=== PATIENT | female | born 1970 | race Caucasian/White ===

== ENCOUNTER → 2016-09-05 | Outpatient (CLI) | payer MEDICAID | LOC: OD 11:19 | PROVIDERS: ATTEND Physician Assistant Medical | DX: I39 Endocarditis and heart valve disorders in diseases classified elsewhere (principal) | CPT/HCPCS: 87040 ==

== ENCOUNTER → 2016-09-20 | Outpatient (CLI) | payer MEDICAID | LOC: RAD 13:03 | PROVIDERS: ATTEND Specialist | DX: R91.1 Solitary pulmonary nodule (principal); R22.0 Localized swelling, mass and lump, head | CPT/HCPCS: 70486; 71020 ==

== ENCOUNTER → 2016-10-19 | Outpatient (CLI) | payer MEDICAID ==
[2016-10-19 10:28] LABS: ALANINE AMINOTRANSFERASE 37 U/L (9-52); ALKALINE PHOSPHATASE 107 U/L (38-126); ANION GAP 15 (5-19); ASPARTATE AMINO TRANSFERASE 39 U/L (14-36); BILIRUBIN,DIRECT 0.3 mg/dL (0.0-0.4); BILIRUBIN,TOTAL 0.4 mg/dL (0.2-1.3); BLOOD UREA NITROGEN 9 mg/dL (7-20); C-REACTIVE PROTEIN 25.3 mg/L (<10.0); CALCIUM 9.2 mg/dL (8.4-10.2); CARBON DIOXIDE 30 mmol/L (22-30); CHLORIDE 101 mmol/L (98-107); CREATININE RESULT 0.79 mg/dL (0.52-1.25); GLUCOSE 101 mg/dL (75-110); POTASSIUM 4.4 mmol/L (3.6-5.0); SODIUM 145.7 mmol/L (137-145); TOTAL PROTEIN 7.6 g/dL (6.3-8.2); URIC ACID 4.7 mg/dL (2.5-7.5)
[2016-10-19 10:39] LABS: ALBUMIN 4.4 g/dL (3.5-5.0)
== END ==
LOC: OD 08:58
PROVIDERS: ATTEND Family Medicine
DX: M25.571 Pain in right ankle and joints of right foot (principal)
CPT/HCPCS: 36415; 80053; 84550; 85652; 86038; 86140; 86430

== ENCOUNTER 2016-11-16 08:23 | Outpatient (CLI) | payer MEDICAID ==
[~2016-11-16 08:23] MED LIST: FERRIC CARBOXYMALTOSE 750 MG in NORMAL SALINE 250 ML IV PRN; NORMAL SALINE 250 ML IV PRN
[2016-11-16 10:28] VITALS: BP 123/63
== END 2016-11-16 09:45 | disposition home or self-care (01) ==
LOC: II 08:23 → 5TH 08:26 → II 09:45
PROVIDERS: ATTEND Specialist
PROC: 3E033GC Introduction of Other Therapeutic Substance into Peripheral Vein, Percutaneous Approach (ICD-10-PCS; principal; 2016-11-16)
DX: D50.9 Iron deficiency anemia, unspecified (principal); K90.9 Intestinal malabsorption, unspecified
CPT/HCPCS: 96374; J7050; J1439; 96367

== ENCOUNTER 2016-11-23 08:32 | Outpatient (CLI) | payer MEDICAID ==
[2016-11-23 09:07] VITALS: BP 135/55
== END 2016-11-23 09:36 | disposition home or self-care (01) ==
LOC: II 08:32 → 5TH 08:33 → II 09:36
PROVIDERS: ATTEND Specialist
PROC: 3E033GC Introduction of Other Therapeutic Substance into Peripheral Vein, Percutaneous Approach (ICD-10-PCS; principal; 2016-11-23)
DX: D72.829 Elevated white blood cell count, unspecified (principal)
CPT/HCPCS: 96365; 96360; J7050; J1439

== ENCOUNTER 2016-12-24 09:20 | Day surgery (SDC) | payer MEDICAID ==
[~2016-12-24 09:20] MED LIST changes: -FERRIC CARBOXYMALTOSE 750 MG in NORMAL SALINE 250 ML IV PRN; -NORMAL SALINE 250 ML IV PRN; +PROPOFOL INJ 200 MG/20 ML VIAL IV ONE
[2016-12-24 11:03] VITALS: BP 100/55
--- NOTE | 2016-12-24 12:54 | Operative Report ---
Operative Report DATE OF SURGERY: 12/24/16 Operative Report: The risks, benefits and alternatives of the procedure including risks of bleeding, perforation requiring surgery are explained to the patient detail and informed consent was obtained. Patient was placed in the left, lateral decubital position. Timeout was called. Propofol medications administered. An Olympus endoscope was inserted into the patient's rectum. The scope was then carefully guided all the way to the cecum. The cecum was identified by the usual anatomical landmarks including the ileocecal valve as well as the appendiceal office. Photodocumentation is obtained. The scope was then sequentially pulled back. The rest segments of the colon including the ascending colon, hepatic flexure, transverse colon, splenic flexure, descending colon and finally to the rectosigmoid portions of the colon. Retroflexion maneuver was performed. Prep could have been better. There are several areas of solid residual material , this decreased visualization. PREOPERATIVE DIAGNOSIS: Personal history of polyps. Left lower quadrant abdominal pain. Family history of colorectal cancer POSTOPERATIVE DIAGNOSIS: Right side colon Inflammation status post biopsy. Internal hemorrhoids OPERATION: Colonoscopy with biopsy SURGEON: JOSE DAN ANESTHESIA: LMAC TISSUE REMOVED OR ALTERED: Right side colon Specimens obtained as noted COMPLICATIONS: None. ESTIMATED BLOOD LOSS: None. INTRAOPERATIVE FINDINGS: No AVMs, diverticulosis noted. PROCEDURE: Patient tolerated the procedure well. No immediate postprocedure complications are noted. Patient discharged in good condition. Discharge date 12/24/2016. Discharge diet: Regular. Discharge activity: Regular. 2-3 week follow-up to discuss findings. Patient is instructed to call the office or proceed to the emergency room should there be any further problems or questions. We will wait on pathology. 5 year surveillance colonoscopy is indicated.
== END 2016-12-24 10:55 | disposition home or self-care (01) ==
LOC: END 09:20
PROVIDERS: ATTEND Internal Medicine Gastroenterology
PROC: 0DBF8ZX Excision of Right Large Intestine, Via Natural or Artificial Opening Endoscopic, Diagnostic (ICD-10-PCS; principal; 2016-12-24 11:00)
DX: K52.9 Noninfective gastroenteritis and colitis, unspecified (principal); K64.8 Other hemorrhoids; Z86.010 Personal history of colon polyps; Z80.0 Family history of malignant neoplasm of digestive organs; E03.9 Hypothyroidism, unspecified; Z88.0 Allergy status to penicillin; Z88.2 Allergy status to sulfonamides; Z91.040 Latex allergy status
CPT/HCPCS: 45380; 88305 ×2; J2704; 810

== ENCOUNTER → 2017-01-09 | Outpatient (CLI) | payer MEDICAID ==
--- NOTE | 2017-01-09 15:07 | WOMENS IMAGING REPORT ---
EXAM DESCRIPTION: BILAT SCREENING MAMMO W/CAD COMPLETED DATE/TIME: 01/09/2017 10:52 am REASON FOR STUDY: Z12.31, ROUTINE SCREENING MAMMO Z12.31 ENCNTR SCREEN MAMMOGRAM FOR MALIGNANT NEOP LASM OF LOGAN COMPARISON: None. TECHNIQUE: Standard craniocaudal and mediolateral oblique views of each breast recorded using PROTEIN LOUNGEa l acquisition. LIMITATIONS: None. FINDINGS: No masses, calcifications or architectural distortion. No areas of suspicion. Read with the assistance of CAD. .[facility] - R2 Cenova Version 1.3 .[facility] - R2 Cenova Version 1.3 .[facility] - R2 Cenova Version 2.4 .[facility] - R2 Cenova Version 2.4 .[facility] - R2 Senior Quality Control Inspector Version 9.2 IMPRESSION: NORMAL MAMMOGRAM. BIRADS 1. BREAST DENSITY: a. The breasts are almost entirely fatty. BIRAD: 1 NEGATIVE RECOMMENDATION: ROUTINE SCREENING COMMENT: The patient has been notified of the results by letter per SA requirements. Additional no tification policies are in place for contacting patient with suspicious or incomplete findings. Quality ID #225: The [employer] recommends an annual screening mammogram for women aged 40 years or over. This facility utilizes a reminder system to ensure that all patients receive reminder letters, and/or direct phone calls for appointments. This includes reminders for routine scr eening mammograms, diagnostic mammograms, or other Breast Imaging Interventions when appropriate. Th is patient will be placed in the appropriate reminder system. The [employer] (ACR) has developed recommendations for screening MRI of the breast s in certain patient populations, to be used in conjunction with mammography. Breast MRI surveillanc e may be appropriate for women with more than 20% lifetime risk of developing breast cancer as deter mined by genetic testing, significant family history of the disease, or history of mantle radiation f or Hodgkins Disease. ACR Practice Guidelines 2008. TECHNICAL DOCUMENTATION: FINDING NUMBER: (1) ASSESSMENT: (1) JOB ID: [id number] [employer]- All Rights Reserved
== END ==
LOC: WI 10:21
PROVIDERS: ATTEND Obstetrics & Gynecology
DX: Z12.31 Encounter for screening mammogram for malignant neoplasm of breast (principal)
CPT/HCPCS: 77067; G0202

== ENCOUNTER → 2017-01-11 | Outpatient (CLI) | payer MEDICAID ==
[2017-01-11 10:40] LABS: ALANINE AMINOTRANSFERASE 63 U/L (9-52); ALBUMIN 4.4 g/dL (3.5-5.0); ALKALINE PHOSPHATASE 94 U/L (38-126); ASPARTATE AMINO TRANSFERASE 60 U/L (14-36); BILIRUBIN,DIRECT 0.4 mg/dL (0.0-0.4); BILIRUBIN,TOTAL 0.4 mg/dL (0.2-1.3); TOTAL PROTEIN 7.3 g/dL (6.3-8.2)
--- NOTE | 2017-01-11 10:57 | RADIOLOGY REPORT (SQ) ---
EXAM DESCRIPTION: HIPS BILATERAL COMPLETED DATE/TIME: 01/11/2017 9:50 am REASON FOR STUDY: PRIMARY OSTEOARTHRITIS, UNSPECIFIED SITE M50.30 OTHER CERVICAL DISC DEGENERATION, UNSP CERVICAL REGIO M51.36 OTHER INTERVERTEBRAL DISC DEGENERATION, LUMBAR REGION M19.91 PRIMARY OS TEOARTHRITIS, UNSPECIFIED SITE COMPARISON: None. NUMBER OF VIEWS: Two views TECHNIQUE: AP pelvis and additional frog-leg view of both hips. LIMITATIONS: None. FINDINGS: MINERALIZATION: Normal. HIPS: No acute fracture or dislocation. No worrisome bone lesions. PELVIS AND SACRUM: No acute fracture or dislocation. No worrisome bone lesions. PUBIS AND ISCHIUM: No acute fracture. LOWER LUMBAR SPINE: No significant findings as visualized. SOFT TISSUES: No findings. OTHER: No other significant finding. IMPRESSION: NEGATIVE STUDY OF THE PELVIS AND HIPS. TECHNICAL DOCUMENTATION: JOB ID: [id number] [email or web address]- All Rights Reserved
--- NOTE | 2017-01-11 11:01 | RADIOLOGY REPORT (SQ) ---
EXAM DESCRIPTION: C SP 4 OR 5 VIEWS COMPLETED DATE/TIME: 01/11/2017 9:50 am REASON FOR STUDY: OTHER CERVICAL DISC DEGENERATION, UNSP CERVICAL REGION,OTHER INTERVERTEBRAL M50.30 OTHER CERVICAL DISC DEGENERATION, UNSP CERVICAL REGIO M51.36 OTHER INTERVERTEBRAL DISC DEGENERATIO N, LUMBAR REGION M19.91 PRIMARY OSTEOARTHRITIS, UNSPECIFIED SITE COMPARISON: None. NUMBER OF VIEWS: Five views. TECHNIQUE: AP, lateral, obliques and odontoid radiographic images acquired of the cervical spine. LIMITATIONS: None. FINDINGS: MINERALIZATION: Normal. ALIGNMENT: Anatomic. VERTEBRAE: Vertebral bodies of normal height. DISCS: No significant osteophytes or sclerosis. Disc height maintained. FORAMINA: There is some degree of narrowing of the right neural foramen at C6-7 secondary to hypertro phic facet changes. LATERAL AND POSTERIOR ELEMENTS: Hypertrophic facet changes are present at several levels on the right side. HARDWARE: None in the spine. SOFT TISSUES: No masses or calcifications. Lung apices clear. OTHER: No other significant finding. IMPRESSION: Spondylosis and facet arthropathy as described. TECHNICAL DOCUMENTATION: JOB ID: [id number] [employer]- All Rights Reserved
--- NOTE | 2017-01-11 11:04 | RADIOLOGY REPORT (SQ) ---
EXAM DESCRIPTION: LUMBAR SPINE COMPLETE COMPLETED DATE/TIME: 01/11/2017 9:50 am REASON FOR STUDY: OTHER INTERVERTEBRAL DISC DEGENERATION, LUMBAR REGION M50.30 OTHER CERVICAL DISC DEGENERATION, UNSP CERVICAL REGIO M51.36 OTHER INTERVERTEBRAL DISC DEGENERATION, LUMBAR REGION M19.9 1 PRIMARY OSTEOARTHRITIS, UNSPECIFIED SITE COMPARISON: 09/09/2012 NUMBER OF VIEWS: Five views including obliques. TECHNIQUE: AP, lateral, oblique, and sacral radiographic images acquired of the lumbar spine. LIMITATIONS: None. FINDINGS: MINERALIZATION: Normal. SEGMENTATION: Normal. No transitional anatomy. ALIGNMENT: There is mild levoscoliosis at the thoracolumbar junction. VERTEBRAE: Maintained height. No fracture or worrisome bone lesion. DISCS: There is narrowing of the T12-L1 disc space. There is mild narrowing of the L2-3 and L3-4 dis c spaces. POSTERIOR ELEMENTS: Mild hypertrophic facet changes are present at L4-5 and L5-S1. HARDWARE: None in the spine. PARASPINAL SOFT TISSUES: Normal. PELVIS: Intact as visualized. No fractures or worrisome bone lesions. SI joints intact. OTHER: No other significant finding. IMPRESSION: There are mild degenerative disc changes and there is mild facet arthropathy. TECHNICAL DOCUMENTATION: JOB ID: [id number] [employer]- All Rights Reserved
[2017-01-12 03:37] LABS: HEPATITIS C VIRUS AB <0.1 s/co ratio (0.0-0.9)
== END ==
LOC: OD 08:59
PROVIDERS: ATTEND Obstetrics & Gynecology
DX: R94.5 Abnormal results of liver function studies (principal); M16.0 Bilateral primary osteoarthritis of hip; M50.30 Other cervical disc degeneration, unspecified cervical region; M51.36 Other intervertebral disc degeneration, lumbar region
CPT/HCPCS: 36415; 72050; 72110; 73522; 80076; 86803; 86804

== ENCOUNTER 2017-01-16 08:36 | Day surgery (SDC) | payer MEDICAID ==
[2017-01-08 11:24] LABS: HEMATOCRIT 45.6 % (36.0-47.0); HEMOGLOBIN 15.1 g/dL (12.0-15.5); HGB HCT DIFFERENCE -0.3; MEAN CORPUSCULAR HEMOGLOBIN 29.7 pg (27.0-33.4); MEAN CORPUSCULAR HGB CONC 33.2 g/dL (32.0-36.0); MEAN CORPUSCULAR VOLUME 90 fl (80-97); RED BLOOD COUNT 5.09 10^6/uL (3.72-5.28); RED CELL DISTRIBUTION WIDTH 17.4 % (11.5-14.0); WHITE BLOOD COUNT 13.4 10^3/uL (4.0-10.5)
[2017-01-08 11:46] LABS: ANION GAP 12 (5-19); BLOOD UREA NITROGEN 10 mg/dL (7-20); CALCIUM 9.1 mg/dL (8.4-10.2); CARBON DIOXIDE 30 mmol/L (22-30); CHLORIDE 100 mmol/L (98-107); CREATININE RESULT 0.73 mg/dL (0.52-1.25); GLUCOSE 77 mg/dL (75-110); POTASSIUM 4.1 mmol/L (3.6-5.0); SODIUM 141.6 mmol/L (137-145)
--- NOTE | 2017-01-08 23:38 | EKG REPORT ---
SEVERITY:- NORMAL ECG - SINUS RHYTHM : Confirmed by: Radha Vidal 08-Jan-2017 23:37:42
[~2017-01-16 08:36] MED LIST changes: +CIPROFLOXACIN 400 MG/D5W RTU 400 MG/200 ML RTUPB IV PRN; +LACTATED RINGERS 1000 ML IV PRN; +LIDOCAINE 0.5% INJ-PF (5 MG/ML) 50 ML SDV SUBCUT PRN; -PROPOFOL INJ 200 MG/20 ML VIAL IV ONE
[2017-01-16] MEDS ORDERED: MIDAZOLAM 2 MG/2 ML INJ ONE (09:54)
[2017-01-16] MEDS ORDERED: FENTANYL CITRATE INJ/PF 250 MCG/5 ML AMPULE ONE (09:54)
[2017-01-16] MEDS ORDERED: ACETAMINOPHEN 100 ML IV ONE (09:55)
[2017-01-16] MEDS ORDERED: PROPOFOL INJ 200 MG/20 ML VIAL IV ONE (09:55)
[2017-01-16] MEDS ORDERED: BUPIVACAINE HCL 0.25 % INJ/PF (2.5 MG/1 ML) 30 ML VIAL ONE (10:03)
[2017-01-16] MEDS ORDERED: PROMETHAZINE HCL INJ 25 MG/1 ML VIAL IV PRN ×2 (10:37)
[2017-01-16] MEDS ORDERED: FENTANYL CITRATE INJ/PF 100 MCG/2 ML AMPUL IV PRN ×3 (10:37)
[2017-01-16] MEDS ORDERED: OXYCODONE-ACETAMINOPHEN 5-325 MG TABLET PO PRN ×3 (10:37→11:08)
[2017-01-16] MEDS ORDERED: MORPHINE SULFATE 10 MG/ML INJ IV PRN ×2 (10:37→11:08)
[2017-01-16] MEDS ORDERED: MEPERIDINE HCL/PF INJ 25 MG/1 ML DISP.SYRIN IV PRN (10:37)
[2017-01-16] MEDS ORDERED: DIPHENHYDRAMINE HCL 50 MG/ML VIAL IV PRN (10:37)
--- NOTE | 2017-01-16 11:07 | Operative Report ---
Operative Report DATE OF SURGERY: 01/16/17 PREOPERATIVE DIAGNOSIS: Symptomatic umbilical hernia POSTOPERATIVE DIAGNOSIS: Same OPERATION: Umbilical herniorrhaphy with primary closure and Covidien mesh reinforcement 9 cm diameter SURGEON: RUTH KENNEY METAL HARDENER: RICHY HUERTAS ANESTHESIA: GA TISSUE REMOVED OR ALTERED: None COMPLICATIONS: None ESTIMATED BLOOD LOSS: Scant INTRAOPERATIVE FINDINGS: See below PROCEDURE: Patient was taken to the preop holding area the main operating room and general anesthesia was induced. Arms abducted, abdomen exposed, prepped and draped sterile fashion. Surgical plan and surgical timeout was conducted Skin was any size 1% lidocaine plain. A left upper quadrant stab was made with a knife and Veress needle inserted the peritoneal cavity pneumoperitoneum established. Veress needle was removed, 5 mm ports inserted a 5 mm flexible scope was inserted. There was minimal bleeding from the omentum which abated. Under direct visualization 2 additional ports were placed one in the left lower quadrant port in the right mid field. Findings are significant for small umbilical hernia. Using graspers electrocautery. The incarcerated retroperitoneal fat was removed from the umbilical hernia and left in situ in the peritoneal cavity. The fascial defect was approximately 3 cm in diameter. It was closed with 2 fyolev-[id number] #1 PDS sutures using the disposable suture passer which was passed through the abdominal wall after making a small rocco in the umbilical skin with 11 blade. The tissue approximated nicely. We then brought onto the field a 9 cm Covidien parietx mesh. This was oriented, labeled, and sutures placed at the 12, 3, 6, 9 :00 positions with 0 PDS suture. The mesh was rolled moistened and brought to the intra-abdominal wall to the right port site incision. The mesh was then on rolled, brought to the anterior abdominal wall and secured with the existing sutures using the suture passer. We then used the secure tack isra in place approximately 10 isra in a circumferential fashion securing the rest of the mesh to the anterior abdominal wall. All incisions were pre-anesthetized with lidocaine and wounds closed with 3-0 Vicryl benzoin Steri-Strips and a sterile bulky dressing placed in the umbilicus. Abdominal binder obtained and placed in position. The patient tolerated the procedure well, extubated, taken recovery in stable condition. The physician medical record assistant, Ms. Huertas, provided assistance during this case by: Assisting and port insertion, retracting tissue, instillation of local anesthesia and closure of skin incisions.
[2017-01-16] MEDS ORDERED: KETOROLAC TROMETHAMINE 60 MG/2 ML SDV IM PRN (11:08)
[2017-01-16] MEDS ORDERED: RINGERS SOLUTION,LACTATED 1,000 ML IV PRN (11:08)
[2017-01-16] MEDS ORDERED: ONDANSETRON HCL INJ/PF 4 MG/2 ML SDV IV PRN (11:08)
--- NOTE | 2017-01-16 11:15 | PDOC DISCHARGE SUMMARY ---
Discharge Summary (SDC) - Discharge Final Diagnosis: umbilical hernia Date of Surgery: 01/16/17 Discharge Date: 01/16/17 Condition: Stable Treatment or Instructions: [facility] [address], [place] [address] Discharge Instructions: Laparoscopic Surgery 1. General Information: a. DO NOT DRIVE a car or operate dangerous machinery for 3-4 days or while taking narcotic pain pills. b. DO NOT consume alcohol, tranquilizers, sleeping medications or any non- prescribed medications for 24 hours unless approved by your doctor or as long as taking narcotic prescription medications. c. DO NOT make important decisions or sign any important papers for the first 24 hours after surgery. d. When discharged home the same day of surgery have a responsible person with you for the first night. 2. Activity Restrictions: 4 weeks. a. NO heavy lifting, straining abdominal muscles, bending over a lot, yard work, house work, or sports for [address] for 3-4 days or while taking __pain medication___ . c. It is fine to go for walks, up and down steps, ride in a car. d. Elevate your head when sleeping/resting. 3. Treatment: a. You may shower 24 hours after surgery, no baths or swimming for 2 weeks. Leave umbilical dressing intact for five days (even when showering) then cover with bandaid. All other dressings or band-aids before shower but leave paper strips (steri-strips) on the skin to fall off on their own. If still on at postoperative visit they will be removed then. b. Drainage of fluid or blood is not unusual from an incision. If occurs, you can clean with peroxide and cotton ball daily and cover with dry gauze until the wound seals. c. If a lot of bleeding occurs, you can hold pressure with a gauze or cloth over the site for 10 minutes and it will usually stop. If bleeding continues you will need to call for possible evaluation in office or emergency room. 4. Medications: a. __Toradol_ may be taken for pain as needed, one or two tablets every 4-6 hours. Stop the narcotic when able since you cannot take it and drive, and they cause constipation. You may switch to plain Tylenol. b. You should resume all normal medications unless a change is specified by your doctors. c. 5. Diet: Begin with clear liquids and may progress to your normal diet if not nauseated. No high fat, high protein foods the day of surgery. 6. The following may occur after laparoscopic surgery: a. Shoulder or upper back ache from retained gas that should resolve in 1-2 days b. Soreness and bruising at incision sites will resolve with time. c. Scrotal swelling (labia in women) and bruising is often seen after hernia surgery. d. Sore throat e. Fatigue may last days to weeks. f. Difficulty urinating may occur and may need to come into emergency room for urinary catheter placement. 7. Notify Physician If: a. Worsening or pain not improved with pain medication b. Persistent nausea and vomiting c. Fever above 101 d. Persistent bleeding or swelling at operative site e. Unable to urinate and uncomfortable bladder 6-8 hours after surgery 8..Follow Up Care: a. Schedule a follow up appointment with your doctor for 2 weeks. In the event of any postoperative problems or questions or you may call the office during business hours or the On-Call physician evenings and weekends at [facility]. [facility] I understand the instructions for my postoperative care as described above and a copy has been given to me. Patient/Significant Other Witness Date Prescriptions: Ketorolac Tromethamine [Toradol 10 mg Tablet] 10 mg PO Q6HP PRN #20 tablet PRN Reason: Discharge Diet: As Tolerated Discharge Activity: No Lifting Over 10 Pounds Report the Following to Your Physician Immediately: Fever over 101 Degrees, Unusual Bleeding, Redness, Swelling, Drainage-Foul Smelling
[2017-01-16] MEDS ORDERED: DEXAMETHASONE SOD PHOSPHATE INJ 4 MG/1 ML VIAL ONE (11:58)
[2017-01-16] MEDS ORDERED: SUCCINYLCHOLINE CHLORIDE INJ 200 MG/10 ML VIAL ONE (11:58)
[2017-01-16] MEDS ORDERED: KETOROLAC TROMETHAMINE 60 MG/2 ML SDV ONE (11:58)
[2017-01-16] MEDS ORDERED: ONDANSETRON HCL INJ/PF 4 MG/2 ML SDV ONE (11:58)
[2017-01-16] MEDS ORDERED: LIDOCAINE 2% INJ-PF (20 MG/ML) 10 ML AMPUL ONE (11:58)
[2017-01-16 14:06] VITALS: BP 115/66
== END 2017-01-16 14:00 | disposition home or self-care (01) ==
LOC: OROUT 08:36
PROVIDERS: ATTEND Surgery
PROC: 0WUF0JZ Supplement Abdominal Wall with Synthetic Substitute, Open Approach (ICD-10-PCS; principal; 2017-01-16 10:30)
DX: K42.9 Umbilical hernia without obstruction or gangrene (principal); R73.03 Prediabetes; R01.1 Cardiac murmur, unspecified; E03.9 Hypothyroidism, unspecified; M19.90 Unspecified osteoarthritis, unspecified site; F32.9 Major depressive disorder, single episode, unspecified; F41.9 Anxiety disorder, unspecified; F17.210 Nicotine dependence, cigarettes, uncomplicated; D64.9 Anemia, unspecified; E66.9 Obesity, unspecified; I10 Essential (primary) hypertension; Z86.72 Personal history of thrombophlebitis; Z88.2 Allergy status to sulfonamides; Z86.79 Personal history of other diseases of the circulatory system; Z88.0 Allergy status to penicillin; Z80.0 Family history of malignant neoplasm of digestive organs; Z86.010 Personal history of colon polyps; Z79.899 Other long term (current) drug therapy; Z68.41 Body mass index [BMI] 40.0-44.9, adult
CPT/HCPCS: 93005; 36415 ×2; 84132; 84703; 85027; 80048; 93010; 49585; C1781; J2250; J1100; J1885; J3010; J0330; J2405; S0020; J2704; J0744; J3490; J0131; 750

== ENCOUNTER → 2017-04-03 | Outpatient (CLI) | payer MEDICAID ==
[2017-04-03 09:58] LABS: ALANINE AMINOTRANSFERASE 48 U/L (9-52); ALBUMIN 4.5 g/dL (3.5-5.0); ALKALINE PHOSPHATASE 95 U/L (38-126); ASPARTATE AMINO TRANSFERASE 43 U/L (14-36); BILIRUBIN,DIRECT 0.4 mg/dL (0.0-0.4); BILIRUBIN,TOTAL 0.4 mg/dL (0.2-1.3); TOTAL PROTEIN 7.3 g/dL (6.3-8.2)
== END ==
LOC: OD 08:37
PROVIDERS: ATTEND Physician Assistant
DX: B35.1 Tinea unguium (principal); L60.8 Other nail disorders
CPT/HCPCS: 36415; 80076

== ENCOUNTER → 2017-07-03 | Outpatient (CLI) | payer MEDICAID ==
[2017-07-03 12:10] LABS: ALANINE AMINOTRANSFERASE 48 U/L (9-52); ALBUMIN 4.4 g/dL (3.5-5.0); ALKALINE PHOSPHATASE 110 U/L (38-126); ASPARTATE AMINO TRANSFERASE 43 U/L (14-36); BILIRUBIN,DIRECT 0.2 mg/dL (0.0-0.4); BILIRUBIN,TOTAL 0.4 mg/dL (0.2-1.3); TOTAL PROTEIN 7.2 g/dL (6.3-8.2)
== END ==
LOC: DACC 10:56
PROVIDERS: ATTEND Physician Assistant
DX: B35.1 Tinea unguium (principal); L60.8 Other nail disorders
CPT/HCPCS: 36415; 80076

== ENCOUNTER → 2017-12-19 | Outpatient (CLI) | payer MEDICAID ==
[2017-12-19 12:55] LABS: ABSOLUTE BASOPHILS # (AUTO) 0.1 10^3/uL (0.0-0.2); ABSOLUTE EOSINOPHILS # (AUTO) 0.2 10^3/uL (0.0-0.6); ABSOLUTE LYMPHOCYTES (AUTO) 2.8 10^3/uL (0.5-4.7); ABSOLUTE MONOCYTES (AUTO) 0.7 10^3/uL (0.1-1.4); ABSOLUTE NEUT (AUTO) 11.6 10^3/uL (1.7-8.2); BASOPHILS % (AUTO) 0.6 % (0-2); EOSINOPHILS % (AUTO) 1.2 % (0-6); HEMATOCRIT 47.6 % (36.0-47.0); MEAN CORPUSCULAR HEMOGLOBIN 29.1 pg (27.0-33.4); MEAN CORPUSCULAR HGB CONC 33.6 g/dL (32.0-36.0); MEAN CORPUSCULAR VOLUME 87 fl (80-97); MONOCYTES % (AUTO) 4.8 % (3-13); PLATELET COUNT 287 10^3/uL (150-450); RED BLOOD COUNT 5.51 10^6/uL (3.72-5.28); RED CELL DISTRIBUTION WIDTH 14.6 % (11.5-14.0); SEGMENTED NEUTROPHILS % (AUTO) 75.4 % (42-78); TOTAL CELLS COUNTED % (AUTO) 100 %; WHITE BLOOD COUNT 15.4 10^3/uL (4.0-10.5)
--- NOTE | 2017-12-19 13:12 | RADIOLOGY REPORT (SQ) ---
EXAM DESCRIPTION: PARANASAL SINUSES COMPLETED DATE/TIME: 12/19/2017 1:01 pm REASON FOR STUDY: ACUTE AND SUBACUTE INFECTIVE ENDOCARDITIS,ACUTE CHRONIC SINUSITIS J01.90 ACUTE SI NUSITIS, UNSPECIFIED J32.9 CHRONIC SINUSITIS, UNSPECIFIED I33.0 ACUTE AND SUBACUTE INFECTIVE ENDOCA RDITIS COMPARISON: None. NUMBER OF VIEWS: Three views. TECHNIQUE: Images of the paranasal sinuses acquired. LIMITATIONS: None. FINDINGS: ORBITS: No fracture. No foreign body. SINUSES: No mucosal thickening. No air fluid levels. FACIAL BONES: No fracture. OTHER: No other significant finding. IMPRESSION: NO FOREIGN BODY OR FRACTURE. NO PLAIN RADIOGRAPHIC EVIDENCE FOR SINUS DISEASE. TECHNICAL DOCUMENTATION: JOB ID: [id number] [employer]- All Rights Reserved Reading location - IP/workstation name: [email or web address]
[2017-12-19 13:20] LABS: ALANINE AMINOTRANSFERASE 20 U/L (9-52); ALBUMIN 4.3 g/dL (3.5-5.0); ALKALINE PHOSPHATASE 132 U/L (38-126); ANION GAP 9 (5-19); ASPARTATE AMINO TRANSFERASE 23 U/L (14-36); BILIRUBIN,DIRECT 0.4 mg/dL (0.0-0.4); BILIRUBIN,TOTAL 0.4 mg/dL (0.2-1.3); BLOOD UREA NITROGEN 8 mg/dL (7-20); CALCIUM 9.4 mg/dL (8.4-10.2); CARBON DIOXIDE 30 mmol/L (22-30); CHLORIDE 104 mmol/L (98-107); GLUCOSE 88 mg/dL (75-110); POTASSIUM 4.6 mmol/L (3.6-5.0); SODIUM 143.2 mmol/L (137-145); TOTAL PROTEIN 7.8 g/dL (6.3-8.2)
--- NOTE | 2017-12-19 13:59 | RADIOLOGY REPORT (SQ) ---
EXAM DESCRIPTION: CHEST PA/LATERAL COMPLETED DATE/TIME: 12/19/2017 12:57 pm REASON FOR STUDY: ACUTE AND SUBACUTE INFECTIVE ENDOCARDITIS COMPARISON: 09/20/2016 EXAM PARAMETERS: NUMBER OF VIEWS: two views TECHNIQUE: Digital Frontal and Lateral radiographic views of the chest acquired. RADIATION DOSE: NA LIMITATIONS: none FINDINGS: LUNGS AND PLEURA: Decreased volume the left lung with retrocardiac opacity. Shift of medi astinal structures to the left. Chronic interstitial changes. MEDIASTINUM AND HILAR STRUCTURES: Mediastinal structures shifted to the left. HEART AND VASCULAR STRUCTURES: Heart normal size. No evidence for failure. BONES: No acute findings. HARDWARE: None in the chest. OTHER: No other significant finding. IMPRESSION: Likely left lower lobe atelectasis. Chronic lung changes. TECHNICAL DOCUMENTATION: JOB ID: [id number] [employer]- All Rights Reserved Reading location - IP/workstation name: [email or web address]
== END ==
LOC: OD 11:52
PROVIDERS: ATTEND Obstetrics & Gynecology
DX: J32.9 Chronic sinusitis, unspecified (principal); J42 Unspecified chronic bronchitis; I33.0 Acute and subacute infective endocarditis; E03.9 Hypothyroidism, unspecified; E11.9 Type 2 diabetes mellitus without complications; E78.5 Hyperlipidemia, unspecified
CPT/HCPCS: 36415; 70220; 71046; 80053; 84443; 85025; 87040

== ENCOUNTER 2018-01-13 16:00 | Emergency (ER) | payer MEDICAID ==
--- NOTE | 2018-01-13 17:31 | ER Document Report ---
ED Medical Screen (RME) - General Chief Complaint: Breathing Difficulty Stated Complaint: BREATHING PROBLEMS Time Seen by Provider: 01/13/18 17:30 Mode of Arrival: Ambulatory Information source: Patient Notes: 47-year-old smoker presents with complaints of shortness of breath difficulty breathing nonproductive cough of one-month duration. Patient has been on 2 rounds of antibiotics seen by her PCP today noted chest x-ray was worsening and sent patient in for evaluation Patient noted to be hypoxic 92% on arrival I have greeted and performed a rapid initial assessment of this patient. A comprehensive ED assessment and evaluation of the patient, analysis of test results and completion of the medical decision making process will be conducted by additional ED providers. PHYSICAL EXAMINATION: GENERAL: Well-appearing, well-nourished and in no acute distress. HEAD: Atraumatic, normocephalic. EYES: Pupils equal round extraocular movements intact, conjunctiva are normal. ENT: Nares patent NECK: Normal range of motion LUNGS: rhonchi on the right upper lobe Musculoskeletal: Normal range of motion NEUROLOGICAL: Normal speech, normal gait. PSYCH: Normal mood, normal affect. SKIN: Warm, Dry, normal turgor, no rashes or lesions noted. TRAVEL OUTSIDE OF THE [place] IN LAST 30 DAYS: No - Related Data Allergies/Adverse Reactions: latex [Latex] Allergy (Severe, Verified 01/16/17 08:55) Generalized Itching progesterone [Progesterone] Allergy (Severe, Verified 01/16/17 08:55) Chest pain Sulfa (Sulfonamide Antibiotics) Allergy (Severe, Verified 01/16/17 08:55) Hives Penicillins Allergy (Intermediate, Verified 01/16/17 08:55) Hives Past Medical History - Past Medical History Cardiac Medical History: Denies: Hx Coronary Artery Disease, Hx Heart Attack, Hx Hypertension Pulmonary Medical History: Reports: Hx Pneumonia Denies: Hx Asthma, Hx Bronchitis, Hx COPD Neurological Medical History: Denies: Hx Cerebrovascular Accident, Hx Seizures Musculoskeltal Medical History: Denies Hx Arthritis Past Surgical History: Reports: Hx Section, Hx Cholecystectomy, Hx Tonsillectomy, Hx Tubal Ligation - Immunizations Hx Diphtheria, Pertussis, Tetanus Vaccination: No - unsure Physical Exam - Vital signs Vitals: Temp Pulse Resp BP Pulse Ox 99.0 F 103 H 17 124/71 92 01/13/18 16:04 01/13/18 16:04 01/13/18 16:04 01/13/18 16:04 01/13/18 16:04 Course - Vital Signs Vital signs: Temp Pulse Resp BP Pulse Ox 99.0 F 103 H 17 124/71 92 01/13/18 16:04 01/13/18 16:04 01/13/18 16:04 01/13/18 16:04 01/13/18 16:04 Doctor's Discharge - Discharge Referrals: IRON LEON MD [Primary Care Provider] - Follow up as needed
[2018-01-13] MEDS ORDERED: IPRATROPIUM/ALBUTEROL 0.5-2.5 MG/3 ML AMPUL NEB ONE (17:35)
[2018-01-13 18:48] LABS: ABSOLUTE BASOPHILS # (AUTO) 0.1 10^3/uL (0.0-0.2); ABSOLUTE EOSINOPHILS # (AUTO) 0.1 10^3/uL (0.0-0.6); ABSOLUTE LYMPHOCYTES (AUTO) 2.3 10^3/uL (0.5-4.7); ABSOLUTE MONOCYTES (AUTO) 0.5 10^3/uL (0.1-1.4); ABSOLUTE NEUT (AUTO) 10.3 10^3/uL (1.7-8.2); BASOPHILS % (AUTO) 0.7 % (0-2); HEMATOCRIT 44.9 % (36.0-47.0); HEMOGLOBIN 15.1 g/dL (12.0-15.5); LYMPHOCYTES % (AUTO) 17.3 % (13-45); MEAN CORPUSCULAR HEMOGLOBIN 29.1 pg (27.0-33.4); MEAN CORPUSCULAR HGB CONC 33.7 g/dL (32.0-36.0); MEAN CORPUSCULAR VOLUME 86 fl (80-97); MONOCYTES % (AUTO) 4.1 % (3-13); PLATELET COUNT 279 10^3/uL (150-450); RED BLOOD COUNT 5.21 10^6/uL (3.72-5.28); RED CELL DISTRIBUTION WIDTH 14.6 % (11.5-14.0); SEGMENTED NEUTROPHILS % (AUTO) 76.9 % (42-78); TOTAL CELLS COUNTED % (AUTO) 100 %; WHITE BLOOD COUNT 13.4 10^3/uL (4.0-10.5)
[2018-01-13 19:08] LABS: ALANINE AMINOTRANSFERASE 20 U/L (9-52); ALKALINE PHOSPHATASE 131 U/L (38-126); ANION GAP 7 (5-19); ASPARTATE AMINO TRANSFERASE 25 U/L (14-36); BILIRUBIN,DIRECT 0.5 mg/dL (0.0-0.4); BILIRUBIN,TOTAL 0.5 mg/dL (0.2-1.3); BLOOD UREA NITROGEN 9 mg/dL (7-20); CALCIUM 9.3 mg/dL (8.4-10.2); CARBON DIOXIDE 27 mmol/L (22-30); CHLORIDE 106 mmol/L (98-107); CREATINE KINASE 67 U/L (30-135); GLUCOSE 115 mg/dL (75-110); POTASSIUM 3.6 mmol/L (3.6-5.0); SODIUM 139.9 mmol/L (137-145); TOTAL PROTEIN 7.3 g/dL (6.3-8.2)
[2018-01-13 19:20] LABS: CREATINE KINASE MB 0.78 ng/mL (<4.55); NT PRO BNP 157 pg/mL (<125)
--- NOTE | 2018-01-13 19:20 | ER Document Report ---
ED Respiratory Problem - General Chief Complaint: Breathing Difficulty Stated Complaint: BREATHING PROBLEMS Time Seen by Provider: 01/13/18 17:30 Mode of Arrival: Ambulatory Notes: Patient is a 47 year old female that comes emergency department for chief complaint of cough and difficulty breathing with intermittent wheezing episodes for the past 2 months. Worse over the past 1 month. Denies nausea vomiting, specific chest pain, lower extremity swelling. Seen by Dr. Pfeiffer, placed on 2 separate rounds of Levaquin without improvement. She denies fevers. She denies history of COPD or asthma although she does smoke regularly. She does not wear oxygen, does not have sleep apnea. She takes Synthroid, gabapentin, Suboxone (chronic back pain). Patient states that she had an x-ray, was told it was worse, was told to come here to get a CAT scan. TRAVEL OUTSIDE OF THE [place] IN LAST 30 DAYS: No - Related Data Allergies/Adverse Reactions: latex [Latex] Allergy (Severe, Verified 01/13/18 18:33) Generalized Itching progesterone [Progesterone] Allergy (Severe, Verified 01/13/18 18:33) Chest pain Sulfa (Sulfonamide Antibiotics) Allergy (Severe, Verified 01/13/18 18:33) Hives Penicillins Allergy (Intermediate, Verified 01/13/18 18:33) Hives Past Medical History - General Information source: Patient - Social History Smoking Status: Current Every Day Smoker Chew tobacco use (# tins/day): No Frequency of alcohol use: None Drug Abuse: None Lives with: Family Family History: Reviewed & Not Pertinent Patient has suicidal ideation: No Patient has homicidal ideation: No - Past Medical History Cardiac Medical History: Denies: Hx Coronary Artery Disease, Hx Heart Attack, Hx Hypertension Pulmonary Medical History: Reports: Hx Pneumonia Denies: Hx Asthma, Hx Bronchitis, Hx COPD Neurological Medical History: Denies: Hx Cerebrovascular Accident, Hx Seizures Renal/ Medical History: Denies: Hx Peritoneal Dialysis Musculoskeltal Medical History: Denies Hx Arthritis Past Surgical History: Reports: Hx Section, Hx Cholecystectomy, Hx Tonsillectomy, Hx Tubal Ligation - Immunizations Hx Diphtheria, Pertussis, Tetanus Vaccination: No - unsure Hx Pneumococcal Vaccination: 05/15/11 Review of Systems - Review of Systems Constitutional: No symptoms reported EENT: No symptoms reported Cardiovascular: No symptoms reported Respiratory: See HPI Gastrointestinal: No symptoms reported Genitourinary: No symptoms reported Female Genitourinary: No symptoms reported Musculoskeletal: No symptoms reported Skin: No symptoms reported Hematologic/Lymphatic: No symptoms reported Neurological/Psychological: No symptoms reported Physical Exam - Vital signs Vitals: Temp Pulse Resp BP Pulse Ox 99.0 F 103 H 17 124/71 92 01/13/18 16:04 01/13/18 16:04 01/13/18 16:04 01/13/18 16:04 01/13/18 16:04 - Notes Notes: GENERAL: Sleeping but easily aroused. No signs of distress. HEAD: Normocephalic, atraumatic. EYES: Pupils equal, round, and reactive to light. Extraocular movements intact. ENT: Oral mucosa moist, tongue midline. [Nares patent, no nasal septal hematoma , TM's intact.] NECK: Full range of motion. Supple. Trachea midline. LUNGS: Scattered coarse breath sounds and some decreased breath sounds but no wheezing, rales, rhonchi. No tachypnea or labored breathing. HEART: Regular rate and rhythm. No murmur ABDOMEN: Soft, non-tender. Non-distended. Bowel sounds present in all 4 quadrants. EXTREMITIES: Moves all 4 extremities spontaneously. No edema, normal radial and dorsalis pedis pulses bilaterally. No cyanosis. BACK: no cervical, thoracic, lumbar midline tenderness. No saddle anesthesia, normal distal neurovascular exam. NEUROLOGICAL: Alert and oriented x3. Normal speech. [cranial nerves II through XII grossly intact]. PSYCH: Normal affect, normal mood. SKIN: Warm, dry, normal turgor. No rashes or lesions noted. Course - Re-evaluation Re-evalutation: CBC shows mild leukocytosis at 13 with elevated neutrophils but no bandemia. No fever. On my evaluation I turned to the oxygen off and patient had no hypoxia, oxygen ranging from 95-97% on room air. Patient had already been treated with duo nebs. Some coarse and decreased breath sounds but no rales or overt rhonchi. Patient has been coughing for 2 months and had 2 rounds of Levaquin with no change. Chemistry generally unremarkable. CT reviewed, shows large left mediastinal mass with possible metastasis to liver. Report by radiologist: 1. There is no evidence of pulmonary emboli. 2. There is significantly reduced volume on the left secondary to considerable atelectasis that is secondary to a large mediastinal and left hilar mass. This results in narrowing of the left mainstem bronchus and and the left pulmonary arteries. Neoplasm likely. 3. There is an ill-defined 18 mm low-density lesion in the right lobe of the liver that could represent a metastatic lesion. Discussed with patient in detail. Patient's twin sister from cancer, patient was tearful but states acknowledgment and understanding that this will require immediate follow-up. I called and spoke with Dr. Haynes, oncology on- call, she took down patient's name and date of , asks that patient call tomorrow morning first thing for immediate follow-up. I discussed this with patient, she states that she will call in the morning, she is requesting to go home, patient is not hypoxic, vital signs stable, workup with no acute findings. Patient denies SI or HI, she states that she will be seen tomorrow to begin evaluation and treatment plan. Discussed return precautions, patient states understanding and agreement. - Vital Signs Vital signs: Temp Pulse Resp BP Pulse Ox 99.0 F 103 H 20 110/60 99 01/13/18 16:04 01/13/18 16:04 01/13/18 20:03 01/13/18 20:03 01/13/18 20:03 - Laboratory Result Diagrams: 01/13/18 18:07 01/13/18 18:07 Laboratory results interpreted by me: 01/13/18 01/13/18 01/13/18 18:07 18:07 18:07 WBC 13.4 H RDW 14.6 H Absolute Neutrophils 10.3 H Glucose 115 H Direct Bilirubin 0.5 H Alkaline Phosphatase 131 H NT-Pro-B Natriuret Pep 157 H Discharge - Discharge Clinical Impression: Cough, Mediastinal mass Condition: Stable Disposition: HOME, SELF-CARE Additional Instructions: Your cat scan is consistent with a cancer mass and one possible area where it has spread. I spoke with Dr. Haynes, Oncology [facility]. They are expecting for you to call the office in the morning to be seen in very close followup. Call the number listed. Return here for any concerning symptoms including difficulty breathing, spiking fever, passing out, or any other concerning symptoms. Referrals: DENILSON HAYNES MD [ACTIVE STAFF] - Follow up tomorrow
[2018-01-13 19:22] LABS: TROPONIN I < 0.012 ng/mL
--- NOTE | 2018-01-13 19:39 | RADIOLOGY REPORT (SQ) ---
EXAM DESCRIPTION: CTA CHEST COMPLETED DATE/TIME: 01/13/2018 6:50 pm REASON FOR STUDY: hypoxemia COMPARISON: Chest x-ray 01/13/2018 chest x-ray 12/19/2017 TECHNIQUE: CT scan of the chest performed using helical scanning technique with dynamic intravenous contrast injection. Images reviewed with lung, soft tissue and bone windows. Reconstructed coronal and sagittal MPR images reviewed. Additional 3 dimensional post-processing performed to develop Maximal Intensity Projection images (IL P). All images stored on PACS. All CT scanners at this facility use dose modulation, iterative reconstruction, and/or weight based d osing when appropriate to reduce radiation dose to as low as reasonably achievable (ALARA). [facility]: Dose Right [facility]: CareDose [facility]: Dose Right [facility]: Teradose 4D [facility]: [employer] CONTRAST TYPE AND DOSE: contrast/concentration: Isovue 370.00 mg/ml; Total Contrast Delivered: 153.0 ml; Total Saline Delivered: 140.0 ml Contrast bolus optimized for the pulmonary arteries. Not diagnostic for the aorta. RENAL FUNCTION: BUN 8 creatinine 0.8 RADIATION DOSE: CT Rad equipment meets quality standard of care and radiation dose reduction techniq ues were employed. CTDIvol: 5.0 - 29.8 mGy. DLP: 1938 mGy-cm. . LIMITATIONS: None. FINDINGS: LUNGS AND PLEURA: Significantly reduced volume in the left hemithorax. Considerable left lower lobe and upper lobe atelectasis. AORTA AND GREAT VESSELS: No aneurysm. No dissection. HEART: No pericardial effusion. No significant coronary artery calcifications. PULMONARY ARTERIES: No emboli visualized in the main pulmonary arteries or the segmental branches. L eft pulmonary arteries are narrowed. HILAR AND MEDIASTINAL STRUCTURES: There is a large mass in the mediastinum and left hilum. There is marked narrowing of the left mainstem bronchus. HARDWARE: None in the chest. UPPER ABDOMEN: Ill-defined low-density lesion in the right lobe of the liver on image 98 series 6. THYROID AND OTHER SOFT TISSUES: No masses. No adenopathy. BONES: No acute or significant finding. 3D MIPS: Confirm above findings. OTHER: No other significant finding. IMPRESSION: 1. There is no evidence of pulmonary emboli. 2. There is significantly reduced volume on the left secondary to considerable atelectasis that is s econdary to a large mediastinal and left hilar mass. This results in narrowing of the left mainstem bronchus and and the left pulmonary arteries. Neoplasm likely. 3. There is an ill-defined 18 mm low-density lesion in the right lobe of the liver that could repres ent a metastatic lesion. COMMENT: Quality ID # 436: Final reports with documentation of one or more dose reduction techniques (e.g., Automated exposure control, adjustment of the mA and/or kV according to patient size, use of iterative reconstruction technique) TECHNICAL DOCUMENTATION: JOB ID: [id number] [employer]- All Rights Reserved Reading location - IP/workstation name: [email or web address]
[2018-01-13 20:19] VITALS: BP 110/60
--- NOTE | 2018-01-14 06:08 | EKG REPORT ---
SEVERITY:- BORDERLINE ECG - SINUS RHYTHM BORDERLINE T ABNORMALITIES, DIFFUSE LEADS : Confirmed by: Alvarado Ontiveros MD 14-Jan-2018 06:07:41
== END 2018-01-13 20:19 | disposition home or self-care (01) ==
LOC: ER 16:00
DX: R05 Cough (principal); R22.2 Localized swelling, mass and lump, trunk; J98.11 Atelectasis; K76.9 Liver disease, unspecified; R09.89 Other specified symptoms and signs involving the circulatory and respiratory systems; D72.828 Other elevated white blood cell count; F17.200 Nicotine dependence, unspecified, uncomplicated; M54.9 Dorsalgia, unspecified; G89.29 Other chronic pain; Z79.891 Long term (current) use of opiate analgesic; Z79.899 Other long term (current) drug therapy; Z87.01 Personal history of pneumonia (recurrent); Z80.9 Family history of malignant neoplasm, unspecified; Z91.040 Latex allergy status; Z88.8 Allergy status to other drugs, medicaments and biological substances; Z88.2 Allergy status to sulfonamides; Z88.0 Allergy status to penicillin
CPT/HCPCS: 93005; 94640; 99285; 36415; 82553; 82550; 85025; 80053; 84484; 83880; 71275; 93010; J7620

== ENCOUNTER → 2018-01-13 | Outpatient (CLI) | payer MEDICAID ==
--- NOTE | 2018-01-13 14:04 | RADIOLOGY REPORT (SQ) ---
EXAM DESCRIPTION: CHEST PA/LATERAL COMPLETED DATE/TIME: 01/13/2018 1:50 pm REASON FOR STUDY: COUGH;LBP COMPARISON: 12/19/2017 EXAM PARAMETERS: NUMBER OF VIEWS: two views TECHNIQUE: Digital Frontal and Lateral radiographic views of the chest acquired. RADIATION DOSE: NA LIMITATIONS: none FINDINGS: LUNGS AND PLEURA: Since the prior examination, increased opacity in the left hemithorax w ith some sparing of the left apex- upper lobe. Shift of the cardiomediastinal structures to the left of the midline. Blunting of the left costophrenic angle suggest small to mild left pleural effusion . There appears to be some occlusion of the left mainstem bronchus. The right lung remains clear. No pneumothorax. MEDIASTINUM AND HILAR STRUCTURES: No masses or contour abnormalities. HEART AND VASCULAR STRUCTURES: Heart normal size. No evidence for failure. BONES: No acute findings. HARDWARE: None in the chest. OTHER: No other significant finding. IMPRESSION: 1. Interval worsening in the appearance of the left hemithorax with opacification prese nt(some sparing of the left apex-left upper lobe), small to mild left pleural effusion and shift of t he cardiomediastinal structures to the left of the midline. There appears be some occlusion of the l eft mainstem bronchus. Further evaluation with CT chest with IV contrast suggested. COMMENT: 1 The results of this examination were discussed with the patient's provider on 01/13/2018 at 13:57 hours. TECHNICAL DOCUMENTATION: JOB ID: [id number] [employer]- All Rights Reserved Reading location - IP/workstation name: [email or web address]
[2018-01-13 14:12] LABS: ABSOLUTE BASOPHILS # (AUTO) 0.2 10^3/uL (0.0-0.2); ABSOLUTE EOSINOPHILS # (AUTO) 0.1 10^3/uL (0.0-0.6); ABSOLUTE LYMPHOCYTES (AUTO) 2.9 10^3/uL (0.5-4.7); ABSOLUTE MONOCYTES (AUTO) 0.7 10^3/uL (0.1-1.4); ABSOLUTE NEUT (AUTO) 11.7 10^3/uL (1.7-8.2); BASOPHILS % (AUTO) 1.1 % (0-2); EOSINOPHILS % (AUTO) 0.6 % (0-6); HEMATOCRIT 41.7 % (36.0-47.0); HEMOGLOBIN 14.3 g/dL (12.0-15.5); LYMPHOCYTES % (AUTO) 18.5 % (13-45); MEAN CORPUSCULAR HEMOGLOBIN 29.4 pg (27.0-33.4); MEAN CORPUSCULAR HGB CONC 34.3 g/dL (32.0-36.0); MEAN CORPUSCULAR VOLUME 86 fl (80-97); MONOCYTES % (AUTO) 4.5 % (3-13); PLATELET COUNT 292 10^3/uL (150-450); RED BLOOD COUNT 4.87 10^6/uL (3.72-5.28); RED CELL DISTRIBUTION WIDTH 14.4 % (11.5-14.0); SEGMENTED NEUTROPHILS % (AUTO) 75.3 % (42-78); TOTAL CELLS COUNTED % (AUTO) 100 %; WHITE BLOOD COUNT 15.6 10^3/uL (4.0-10.5)
--- NOTE | 2018-01-13 14:37 | RADIOLOGY REPORT (SQ) ---
EXAM DESCRIPTION: LUMBAR SPINE COMPLETE COMPLETED DATE/TIME: 01/13/2018 1:50 pm REASON FOR STUDY: COUGH;LBP R05 COUGH M54.5 LOW BACK PAIN COMPARISON: 01/11/2017 NUMBER OF VIEWS: Five views including obliques. TECHNIQUE: AP, lateral, oblique, and sacral radiographic images acquired of the lumbar spine. LIMITATIONS: None. FINDINGS: MINERALIZATION: Normal. SEGMENTATION: Normal. No transitional anatomy. ALIGNMENT: Mild levoconvex scoliosis of the lumbar spine, stable finding. VERTEBRAE: Maintained height. No fracture or worrisome bone lesion. DISCS: Mild to moderate disc space narrowing at L2-L3, L3-L4 and at T12-L1. Slight interval progres jeanette of disc space narrowing at L2-L3. Small osteophytes project off of the lumbar vertebrae. POSTERIOR ELEMENTS: Mild facet arthrosis lower lumbar spine. Pedicles are intact. No pars defect o r posterior arch defects. HARDWARE: None in the spine. PARASPINAL SOFT TISSUES: Normal. PELVIS: Intact as visualized. No fractures or worrisome bone lesions. SI joints intact. OTHER: No other significant finding. IMPRESSION: 1 Mild to moderate degenerative changes and disc disease at L2-3, L3-4 and T12-L1. Slig ht interval progression of disc disease at L2-3 since the prior study dated 01/11/2017. TECHNICAL DOCUMENTATION: JOB ID: [id number] [employer]- All Rights Reserved Reading location - IP/workstation name: [email or web address]
== END ==
LOC: OD 13:14
PROVIDERS: ATTEND Obstetrics & Gynecology
DX: M54.5 Low back pain (principal); M51.35 Other intervertebral disc degeneration, thoracolumbar region; J40 Bronchitis, not specified as acute or chronic
CPT/HCPCS: 36415; 71046; 72110; 85025

== ENCOUNTER → 2018-02-12 | Outpatient (CLI) | payer MEDICAID ==
--- NOTE | 2018-02-12 09:35 | RADIOLOGY REPORT (SQ) ---
EXAM DESCRIPTION: CT CHEST WITH COMPLETED DATE/TIME: 02/12/2018 8:40 am REASON FOR STUDY: LUNG CA (C34.2) C34.2 MALIGNANT NEOPLASM OF MIDDLE LOBE, BRONCHUS OR LUNG COMPARISON: 01/13/2018. TECHNIQUE: CT scan of the chest performed using helical scanning technique with dynamic intravenous contrast injection. Images reviewed with lung, soft tissue and bone windows. Reconstructed coronal and sagittal MPR images reviewed. All images stored on PACS. All CT scanners at this facility use dose modulation, iterative reconstruction, and/or weight based d osing when appropriate to reduce radiation dose to as low as reasonably achievable (ALARA). [facility]: Dose Right [facility]: CareDose [facility]: Dose Right [facility]: Teradose 4D [facility]: [employer] CONTRAST TYPE AND DOSE: Not provided. RENAL FUNCTION: Not provided. RADIATION DOSE: . LIMITATIONS: None. FINDINGS: LUNGS AND PLEURA: Progressive left lung opacification. Consolidation in the upper lobe wi th complete consolidation and collapse now noted in the left lower lobe. Associated left pleural eff usion now also noted. Minimal left apical aeration on today's study. Shift of mediastinal structure s to the left. HILAR AND MEDIASTINAL STRUCTURES: Extensive abnormal confluent subcarinal tissue extends along the le ft mainstem bronchus, now obstructed. Enlarged nodes pretracheal as well. HEART AND VASCULAR STRUCTURES: Mild pericardial fluid/ thickening, as before. No aortic aneurysm or dissection. Narrowed but patent left main pulmonary artery. HARDWARE: None in the chest. UPPER ABDOMEN: See separate dictation today. THYROID AND OTHER SOFT TISSUES: No masses. No adenopathy. BONES: Incompletely assessed L1 vertebral sclerosis. See abdominopelvic study separately dictated. OTHER: No other significant finding. IMPRESSION: 1. Progressive consolidation and collapse in the left lung, now essentially completely n on aerated. Associated pleural fluid. Mediastinal shift with confluent mass in the left hilum and s ubcarinal. TECHNICAL DOCUMENTATION: JOB ID: [id number] Quality ID # 436: Final reports with documentation of one or more dose reduction techniques (e.g., Au tomated exposure control, adjustment of the mA and/or kV according to patient size, use of iterative reconstruction technique) 2010 [employer]- All Rights Reserved Reading location - IP/workstation name: [email or web address]
--- NOTE | 2018-02-12 09:55 | RADIOLOGY REPORT (SQ) ---
EXAM DESCRIPTION: CT ABD/PELVIS WITH IV ONLY COMPLETED DATE/TIME: 02/12/2018 8:40 am REASON FOR STUDY: LUNG CA (C34.2) C34.2 MALIGNANT NEOPLASM OF MIDDLE LOBE, BRONCHUS OR LUNG COMPARISON: None. Please see separately dictated CT chest same date. TECHNIQUE: CT scan of the abdomen and pelvis performed with intravenous and oral contrast using vashti jazmine scanning technique with dynamic intravenous contrast injection. Images reviewed with lung, soft t issue, and bone windows. Reconstructed coronal and sagittal MPR images reviewed. Delayed images for e valuation of the urinary system also acquired. All images stored on PACS. All CT scanners at this facility use dose modulation, iterative reconstruction, and/or weight based d osing when appropriate to reduce radiation dose to as low as reasonably achievable (ALARA). [facility]: Dose Right [facility]: CareDose [facility]: Dose Right [facility]: Teradose 4D [facility]: [employer] CONTRAST TYPE AND DOSE: contrast/concentration: Isovue 370.00 mg/ml; Total Contrast Delivered: 99.0 ml; Total Saline Delivered: 69.0 ml RENAL FUNCTION: GFR > 60. RADIATION DOSE: CT Rad equipment meets quality standard of care and radiation dose reduction techniq ues were employed. CTDIvol: 11.0 - 16.1 mGy. DLP: 2085 mGy-cm.. LIMITATIONS: None. FINDINGS: LOWER CHEST: Please see separately dictated CT chest same date. LIVER: Innumerable diffuse low density round lesions throughout the liver consistent with metastatic disease. SPLEEN: Normal size. No focal lesions. PANCREAS: No masses. No significant calcifications. No adjacent inflammation or peripancreatic fluid collections. Pancreatic duct not dilated. GALLBLADDER: Surgically absent. ADRENAL GLANDS: Small nodes next to the left adrenal. Otherwise unremarkable. RIGHT KIDNEY AND URETER: No solid masses. No significant calcification. No hydronephrosis or hydroure ter. LEFT KIDNEY AND URETER: No solid masses. No significant calcification. No hydronephrosis or hydrouret er. AORTA AND VESSELS: Normal caliber aorta with generally patent major arterial branches. No venous leandra t detected. Prominent portal lymph nodes are present, confluent. Likely measuring up to almost 3 cm in short axis. Subcentimeter gastrohepatic nodes also noted. RETROPERITONEUM: No retroperitoneal adenopathy, hemorrhage or masses. BOWEL AND PERITONEAL CAVITY: No obstruction. No visualized masses. No free fluid. No inflammatory ch anges or thickening of bowel wall. APPENDIX: Normal. PELVIS: Trace free fluid. ABDOMINAL WALL: No masses. No hernias. BONES: T12-L1 endplate sclerosis anteriorly. This appears to be related to disc disease. No suspici ous sclerotic or lytic bone lesions to suggest metastatic disease. OTHER: No other significant finding. IMPRESSION: 1. Diffuse liver metastases. Portal adenopathy. TECHNICAL DOCUMENTATION: JOB ID: [id number] Quality ID # 436: Final reports with documentation of one or more dose reduction techniques (e.g., Au tomated exposure control, adjustment of the mA and/or kV according to patient size, use of iterative reconstruction technique) 2010 [employer]- All Rights Reserved Reading location - IP/workstation name: [email or web address]
== END ==
LOC: RAD 07:56
PROVIDERS: ATTEND Internal Medicine
DX: C34.2 Malignant neoplasm of middle lobe, bronchus or lung (principal); C78.7 Secondary malignant neoplasm of liver and intrahepatic bile duct
CPT/HCPCS: 71260; 74177

== ENCOUNTER → 2018-02-13 | Outpatient (CLI) | payer MEDICAID ==
--- NOTE | 2018-02-13 22:28 | RADIOLOGY REPORT (SQ) ---
EXAM DESCRIPTION: MRI HEAD COMBO COMPLETED DATE/TIME: 02/13/2018 9:02 pm REASON FOR STUDY: C34.2 MALIGNANT NEOPLASM OF MIDDLE LOBE, BRONCHUS OR LUNG C34.2 MALIGNANT NEOPLAS M OF MIDDLE LOBE, BRONCHUS OR LUNG COMPARISON: None. TECHNIQUE: Multiplanar imaging includes noncontrasted T1, T2, FLAIR, diffusion with ADC map and post gadolinium contrast T1 sequences. Images stored on PACS. CONTRAST TYPE AND DOSE: 15 mL Prohance. RENAL FUNCTION: Creatinine 0.8 GFR greater than 60 LIMITATIONS: None. FINDINGS: ANATOMY: No anomalies. Normal vascular flow voids. Pituitary fossa normal. CSF SPACES: Normal in size and contour. No hemorrhage. CEREBRUM: Sulci and gyri normal in size and contour. Normal white matter signal on FLAIR imaging. No evidence of hemorrhage, mass, or extraaxial fluid collection. No abnormal enhancement post contrast. POSTERIOR FOSSA: No signal alteration. No hemorrhage. No edema, masses, or mass effect. Internal lew tory canals, cerebellopontine angles, mastoids normal. No enhancing lesions. No abnormal enhancement post contrast. DIFFUSION IMAGING: Negative for acute or subacute infarction. ORBITS: No masses. Globes normal. PARANASAL SINUSES: No fluid levels. Mucosa normal. OTHER: No other significant finding. IMPRESSION: NORMAL MRI OF THE BRAIN WITHOUT AND WITH INTRAVENOUS GADOLINIUM CONTRAST. EVIDENCE OF ACUTE STROKE: NO. TECHNICAL DOCUMENTATION: JOB ID: [id number] [employer]- All Rights Reserved Reading location - IP/workstation name: [email or web address]
== END ==
LOC: RAD 19:04
PROVIDERS: ATTEND Internal Medicine
DX: C34.2 Malignant neoplasm of middle lobe, bronchus or lung (principal)
CPT/HCPCS: 82565; 70553; A9576

== ENCOUNTER → 2018-02-17 | Outpatient (CLI) | payer MEDICAID ==
--- NOTE | 2018-02-17 13:22 | RADIOLOGY REPORT (SQ) ---
EXAM DESCRIPTION: NM WHOLE BODY BONE SCAN COMPLETED DATE/TIME: 02/17/2018 12:58 pm REASON FOR STUDY: MALIGNANT NEOPLASM OF MIDDLE LOBE, BRONCHUS OR LUNG C34.2 MALIGNANT NEOPLASM OF M IDDLE LOBE, BRONCHUS OR LUNG COMPARISON: CT Chest abdomen and pelvis 02/12/2018 CT chest 01/13/2018 RADIONUCLIDE AND DOSE: 21.8 millicuries Tc99m MDP. The route of agent administration: Intravenous. ADDITIONAL DRUGS AND DOSES: None. TECHNIQUE: Routine delayed images at 3 hours post radionuclide injection acquired of the bony skelet on including anterior and posterior whole-body projections and additional focused images as needed. LIMITATIONS: None. FINDINGS: BONES: Multiple bony metastatic lesions are present with increased uptake over the calvari um, right and left proximal humeri, ribs, thoracic and lumbar spine, bony pelvis, right proximal mid and distal femur, right proximal tibia. There is increased uptake at the right ankle, correlate clinically for trauma KIDNEYS: Symmetric excretion without obstruction. OTHER: No other significant finding. IMPRESSION: Widespread bony metastatic lesions COMMENT: Quality measure 147: Current bone scan is compared with any available plain radiographs, p rior bone scans, and CT/MRI. TECHNICAL DOCUMENTATION: JOB ID: [id number] [employer]- All Rights Reserved Reading location - IP/workstation name: [email or web address]
== END ==
LOC: RAD 08:36
PROVIDERS: ATTEND Internal Medicine
DX: C34.2 Malignant neoplasm of middle lobe, bronchus or lung (principal); C79.51 Secondary malignant neoplasm of bone
CPT/HCPCS: 78306; A9561; Q9969

== ENCOUNTER → 2018-02-28 | Outpatient (CLI) | payer MEDICAID ==
--- NOTE | 2018-02-28 17:46 | WOMENS IMAGING REPORT ---
EXAM DESCRIPTION: 3D SCREENING MAMMO BILAT COMPLETED DATE/TIME: 02/28/2018 2:28 pm REASON FOR STUDY: ROUTINE SCREENING MAMMOGRAM Z12.31 Z12.31 ENCNTR SCREEN MAMMOGRAM FOR MALIGNANT N EOPLASM OF LOGAN COMPARISON: 01/09/2017 TECHNIQUE: Standard craniocaudal and mediolateral oblique views of each breast recorded using digita l acquisition and breast tomosynthesis. LIMITATIONS: None. FINDINGS: No masses, calcifications or architectural distortion. No areas of suspicion. Read with the assistance of CAD. .[facility] - R2 Cenova Version 1.3 .[facility] Imaging - R2 Cenova Version 1.3 .[facility] Imaging - R2 Cenova Version 2.4 .[facility] [place] [place] - R2 Cenova Version 2.4 .[facility] - R2 Knife Edger Version 9.2 IMPRESSION: NORMAL MAMMOGRAM. BIRADS 1. BREAST DENSITY: a. The breasts are almost entirely fatty. BIRAD: 1 NEGATIVE RECOMMENDATION: ROUTINE SCREENING Please continue yearly bilateral screening tomosynthesis in February 2019 COMMENT: The patient has been notified of the results by letter per MQSA requirements. Additional no tification policies are in place for contacting patient with suspicious or incomplete findings. Quality ID #225: The [employer] College [employer] recommends an annual screening mammogram for women aged 40 years or over. This facility utilizes a reminder system to ensure that all patients receive reminder letters, and/or direct phone calls for appointments. This includes reminders for routine scr eening mammograms, diagnostic mammograms, or other Breast Imaging Interventions when appropriate. Th is patient will be placed in the appropriate reminder system. The [employer] College [employer] (ACR) has developed recommendations for screening MRI of the breast s in certain patient populations, to be used in conjunction with mammography. Breast MRI surveillanc e may be appropriate for women with more than 20% lifetime risk of developing breast cancer as deter mined by genetic testing, significant family history of the disease, or history of mantle radiation f or Hodgkins Disease. ACR Practice Guidelines 2008. DBT Technology DBT is a type of tomographic mammography. With conventional mammography, overlapping breast tissue ma y make lesions difficult to detect, even with good compression. DBT uses an x-ray tube that rotates a round the breast, taking images at different angles. These images are then combined to create thin sl ices of the breast that the radiologist can view as a 3D reconstruction. The MuseSt[employer] unit can perform full-field digital mammograms (2D imaging); or DBT (3D imaging); or both, in a combination mode that quickly performs both the mammogram and the tomosynthesis scan while the breast is still compressed. PQRS 6045F: Fluoroscopic imaging is not utilized for breast tomosynthesis. TECHNICAL DOCUMENTATION: FINDING NUMBER: (1) ASSESSMENT: (1) JOB ID: [id number] [employer]- All Rights Reserved Reading location - IP/workstation name: [email or web address]
== END ==
LOC: WI 15:05
PROVIDERS: ATTEND Obstetrics & Gynecology
DX: Z12.31 Encounter for screening mammogram for malignant neoplasm of breast (principal)
CPT/HCPCS: 77063; 77067

== ENCOUNTER → 2018-03-24 | Outpatient (CLI) | payer MEDICAID ==
--- NOTE | 2018-03-24 11:33 | RADIOLOGY REPORT (SQ) ---
EXAM DESCRIPTION: CT CHEST WITH; CT ABD/PELVIS WITH IV ONLY COMPLETED DATE/TIME: 03/24/2018 10:03 am REASON FOR STUDY: LUNG CA (C34.2) C34.2 MALIGNANT NEOPLASM OF MIDDLE LOBE, BRONCHUS OR LUNG COMPARISON: CT CHEST 01/13/2018 CT CHEST ABDOMEN PELVIS 02/12/2018 CONTRAST TYPE AND DOSE: contrast/concentration: Isovue 350.00 mg/ml; Total Contrast Delivered: 100.0 ml; Total Saline Delivered: 72.0 ml RENAL FUNCTION: Creatinine 0.8 TECHNIQUE: CT scan of the chest performed using helical scanning technique with dynamic intravenous contrast injection. Images reviewed with lung, soft tissue and bone windows. Reconstructed coronal a nd sagittal MPR images reviewed. All images stored on PACS. CT scan of the abdomen and pelvis performed with intravenous and without oral contrastusing helical s payton technique with dynamic intravenous contrast injection. Images reviewed with lung, soft tissu e and bone windows. Reconstructed coronal and sagittal MPR images reviewed. Delayed images for eval uation of the urinary system also acquired and evaluated. All images stored on PACS. All CT scanners at this facility use dose modulation, iterative reconstruction, and/or weight based d osing when appropriate to reduce radiation dose to as low as reasonably achievable (ALARA). [facility]: Dose Right [facility]: CareDose [facility]: Dose Right [facility]: Teradose 4D [facility]: Smart Technologies RADIATION DOSE: CT Rad equipment meets quality standard of care and radiation dose reduction techniq ues were employed. CTDIvol: 10.2 - 17.1 mGy. DLP: 2111 mGy-cm. . LIMITATIONS: None. FINDINGS: CHEST: LUNGS AND PLEURA: There is high-grade narrowing of the distal left mainstem bronchus, occlusion of th e left upper lobe bronchus and high-grade narrowing of the left lower lobe bronchi. This represents slight improvement, given that the left mainstem bronchus was occluded on 02/12/2018. There is good aeration of the left upper lobe. Complete collapse of the left lower lobe is present. No left pleural effusion. Right lung and pleural space are unremarkable. Right-sided airways are widely patent. HILAR AND MEDIASTINAL STRUCTURES: Decrease in size of adenopathy compared to 02/12/2018 as follows: 1.8 x 1.5 cm prevascular lymph node image 17 (was 2.5 x 1.6 cm 02/12/2018). 2 x 1.1 cm precarinal lymph node image 20 (was 4.1 x 2.8 cm 02/12/2018). 4.4 x 2.2 cm left hilar mass image 22 (significantly smaller than on 02/12/2018, difficult to measure a t that time because of adjacent lung collapse) HEART AND VASCULAR STRUCTURES: Stable moderate to large pericardial effusion. No cardiac valve or co ronary artery calcifications. HARDWARE: None. THYROID AND OTHER SOFT TISSUES: No masses. No adenopathy. BONES: Since the prior study, there are multiple new foci of bony sclerosis throughout the thoracic s pine likely treated metastatic disease. OTHER: No other significant finding. ABDOMEN AND PELVIS: LIVER: No masses. The multiple liver metastatic lesions seen on 02/12/2018 are no longer identified. SPLEEN: Normal size. No focal lesions. PANCREAS: No masses. No significant calcifications. No adjacent inflammation or peripancreatic fluid collections. Pancreatic duct not dilated. GALLBLADDER: No identified stones by CT criteria. No inflammatory changes to suggest cholecystitis. ADRENAL GLANDS: No significant masses or asymmetry. RIGHT KIDNEY AND URETER: No solid masses. No significant calcification. No hydronephrosis or hydroure ter. LEFT KIDNEY AND URETER: No solid masses. No significant calcification. No hydronephrosis or hydrouret er. AORTA AND VESSELS: No aneurysm. No dissection. Renal arteries, SMA, celiac without stenosis. RETROPERITONEUM: Portacaval space lymph node on today's study 2.6 x 1.1 cm image 25 (was 4.7 x 2.9 cm in size 02/12/2018). BOWEL AND PERITONEAL CAVITY: No oral contrast. No masses or inflammatory changes. No free fluid or p eritoneal masses. APPENDIX: Normal. ABDOMINAL WALL: No masses. No hernias. PELVIS: No mass or free fluid. Normal bladder. BONES: Multiple new sclerotic lesions throughout the sacrum pelvis and lumbar spine from treated meta static disease. OTHER: No other significant finding. IMPRESSION: Decrease in size of mediastinal and left hilar masses/adenopathy. Persistent postobstru ctive consolidation and collapse left lower lobe. Stable moderate pericardial effusion Decrease in size of portacaval space lymph node. Liver metastatic lesions no longer identified New no multiple foci of sclerosis throughout the thoracic and lumbar spine, sacrum and bony pelvis aidan medina treatment effect for metastatic bony lesions. TECHNICAL DOCUMENTATION: JOB ID: [id number] Quality ID # [id number]: Final reports with documentation of one or more dose reduction techniques (e.g., Au tomated exposure control, adjustment of the mA and/or kV according to patient size, use of iterative reconstruction technique) 2010 [employer]- All Rights Reserved Reading location - IP/workstation name: [facility]
== END ==
LOC: RAD 09:09
PROVIDERS: ATTEND Internal Medicine
DX: C34.2 Malignant neoplasm of middle lobe, bronchus or lung (principal); I31.3 Pericardial effusion (noninflammatory)
CPT/HCPCS: 71260; 74177

== ENCOUNTER → 2018-04-15 | Outpatient (CLI) | payer MEDICAID ==
--- NOTE | 2018-04-16 09:49 | RADIOLOGY REPORT (SQ) ---
EXAM DESCRIPTION: MRI LUMBAR SPINE COMBO COMPLETED DATE/TIME: 04/15/2018 5:14 pm REASON FOR STUDY: MALIGNANT NEOPLASM OF MIDDLE LOBE, BRONCHUS OR LUNG C34.2 MALIGNANT NEOPLASM OF M IDDLE LOBE, BRONCHUS OR LUNG COMPARISON: CT chest abdomen pelvis 03/24/2018, 02/12/2018 Bone scan 02/17/2018 TECHNIQUE: Sagittal and Axial imaging includes T1, T1 post gadolinium, T2, STIR and gradient echo se quences. Coronal T2/HASTE imaging. CONTRAST TYPE AND DOSE: 20 mL Dotarem. RENAL FUNCTION: GFR > 60. LIMITATIONS: None. FINDINGS: VISUALIZED UPPER ABDOMEN: Limited evaluation. No acute or suspicious findings suggested. SEGMENTATION: No transitional anatomy. The lowest well-developed disc space is labeled L5-S1. ALIGNMENT: Anatomic. VERTEBRAE: Central upper endplate depression at L3 with adjacent contrast enhancement from Schmorl's node. No wedge compression deformities BONE MARROW: Diffusely heterogeneous bone marrow an enhancing metastatic lesions throughout the visua lized lumbar spine and bony pelvis. No bulky epidural tumor DISC SIGNAL: Diffuse decreased T2 weighted intervertebral discs POSTERIOR ELEMENTS: Generally intact. No pars defect evident. HARDWARE: None in the spine. CORD AND CONUS: Normal in size and signal intensity. Conus at the L1-2 level. SOFT TISSUES: No aortic aneurysm seen. No bulky retroperitoneal adenopathy or mass. No paraspinal mas s or fluid. T11-12: At the upper edge of the field of view. Mild diffuse posterior disc bulging and bony set hy pertrophy cause borderline central canal narrowing and mild bilateral foraminal narrowing. T12-L1: Unremarkable L1-L2: Unremarkable L2-L3: Unremarkable L3-L4: No central or foraminal encroachment. No significant posterior disc bulging. Mild bilateral facet arthropathy L4-L5: No significant central or foraminal encroachment. Mild diffuse posterior disc bulging is pres ent without central stenosis. No right foraminal narrowing. Very mild left foraminal narrowing. L5-S1: Asymmetric facet hypertrophy and rightward disc bulge causes moderate right L5-S1 foraminal na rrowing. No central canal narrowing or left foraminal stenosis. SACRUM: Multiple bony metastatic lesions ENHANCEMENT: No abnormal conus or nerve root enhancement. OTHER: No other significant findings. IMPRESSION: Diffuse bony metastatic disease without wedge compression deformity or bulky epidural tu mor. Asymmetric moderate right foraminal narrowing at L5-S1 from facet hypertrophy and asymmetric rightwar d disc bulge TECHNICAL DOCUMENTATION: JOB ID: [id number] [employer]- All Rights Reserved Reading location - IP/workstation name: [email or web address]
== END ==
LOC: RAD 15:05
PROVIDERS: ATTEND Physician Assistant Medical
DX: C34.2 Malignant neoplasm of middle lobe, bronchus or lung (principal); C79.51 Secondary malignant neoplasm of bone; M48.07 Spinal stenosis, lumbosacral region
CPT/HCPCS: 72158

== ENCOUNTER → 2018-04-23 | Outpatient (CLI) | payer MEDICAID ==
--- NOTE | 2018-04-23 16:52 | RADIOLOGY REPORT (SQ) ---
EXAM DESCRIPTION: HIP RIGHT AP/LATERAL COMPLETED DATE/TIME: 04/23/2018 4:41 pm REASON FOR STUDY: PAIN ; C34.2 C34.2 MALIGNANT NEOPLASM OF MIDDLE LOBE, BRONCHUS OR LUNG COMPARISON: None. NUMBER OF VIEWS: Two views. TECHNIQUE: AP pelvis and additional frog-leg view of the right hip. LIMITATIONS: None. FINDINGS: MINERALIZATION: Normal. RIGHT HIP: No fracture or dislocation. No worrisome bone lesions. LEFT HIP: No fracture or dislocation. No worrisome bone lesions. PUBIS AND ISCHIUM: No fracture. PELVIS: No fracture. SACRUM: No fracture or dislocation. No worrisome bone lesions. LOWER LUMBAR SPINE: No fracture or dislocation. No worrisome bone lesions. No significant disc disea se. SOFT TISSUES: No findings. OTHER: No other significant finding. IMPRESSION: NEGATIVE STUDY OF THE RIGHT HIP. NO RADIOGRAPHIC EVIDENCE OF ACUTE INJURY. TECHNICAL DOCUMENTATION: JOB ID: [id number] [employer]- All Rights Reserved Reading location - IP/workstation name: [email or web address]
== END ==
LOC: RAD 16:24
PROVIDERS: ATTEND Internal Medicine
DX: C34.2 Malignant neoplasm of middle lobe, bronchus or lung (principal)

== ENCOUNTER 2018-05-12 06:20 | Day surgery (SDC) | payer MEDICAID ==
[~2018-05-12 06:20] MED LIST changes: +CEFAZOLIN 1 GM/D5W RTU 1 GM/50 ML RTUPB IV PRN; -CIPROFLOXACIN 400 MG/D5W RTU 400 MG/200 ML RTUPB IV PRN; +DEXTROSE 5%-1/2 NORMAL SALINE 1,000 ML IV PRN; +DIAZEPAM 5 MG TABLET PO PRN; -LACTATED RINGERS 1000 ML IV PRN; -LIDOCAINE 0.5% INJ-PF (5 MG/ML) 50 ML SDV SUBCUT PRN; +OXYCODONE-ACETAMINOPHEN 5-325 MG TABLET PO PRN
[2018-05-12] MEDS ORDERED: DIAZEPAM 5 MG TABLET ONE (07:07)
[2018-05-12] MEDS ORDERED: OXYCODONE-ACETAMINOPHEN 5-325 MG TABLET ONE (07:07)
[2018-05-12] MEDS ORDERED: CEFAZOLIN 1 GM/D5W RTU 0 GM/0 ML RTUPB IV ONE (07:08)
--- NOTE | 2018-05-12 07:08 | RADIOLOGY REPORT (SQ) ---
EXAM DESCRIPTION: XR CHEST 1 VIEW COMPLETED DATE/TME: 05/12/2018 00:00 CLINICAL HISTORY: 47 years, Female, surgery COMPARISON: None. NUMBER OF VIEWS: One TECHNIQUE: AP view of the chest LIMITATIONS: None. FINDINGS: There is left lung volume loss with leftward mediastinal shift. There is a left basilar airspace opacity. A left pleural effusion may be present. The heart is enlarged. There is no pneumothorax. IMPRESSION: Left lung volume loss with leftward mediastinal shift. Left basilar airspace opacity with possible left pleural effusion 2010 [facility] [employer]- All Rights Reserved
[2018-05-12] MEDS ORDERED: LIDOCAINE 0.5% INJ-PF (5 MG/ML) 50 ML SDV ONE (07:39)
[2018-05-12] MEDS ORDERED: FENTANYL CITRATE INJ/PF 100 MCG/2 ML AMPUL ONE (07:44)
[2018-05-12] MEDS ORDERED: MIDAZOLAM 2 MG/2 ML INJ ONE (07:44)
[2018-05-12] MEDS ORDERED: BACITRACIN INJ 50,000 UNIT VIAL ONE (07:45)
[2018-05-12 07:51] LABS: ANION GAP 8 (5-19); BLOOD UREA NITROGEN 6 mg/dL (7-20); CALCIUM 8.7 mg/dL (8.4-10.2); CARBON DIOXIDE 36 mmol/L (22-30); CHLORIDE 94 mmol/L (98-107); GLUCOSE 116 mg/dL (75-110); POTASSIUM 3.4 mmol/L (3.6-5.0); SODIUM 137.5 mmol/L (137-145)
[2018-05-12] MEDS ORDERED: CLINDAMYCIN 600 MG/D5W RTU 600 MG/50 ML RTUPB IV PRN (07:54)
[2018-05-12] MEDS ORDERED: CLINDAMYCIN 600 MG/D5W RTU 600 MG/50 ML RTUPB IV ONE (07:58)
[2018-05-12 08:18] LABS: HEMOGLOBIN 10.6 g/dL (12.0-15.5); MEAN CORPUSCULAR HEMOGLOBIN 30.8 pg (27.0-33.4); MEAN CORPUSCULAR HGB CONC 35.5 g/dL (32.0-36.0); MEAN CORPUSCULAR VOLUME 87 fl (80-97); RED BLOOD COUNT 3.45 10^6/uL (3.72-5.28); RED CELL DISTRIBUTION WIDTH 20.4 % (11.5-14.0); WHITE BLOOD COUNT 3.2 10^3/uL (4.0-10.5)
[2018-05-12] MEDS ORDERED: DEXTROSE 5%-WATER 500 ML IV ONE (08:30)
[2018-05-12 08:34] LABS: PLATELET COUNT 49 10^3/uL (150-450)
--- NOTE | 2018-05-12 10:26 | Discharge Summary ---
Discharge Summary (SDC) - Discharge Final Diagnosis: Lung cancer Prediabetes. Date of Surgery: 05/12/18 Discharge Date: 05/12/18 Condition: Fair Treatment or Instructions: Discharge home [after recovery per ASU criteria]. Diet,as tolerated, when fully awake advance as tolerated. Activities within moderation encouraged. Follow up in my office by appointment in about [1 week]. Call for appointment. Leave wounds [covered], [keep clean and dry, until office visit in 1 week]. Hold of on school/work [until evaluation in office]. Meds per med rec. May shower [in 48 hrs], [try to keep operated area as dry as possible]. Prescriptions: Oxycodone HCl/Acetaminophen [Percocet 5-325 mg Tablet] 1 tab PO ASDIR PRN #15 tab PRN Reason: Referrals: IRON LEON MD [Primary Care Provider] - Discharge Diet: As Tolerated Respiratory Treatments at Home: Deep Breathing/Coughing Discharge Activity: Activity As Tolerated Report the Following to Your Physician Immediately: Shortness of Breath, Unusual Bleeding
--- NOTE | 2018-05-12 10:28 | Operative Report ---
Operative Report DATE OF SURGERY: 05/12/18 PREOPERATIVE DIAGNOSIS: Lung cancer. Prediabetes. POSTOPERATIVE DIAGNOSIS: Lung cancer. Prediabetes. OPERATION: 1. Ultrasound evaluation of the right internal jugular vein and real time access. 2. Insertion of Port-A-Cath via real time ultrasound-guided access in the right internal jugular vein. 3. Angiogram and interpretation. SURGEON: CORINNE KENNEY OFFBEARER SEWER PIPE: None.. ANESTHESIA: Moderate Sedation TISSUE REMOVED OR ALTERED: Not applicable. COMPLICATIONS: None. ESTIMATED BLOOD LOSS: 5 mL. INTRAOPERATIVE FINDINGS: Satisfactory and safe access into the right internal jugular vein. About 2 cm diameter. Satisfactory position with the tip just down in the right atrium. Angiogram demonstrates flow through the superior vena cava and right atrium. Easy egress of blood and ingress of heparinized solution. PROCEDURE: After obtaining informed consent, the patient was taken to the [employer] and positioned supine. The [right] neck and chest were prepared with chlorhexidine and draped out with sterile linen. After the " universal timeout", in which it was verified that the patient continued to receive antibiotic, the procedure commenced. A steriley sheathed ultrasound probe was used to evaluate the [ right] internal jugular vein. Local anesthesia was infiltrated adjacent to the probe. Access into the [right] internal jugular vein was obtained using a micropuncture needle, followed by micropuncture wire and then a micropuncture catheter. This was followed by introduction of a 0.035 guidewire the tip of which was placed down into the inferior vena cava . The port sites was marked , locally anesthetized and incision made. Dissection now proceeded to the deep subcutaneous subcutaneous tissues so that a pocket for the port was made. Meticulous hemostasis was secured and the catheter was tunneled between the 2 incisions. Proximally, the catheter was now positioned using a peel-away sheath. Distally the catheter was tailored to an appropriate length and then mated to the port using the contained fixating device. The port was now placed in the pocket and the catheter optimally positioned. The port was accessed with a Ervin needle and an angiogram done under digital subtraction. The findings as dictated. With adequate and satisfactory positioning, both lumens of the chamber were irrigated with heparinized solution. The wounds were now closed using interrupted 3-0 PDS to the subcutaneous tissues and a continuous subcuticular suture of 4-0 Monocryl to the skin. These are reinforced with Steri-Strips over benzoin and then dressings applied. Copies of the dictated operative report for Dr. Corinne Villanueva MD.
[2018-05-12 11:15] VITALS: BP 99/57
--- NOTE | 2018-05-12 13:48 | RADIOLOGY REPORT (SQ) ---
EXAM DESCRIPTION: PORTACATH INSERTION COMPLETED DATE/TIME: 05/12/2018 10:02 am REASON FOR STUDY: C34.2 C34.2 MALIGNANT NEOPLASM OF MIDDLE LOBE, BRONCHUS OR LUNG COMPARISON: None. FLUOROSCOPY TIME: 2.5 minute. 13 images saved to PACS. TECHNIQUE: Intra-operative images acquired during surgical procedure to evaluate progress. NUMBER OF IMAGES: 13 images. LIMITATIONS: None. FINDINGS: Images of the chest acquired during catheter placement. IMPRESSION: IMAGE(S) OBTAINED DURING PROCEDURE. COMMENT: Quality ID [id number]: Final reports for procedures using fluoroscopy that document radiation exp osure indices, or exposure time and number of fluorographic images (if radiation exposure indices are not available) Please consult full operative report of the attending physician for description of the procedure. TECHNICAL DOCUMENTATION: JOB ID: [id number] [employer]- All Rights Reserved Reading location - IP/workstation name: [email or web address]
== END 2018-05-12 11:25 | disposition home or self-care (01) ==
LOC: CCL 06:20
PROVIDERS: ATTEND Surgery
DX: C34.2 Malignant neoplasm of middle lobe, bronchus or lung (principal); R73.03 Prediabetes; Z86.79 Personal history of other diseases of the circulatory system; F32.9 Major depressive disorder, single episode, unspecified; F41.9 Anxiety disorder, unspecified; R01.1 Cardiac murmur, unspecified; E03.9 Hypothyroidism, unspecified; M19.90 Unspecified osteoarthritis, unspecified site; F17.210 Nicotine dependence, cigarettes, uncomplicated; Z86.010 Personal history of colon polyps; Z86.73 Personal history of transient ischemic attack (TIA), and cerebral infarction without residual deficits; Z80.0 Family history of malignant neoplasm of digestive organs; Z79.899 Other long term (current) drug therapy; Z01.818 Encounter for other preprocedural examination
CPT/HCPCS: 36415; 85027; 80048; 36561; 76937; 77001; 71045; C1752; C1788; C1769; Q9967; J2250; S0077; J3490 ×2; J3010; J1644; J0690

== ENCOUNTER → 2018-06-17 | Outpatient (CLI) | payer MEDICAID ==
--- NOTE | 2018-06-17 11:07 | RADIOLOGY REPORT (SQ) ---
EXAM DESCRIPTION: MRI HEAD COMBO COMPLETED DATE/TIME: 06/17/2018 9:37 am REASON FOR STUDY: LUNG CA (C34.2) C34.2 MALIGNANT NEOPLASM OF MIDDLE LOBE, BRONCHUS OR LUNG COMPARISON: MRI brain 02/13/2018 CT sinuses 09/20/2016 TECHNIQUE: Multiplanar imaging includes noncontrasted T1, T2, FLAIR, diffusion with ADC map and post gadolinium contrast T1 sequences. Images stored on PACS. CONTRAST TYPE AND DOSE: 20 mL Dotarem. RENAL FUNCTION: GFR > 60. LIMITATIONS: None. FINDINGS: ANATOMY: No developmental anomalies. Normal vascular flow voids. Pituitary fossa normal. CSF SPACES: Normal in size and contour. No hemorrhage. CEREBRUM: No MRI evidence of brain parenchymal leptomeningeal/dural metastatic disease. No MR eviden ce of acute ischemic change, acute intracranial hemorrhage, mass effect, or midline shift. Diffusion-weighted images are negative. There is old small vessel white matter disease in the left posterior frontal and right frontal perisy lvian region is unchanged from studies dating back to 2017. POSTERIOR FOSSA: No signal alteration. No hemorrhage. No edema, masses, or mass effect. Internal lew tory canals, cerebellopontine angles, mastoids normal. No enhancing lesions. No abnormal enhancement post contrast. DIFFUSION IMAGING: Negative for acute or subacute infarction. ORBITS: No masses. Globes normal. PARANASAL SINUSES: No fluid levels. Mucosa normal. OTHER: No other significant finding. IMPRESSION: No MRI evidence of brain parenchymal metastatic disease given history of lung cancer. Spotty chronic bifrontal white matter disease unchanged from studies dating back to 2017 EVIDENCE OF ACUTE STROKE: NO. TECHNICAL DOCUMENTATION: JOB ID: [id number] [email or web address]- All Rights Reserved Reading location - IP/workstation name: [facility]
== END ==
LOC: RAD 08:26
PROVIDERS: ATTEND Internal Medicine
DX: C34.2 Malignant neoplasm of middle lobe, bronchus or lung (principal)
CPT/HCPCS: 70553; A9576

== ENCOUNTER 2018-08-03 12:33 | Emergency (ER) | payer MEDICAID ==
[2018-08-03] MEDS ORDERED: LIDOCAINE 4% TRANSPARENT DRESSING 5 GM KIT TP ONE (12:46)
--- NOTE | 2018-08-03 13:01 | ER Document Report ---
ED Medical Screen (RME) - General Chief Complaint: Shortness Of Breath Stated Complaint: SHORTNESS OF BREATH Time Seen by Provider: 08/03/18 12:44 Mode of Arrival: Wheelchair Information source: Patient, Relative TRAVEL OUTSIDE OF THE [place] IN LAST 30 DAYS: No - HPI Patient complains to provider of: sob Onset: This morning - pt with h/o metastatic lung ca with onset of SOB this am - Related Data Allergies/Adverse Reactions: latex [Latex] Allergy (Severe, Verified 01/13/18 18:33) Generalized Itching progesterone [Progesterone] Allergy (Severe, Verified 01/13/18 18:33) Chest pain Sulfa (Sulfonamide Antibiotics) Allergy (Severe, Verified 01/13/18 18:33) Hives Penicillins Allergy (Intermediate, Verified 01/13/18 18:33) Hives Past Medical History - Social History Chew tobacco use (# tins/day): No Frequency of alcohol use: None Drug Abuse: None - Past Medical History Cardiac Medical History: Denies: Hx Coronary Artery Disease, Hx Heart Attack, Hx Hypertension Pulmonary Medical History: Reports: Hx Pneumonia Denies: Hx Asthma, Hx Bronchitis, Hx COPD Neurological Medical History: Denies: Hx Cerebrovascular Accident, Hx Seizures Renal/ Medical History: Denies: Hx Peritoneal Dialysis Musculoskeltal Medical History: Reports Hx Arthritis Past Surgical History: Reports: Hx Section, Hx Cholecystectomy, Hx Tonsillectomy, Hx Tubal Ligation - Immunizations Hx Diphtheria, Pertussis, Tetanus Vaccination: No - unsure History of Influenza Vaccine for 04/2017 - 09/2017 Season: Unknown Physical Exam - Vital signs Vitals: Temp Pulse Resp BP Pulse Ox 99.6 F 140 H 20 95/61 L 90 L 08/03/18 12:40 08/03/18 12:40 08/03/18 12:40 08/03/18 12:40 08/03/18 12:40 Course - Vital Signs Vital signs: Temp Pulse Resp BP Pulse Ox 99.6 F 140 H 20 95/61 L 90 L 08/03/18 12:40 08/03/18 12:40 08/03/18 12:40 08/03/18 12:40 08/03/18 12:40 Doctor's Discharge - Discharge Referrals: JASMIN BATISTA MD [Primary Care Provider] - Follow up as needed
--- NOTE | 2018-08-03 13:31 | ER Document Report ---
ED Respiratory Problem - General Mode of Arrival: Wheelchair Information source: Patient TRAVEL OUTSIDE OF THE [place] IN LAST 30 DAYS: No <NEIL BONILLA - Last Filed: 08/03/18 19:56> <GRAEME BAINS - Last Filed: 08/03/18 19:58> - General Chief Complaint: Shortness Of Breath Stated Complaint: SHORTNESS OF BREATH Time Seen by Provider: 08/03/18 12:44 Notes: 47-year-old female with stage IV lung cancer who presents to the emergency department today with complaints of shortness of breath with an associated cough and fever. Patient last had chemotherapy 3 days ago. Patient states this is not a normal reaction for her after chemotherapy. Patient states that this morning around 0300 she had a fever of 101.8 and had generalized body aches. Patient denies a history of having CHF. (NEIL BONILLA) - Related Data Allergies/Adverse Reactions: latex [Latex] Allergy (Severe, Verified 01/13/18 18:33) Generalized Itching progesterone [Progesterone] Allergy (Severe, Verified 01/13/18 18:33) Chest pain Sulfa (Sulfonamide Antibiotics) Allergy (Severe, Verified 01/13/18 18:33) Hives Penicillins Allergy (Intermediate, Verified 01/13/18 18:33) Hives Past Medical History - General Information source: Patient, Relative - Social History Smoking Status: Former Smoker Chew tobacco use (# tins/day): No Frequency of alcohol use: None Drug Abuse: None Lives with: Family Family History: Reviewed & Not Pertinent Patient has suicidal ideation: No Patient has homicidal ideation: No Pulmonary Medical History: Reports: Hx Pneumonia Musculoskeletal Medical History: Reports Hx Arthritis Past Surgical History: Reports: Hx Section, Hx Cholecystectomy, Hx Tonsillectomy, Hx Tubal Ligation - Immunizations Hx Diphtheria, Pertussis, Tetanus Vaccination: No - unsure Hx Pneumococcal Vaccination: 05/15/11 <NEIL BONILLA - Last Filed: 08/03/18 19:56> Review of Systems - Review of Systems Constitutional: See HPI, Fever - 101.8 priot to arrival EENT: No symptoms reported Cardiovascular: No symptoms reported Respiratory: See HPI, Cough, Short of breath Gastrointestinal: No symptoms reported Genitourinary: No symptoms reported Female Genitourinary: No symptoms reported Musculoskeletal: See HPI, Muscle pain Skin: No symptoms reported Hematologic/Lymphatic: No symptoms reported Neurological/Psychological: No symptoms reported -: Yes All other systems reviewed and negative <NEIL BONILLA - Last Filed: 08/03/18 19:56> Physical Exam <NEIL BONILLA - Last Filed: 08/03/18 19:56> - Vital signs Vitals: Temp Pulse Resp BP Pulse Ox 99.6 F 140 H 20 95/61 L 90 L 08/03/18 12:40 08/03/18 12:40 08/03/18 12:40 08/03/18 12:40 08/03/18 12:40 - Notes Notes: PHYSICAL EXAM GENERAL: Alert, interacts well. Appears uncomfortable. HEAD: Normocephalic, atraumatic. EYES: Pupils equal, round, and reactive to light. Extraocular movements intact. ENT: Oral mucosa moist, tongue midline. NECK: Full range of motion. Supple. Trachea midline. LUNGS: Inspiratory crackles in the left upper lobe. No wheezing. Tachypneic but does not appear to be in any respiratory distress. HEART: Tachycardic, regular rhythm. No murmurs, gallops, or rubs. ABDOMEN: Soft, non-tender. Non-distended. Bowel sounds present in all 4 quadr ants. No guarding, rigidity, or rebound. EXTREMITIES: Moves all 4 extremities spontaneously. No edema, radial and dorsalis pedis pulses 2/4 bilaterally. No cyanosis. NEUROLOGICAL: Alert and oriented x3. Normal speech. PSYCH: Normal affect, normal mood. SKIN: Warm, dry, normal turgor. No rashes or lesions noted. (NEIL BONILLA) Course - Laboratory Result Diagrams: 08/03/18 13:38 08/03/18 13:38 <NEIL BONILLA - Last Filed: 08/03/18 19:56> - Laboratory Result Diagrams: 08/03/18 13:38 08/03/18 13:38 <GRAEME BAINS - Last Filed: 08/03/18 19:58> - Re-evaluation Re-evalutation: 08/03/18 19:05 CBC shows low platelets of 109 otherwise unremarkable, d-dimer is elevated at 3.92, venous blood gas grossly unremarkable, CMP shows slight low sodium 135.5, AST and ALT are mildly elevated, initial troponin is normal at 0.040 and then decreased 4 hours later at 0.028, urinalysis shows small blood and small bilirubin but no evidence of infection. Flu A and B swabs are negative. Blood cultures and urine cultures were sent on this immunosuppressed patient. Chest x-ray shows stable appearance with chronic volume loss on the left but no acute radiographic findings in the chest. CT angiogram was ordered based off of her tachycardia, shortness of breath, increased oxygen requirement and positive d- dimer, CT scan shows increasing left perihilar soft tissue opacities, at electasis in the left lower lobe with obstructing endobronchial lesion in the hilar level and increasing atelectasis along the left major fissure in the left upper lobe, mild interstitial prominence noted throughout both lungs, no pneumothorax, no significant effusion, moderate pericardial effusion which is diminished compared to prior study, no evidence of PE. Scattered blastic metastatic lesions. No immediately treatable condition at this point, patient does have oxygen at home, patient is much more comfortable on 4 L via nasal cannula then she was on her Elle. Patient has not been hypotensive at all while she has been here. Discussed the case with Dr. Ty and with the patient. Dr. Braswell recommends treating what is likely increased swelling in the masses from the T-cell activat or that he has been using with Solu-Medrol and a home Medrol Dosepak. Dr. Bhumi reyna and I and the patient are all in agreement that admission to the hospital at this time does significantly increase her risk of a hospital-acquired infection since she is so dramatically immunosuppressed. I do not find any source for infection at this time, patient will be discharged to home, cultures are pending and she will return should she feel worse at any point. (GRAEME BAINS) - Vital Signs Vital signs: Temp Pulse Resp BP Pulse Ox 99.0 F 140 H 23 H 129/67 H 93 08/03/18 19:01 08/03/18 12:40 08/03/18 19:01 08/03/18 19:00 08/03/18 19:01 - Laboratory Laboratory results interpreted by me: 08/03/18 08/03/18 08/03/18 13:38 13:38 13:38 RDW 18.2 H Plt Count 109 L Lymphocytes % 12.8 L APTT 41.7 H D-Dimer 3.92 H VBG HCO3 Sodium 135.5 L Chloride 96 L Carbon Dioxide 33 H Glucose 157 H AST 79 H ALT 60 H Urine Protein Urine Blood Urine Bilirubin Urine Urobilinogen 08/03/18 08/03/18 14:27 14:40 RDW Plt Count Lymphocytes % APTT D-Dimer VBG HCO3 32.8 H Sodium Chloride Carbon Dioxide Glucose AST ALT Urine Protein 100 H Urine Blood SMALL H Urine Bilirubin SMALL H Urine Urobilinogen 2.0 H Discharge <NEIL BONILLA - Last Filed: 08/03/18 19:56> <GRAEME BAINS - Last Filed: 08/03/18 19:58> - Discharge Clinical Impression: Lung cancer Qualifiers: Laterality: unspecified laterality Lung location: unspecified part of lung Qualified Code(s): C34.90 - Malignant neoplasm of unspecified part of unspecified bronchus or lung Condition: Fair Disposition: HOME, SELF-CARE Additional Instructions: Your CAT scan showed some increasing swelling in the areas of cancer in your lungs. This is suspected to be a result of all the T cells going to the area. This will likely improve with the steroid that we gave you here in the ED and you are being discharged to home with a prescription for steroids as well. If you start feeling worse, require more oxygen than the 4-5 L that she were wearing in the emergency department or develop any new or concerning symptoms please return to the emergency department immediately. Otherwise please keep your follow-up appointment with Dr. Ty. Prescriptions: Methylprednisolone [Medrol Dosepack (4 mg/Tab) 21 Tab/Dosepak] 4 mg PO ASDIR PRN #[id number] tab.ds.[id number] PRN Reason: Referrals: JASMIN TY MD [Primary Care Provider] - Follow up as needed Scribe Attestation: 08/03/18 19:57 I personally performed the services described in the documentation, reviewed and edited the documentation which was dictated to the scribe in my presence, and it accurately records my words and actions. (GRAEME BAINS) Scribe Documentation - Scribe Written by Scribe:: Eduard Craig, 08/03/2018 193 acting as scribe for :: Nohelia <NEIL BONILLA - Last Filed: 08/03/18 19:56>
[2018-08-03 13:59] LABS: ABSOLUTE EOSINOPHILS # (AUTO) 0.1 10^3/uL (0.0-0.6); ABSOLUTE LYMPHOCYTES (AUTO) 0.7 10^3/uL (0.5-4.7); ABSOLUTE MONOCYTES (AUTO) 0.4 10^3/uL (0.1-1.4); ABSOLUTE NEUT (AUTO) 4.5 10^3/uL (1.7-8.2); BASOPHILS % (AUTO) 0.6 % (0-2); EOSINOPHILS % (AUTO) 2.4 % (0-6); HEMATOCRIT 39.5 % (36.0-47.0); HEMOGLOBIN 13.3 g/dL (12.0-15.5); LYMPHOCYTES % (AUTO) 12.8 % (13-45); MEAN CORPUSCULAR HEMOGLOBIN 30.9 pg (27.0-33.4); MEAN CORPUSCULAR HGB CONC 33.8 g/dL (32.0-36.0); MEAN CORPUSCULAR VOLUME 92 fl (80-97); MONOCYTES % (AUTO) 7.6 % (3-13); PLATELET COUNT 109 10^3/uL (150-450); RED BLOOD COUNT 4.32 10^6/uL (3.72-5.28); RED CELL DISTRIBUTION WIDTH 18.2 % (11.5-14.0); SEGMENTED NEUTROPHILS % (AUTO) 76.6 % (42-78); TOTAL CELLS COUNTED % (AUTO) 100 %; WHITE BLOOD COUNT 5.8 10^3/uL (4.0-10.5)
[2018-08-03 14:05] LABS: INTERNATIONAL RATION (INR) 0.96; PROTHROMBIN TIME 13.3 SEC (11.4-15.4)
[2018-08-03 14:06] LABS: PARTIAL THROMBOPLASTIN TIME 41.7 SEC (23.5-35.8)
[2018-08-03 14:08] LABS: D-DIMER 3.92 ug/mL (0.00-0.50)
--- NOTE | 2018-08-03 14:08 | RADIOLOGY REPORT (SQ) ---
EXAM DESCRIPTION: CHEST SINGLE VIEW COMPLETED DATE/TIME: 08/03/2018 1:59 pm REASON FOR STUDY: cancer, SOB, hypoxia COMPARISON: 05/12/2018. EXAM PARAMETERS: NUMBER OF VIEWS: One view. TECHNIQUE: Single frontal radiographic view of the chest acquired. RADIATION DOSE: NA LIMITATIONS: None. FINDINGS: LUNGS AND PLEURA: Chronic volume loss on the left. No opacities, masses or pneumothorax. No pleural effusion. MEDIASTINUM AND HILAR STRUCTURES: No masses. Contour normal. HEART AND VASCULAR STRUCTURES: Heart normal in size. Normal vasculature. BONES: No acute findings. HARDWARE: Vascular port. OTHER: No other significant finding. IMPRESSION: STABLE APPEARANCE. CHRONIC VOLUME LOSS ON THE LEFT. NO ACUTE RADIOGRAPHIC FINDING IN T HE CHEST. TECHNICAL DOCUMENTATION: JOB ID: [id number] [employer]- All Rights Reserved Reading location - IP/workstation name: [email or web address]
[2018-08-03 14:21] LABS: ALANINE AMINOTRANSFERASE 60 U/L (9-52); ALBUMIN 3.8 g/dL (3.5-5.0); ALKALINE PHOSPHATASE 125 U/L (38-126); ANION GAP 7 (5-19); ASPARTATE AMINO TRANSFERASE 79 U/L (14-36); BILIRUBIN,DIRECT 0.3 mg/dL (0.0-0.4); BILIRUBIN,TOTAL 0.7 mg/dL (0.2-1.3); BLOOD UREA NITROGEN 11 mg/dL (7-20); CALCIUM 8.4 mg/dL (8.4-10.2); CARBON DIOXIDE 33 mmol/L (22-30); CHLORIDE 96 mmol/L (98-107); GLUCOSE 157 mg/dL (75-110); POTASSIUM 3.9 mmol/L (3.6-5.0); SODIUM 135.5 mmol/L (137-145); TOTAL PROTEIN 6.6 g/dL (6.3-8.2)
[2018-08-03 14:28] LABS: A TYPE INFLUENZA AG NEGATIVE (NEGATIVE); B INFLUENZA AG NEGATIVE (NEGATIVE)
[2018-08-03 15:00] LABS: APPEARANCE,URINE SLIGHTLY-CLOUDY; BILIRUBIN,URINE SMALL (NEGATIVE); COLOR,URINE AMBER; GLUCOSE, URINE NEGATIVE (NEGATIVE); KETONES,URINE NEGATIVE (NEGATIVE); LEUKOCYTE ESTERASE,URINE NEGATIVE (NEGATIVE); NITRITE,URINE NEGATIVE (NEGATIVE); PROTEIN,URINE 100 mg/dL (NEGATIVE); URINE SPECIFIC GRAVITY 1.028
[2018-08-03] MEDS ORDERED: ACETAMINOPHEN 325 MG TABLET PO ONE (15:06)
[2018-08-03 15:09] LABS: VENOUS BLOOD BASE EXCESS 6.2 mmol/L; VENOUS BLOOD HCO3 32.8 mmol/L (20-32); VENOUS BLOOD PCO2 55.5 mmHg (35-63); VENOUS BLOOD PH 7.39 (7.30-7.42)
[2018-08-03] MEDS ORDERED: OXYCODONE HCL SR 10 MG TABLET PO ONE (16:51)
--- NOTE | 2018-08-03 17:01 | RADIOLOGY REPORT (SQ) ---
EXAM DESCRIPTION: CTA CHEST COMPLETED DATE/TIME: 08/03/2018 3:58 pm REASON FOR STUDY: hypoxia, lung cancer, SOB, r/o PE COMPARISON: 05/15/2018 TECHNIQUE: CT scan of the chest performed using helical scanning technique with dynamic intravenous contrast injection. Images reviewed with lung, soft tissue and bone windows. Reconstructed coronal and sagittal MPR images reviewed. Additional 3 dimensional post-processing performed to develop Maximal Intensity Projection images (MO P). All images stored on PACS. All CT scanners at this facility use dose modulation, iterative reconstruction, and/or weight based d osing when appropriate to reduce radiation dose to as low as reasonably achievable (ALARA). [facility]: Dose Right [facility]: CareDose [facility]: Dose Right [facility]: Teradose 4D [facility]: Synoste Oy CONTRAST TYPE AND DOSE: contrast/concentration: Isovue 350.00 mg/ml; Total Contrast Delivered: 81.0 ml; Total Saline Delivered: 80.0 ml Contrast bolus optimized for the pulmonary arteries. Not diagnostic for the aorta. RENAL FUNCTION: GFR > 60. RADIATION DOSE: CT Rad equipment meets quality standard of care and radiation dose reduction techniq ues were employed. CTDIvol: 24.8 - 28.3 mGy. DLP: 1032 mGy-cm. . LIMITATIONS: None. FINDINGS: LUNGS AND PLEURA: Increasing left parahilar soft tissue opacities. Atelectasis in the lef t lower lobe with obstructing endobronchial lesion in the hilar level. Increasing atelectasis along the left major fissure in the left upper lobe. Mild interstitial prominence is noted throughout both lungs. No pneumothorax. No significant effusion. AORTA AND GREAT VESSELS: No aneurysm. Contrast bolus not optimized for the aorta. HEART: Moderate pericardial effusion, though diminished compared with the prior study. . No signific ant coronary artery calcifications. PULMONARY ARTERIES: No emboli visualized in the main pulmonary arteries or the segmental branches. HILAR AND MEDIASTINAL STRUCTURES: No identified masses or abnormal nodes. HARDWARE: right chest port. UPPER ABDOMEN: Small upper retroperitoneal lymph nodes. . Limited exam. THYROID AND OTHER SOFT TISSUES: No masses. No adenopathy. BONES: Scattered blastic metastatic lesions. 3D MIPS: Confirm above findings. OTHER: No other significant finding. IMPRESSION: No emboli visualized in the main pulmonary arteries or the segmental branches. Increasing left parahilar soft tissue opacities. Atelectasis in the left lower lobe with obstructing endobronchial lesion in the hilar level. Increasing atelectasis along the left major fissure in the left upper lobe. Mild interstitial prominence is noted throughout both lungs. No pneumothorax. No s ignificant pleural effusion. Moderate pericardial effusion, though diminished compared with the prior study. Scattered blastic me tastatic lesions. COMMENT: Quality ID # [id number]: Final reports with documentation of one or more dose reduction techniques (e.g., Automated exposure control, adjustment of the mA and/or kV according to patient size, use of iterative reconstruction technique) TECHNICAL DOCUMENTATION: JOB ID: [id number] [place]-72 2010 [employer]- All Rights Reserved Reading location - IP/workstation name: [email or web address]
[2018-08-03] MEDS ORDERED: METHYLPREDNISOLONE INJ 40 MG/1 ML SDV IV ONE (17:28)
[2018-08-03 19:45] VITALS: BP 129/67
== END 2018-08-03 20:09 | disposition home or self-care (01) ==
LOC: ER 12:33
DX: C34.90 Malignant neoplasm of unspecified part of unspecified bronchus or lung (principal); R06.02 Shortness of breath; R05 Cough; R50.9 Fever, unspecified; Z91.040 Latex allergy status; Z88.2 Allergy status to sulfonamides; Z88.0 Allergy status to penicillin; Z79.899 Other long term (current) drug therapy
CPT/HCPCS: 36591; 99285; 96374; 36415; 87040; 87086; 85025; 85610; 85730; 80053; 81001; 84484; 85379; 82803; 87804; 71045; 71275; J3490 ×3; J2920

== ENCOUNTER 2018-08-07 14:38 | Inpatient (IN) | payer MEDICAID ==
[2018-08-07] MEDS: NORMAL SALINE 1000 ML 1,000 ML IV PRN ×2 (15:02→16:58)
--- NOTE | 2018-08-07 15:03 | ER Document Report ---
ED Fever - General Stated Complaint: FEVER Time Seen by Provider: 08/07/18 15:02 Notes: 47-year-old female patient history of small cell lung cancer with metastasis, stage IV to the emergency department with hypotension, fever tachycardia and presumed sepsis. Patient is currently on CTLV 4 therapy. Last treatment July 31. Was seen here on the and had CT scan of the chest. Found to have worsening disease. Patient developed a fever last night. Continues to hurt all over. Has pain in the head chest and abdomen and pelvis. Was weak and fell hit her head today as well. Has bruising on her face. Patient is mildly altered. Immediate consultation placed with patient's oncologist who recommends full standard of care and high-dose antibiotics as patient is a full code at this time. Patient followed by Dr. Bradley TRAVEL OUTSIDE OF THE [place] IN LAST 30 DAYS: No - HPI Onset: This morning Onset/Duration: Gradual, Worse Quality of pain: Achy Severity: Severe Pain Level: 4 Context: Cancer, Chemotherapy Associated symptoms: Fever, Headache, Shortness of breath, Slow to respond - Related Data Allergies/Adverse Reactions: latex [Latex] Allergy (Severe, Verified 01/13/18 18:33) Generalized Itching progesterone [Progesterone] Allergy (Severe, Verified 01/13/18 18:33) Chest pain Sulfa (Sulfonamide Antibiotics) Allergy (Severe, Verified 01/13/18 18:33) Hives Penicillins Allergy (Intermediate, Verified 01/13/18 18:33) Hives Past Medical History - General Information source: Patient, Parent - Social History Smoking Status: Smoker,Current Status Unk Frequency of alcohol use: None Drug Abuse: None Lives with: Family Family History: Malignancy - Past Medical History Cardiac Medical History: Denies: Hx Coronary Artery Disease, Hx Heart Attack, Hx Hypertension Pulmonary Medical History: Reports: Hx Pneumonia Denies: Hx Asthma, Hx Bronchitis, Hx COPD Neurological Medical History: Denies: Hx Cerebrovascular Accident, Hx Seizures Renal/ Medical History: Denies: Hx Peritoneal Dialysis Musculoskeletal Medical History: Reports Hx Arthritis Past Surgical History: Reports: Hx Section, Hx Cholecystectomy, Hx Tonsillectomy, Hx Tubal Ligation - Immunizations Hx Diphtheria, Pertussis, Tetanus Vaccination: No - unsure Hx Pneumococcal Vaccination: 05/15/11 Review of Systems - Review of Systems -: Yes ROS unobtainable due to patient's medical condition - Patient altered, minimally responsive and unable to answer all questions ap Physical Exam - Vital signs Vitals: Temp 100.7 F H 08/07/18 15:53 Interpretation: Hypotensive, Tachycardic, Hypoxic, Tachypneic, Febrile - General General appearance: Lethargic In distress: Severe - HEENT Head: Normocephalic Eyes: Normal Cornea: Normal Mucous membranes: Dry Notes: Bruising to the face - Respiratory Respiratory status: Respiratory distress, Labored, Tachypnea Chest status: Nontender Breath sounds: Decreased air movement, Rales. No: Wheezing Chest palpation: Normal - Cardiovascular Rhythm: Tachycardia Heart sounds: Normal auscultation Murmur: No - Abdominal Inspection: Normal Distension: Distended Bowel sounds: Normal Tenderness: Nontender Organomegaly: No organomegaly - Back Back: Normal, Nontender - Extremities General upper extremity: Normal inspection, Nontender, Normal color, Normal ROM, Normal temperature General lower extremity: Normal inspection, Nontender, Edema, Normal color, Normal ROM, Normal temperature. No: Ernestine's sign - Neurological Neuro grossly intact: Yes Cognition: Normal Orientation: AAOx4 Kevin Coma Scale Eye Opening: Spontaneous Kevin Coma Scale Verbal: Oriented Ettrick Coma Scale Motor: Obeys Commands Kevin Coma Scale Total: 15 Speech: Normal Motor strength normal: LUE, RUE, LLE, RLE Sensory: Normal - Skin Skin Temperature: Warm Skin Moisture: Dry Skin Color: Normal Course - Re-evaluation Re-evalutation: 08/07/18 15:38 Patient is very ill-appearing. Septic. Tachycardic. Hypotensive. Febrile. Consulted with patient's oncologist. He recommends starting her after blood cultures obtained on high-dose IV antibiotics. That is being done at this time. We will start her on Primaxin as well as vancomycin. 2 L of fluid ordered. Labs pending. Consulted hospitalist on arrival as patient needs to be moved to the ICU stat. Dr. Harp is accepting. 08/07/18 15:44 08/07/18 15:45 08/07/18 16:21 Laboratory 08/07/18 08/07/18 08/07/18 14:55 14:55 14:55 WBC 8.8 RBC 4.57 Hgb 13.7 Hct 41.4 MCV 91 MCH 30.1 MCHC 33.1 RDW 18.7 H Plt Count 86 L Seg Neutrophils % 56.4 Lymphocytes % 33.9 Monocytes % 7.8 Eosinophils % 0.9 Basophils % 1.0 Absolute Neutrophils 4.9 Absolute Lymphocytes 3.0 Absolute Monocytes 0.7 Absolute Eosinophils 0.1 Absolute Basophils 0.1 PT 13.9 INR 1.02 VBG pH VBG pCO2 VBG HCO3 VBG Base Excess Sodium 133.8 L Potassium 4.0 Chloride 97 L Carbon Dioxide 28 Anion Gap 9 BUN 17 Creatinine 0.78 Est GFR ( Amer) > 60 Est GFR (Non-Af Amer) > 60 Glucose 191 H Lactic Acid Calcium 8.1 L Total Bilirubin 1.1 Direct Bilirubin 0.8 H Neonat Total Bilirubin Not Reportable Neonat Direct Bilirubin Not Reportable Neonat Indirect Bili Not Reportable AST 296 H ALT 167 H Alkaline Phosphatase 310 H Total Protein 6.2 L Albumin 3.6 08/07/18 08/07/18 14:55 14:55 WBC RBC Hgb Hct MCV MCH MCHC RDW Plt Count Seg Neutrophils % Lymphocytes % Monocytes % Eosinophils % Basophils % Absolute Neutrophils Absolute Lymphocytes Absolute Monocytes Absolute Eosinophils Absolute Basophils PT INR VBG pH 7.41 VBG pCO2 46.3 VBG HCO3 29.0 VBG Base Excess 3.6 Sodium Potassium Chloride Carbon Dioxide Anion Gap BUN Creatinine Est GFR ( Amer) Est GFR (Non-Af Amer) Glucose Lactic Acid 1.8 Calcium Total Bilirubin Direct Bilirubin Neonat Total Bilirubin Neonat Direct Bilirubin Neonat Indirect Bili AST ALT Alkaline Phosphatase Total Protein Albumin Chest X-Ray 08/07/18 14:47 IMPRESSION: There is marked opacification in the left base. By history there is neoplasm. Cannot exclude postobstructive atelectasis or consolidation. - Vital Signs Vital signs: Temp Pulse Resp BP Pulse Ox 100.7 F H 08/07/18 15:53 - Laboratory Result Diagrams: 08/07/18 14:55 08/07/18 14:55 Laboratory results interpreted by me: 08/07/18 08/07/18 14:55 14:55 RDW 18.7 H Plt Count 86 L Sodium 133.8 L Chloride 97 L Glucose 191 H Calcium 8.1 L Direct Bilirubin 0.8 H AST 296 H ALT 167 H Alkaline Phosphatase 310 H Total Protein 6.2 L - EKG Interpretation by Nv EKG shows normal: Ulysses, Intervals, QRS Complexes, ST-T Waves Rate: Tachycardia Critical Care Note - Critical Care Note Total time excluding time spent on procedures (mins): 45 Comments: Sepsis, tachycardia, hypotension, hypoxia, consultation with specialist, coordination of care. Discharge - Discharge Clinical Impression: Sepsis Qualifiers: Sepsis type: sepsis due to unspecified organism Qualified Code(s): A41.9 - Sepsis, unspecified organism Condition: Critical Disposition: ADMITTED INPATIENT Admitting Provider: [place] [facility] Unit Admitted: ICU
[2018-08-07] MEDS ORDERED: IMIPENEM/CILASTATIN SODIUM INJ 500 MG VIAL IV ONE (15:11)
[2018-08-07] MEDS ORDERED: VANCOMYCIN HCL INJ 1000 MG VIAL IV ONE (15:12)
[2018-08-07 15:25] LABS: VENOUS BLOOD BASE EXCESS 3.6 mmol/L; VENOUS BLOOD PCO2 46.3 mmHg (35-63); VENOUS BLOOD PH 7.41 (7.30-7.42)
[2018-08-07] MEDS ORDERED: HYDROMORPHONE HCL INJ/PF 2 MG/ML AMPULE IV ONE (15:25)
[2018-08-07] MEDS ORDERED: KETOROLAC TROMETHAMINE INJ/PF 30 MG/1 ML SDV IV ONE (15:26)
[2018-08-07 15:29] LABS: ABSOLUTE BASOPHILS # (AUTO) 0.1 10^3/uL (0.0-0.2); ABSOLUTE EOSINOPHILS # (AUTO) 0.1 10^3/uL (0.0-0.6); ABSOLUTE MONOCYTES (AUTO) 0.7 10^3/uL (0.1-1.4); ABSOLUTE NEUT (AUTO) 4.9 10^3/uL (1.7-8.2); EOSINOPHILS % (AUTO) 0.9 % (0-6); HEMATOCRIT 41.4 % (36.0-47.0); HEMOGLOBIN 13.7 g/dL (12.0-15.5); INTERNATIONAL RATION (INR) 1.02; LYMPHOCYTES % (AUTO) 33.9 % (13-45); MEAN CORPUSCULAR HEMOGLOBIN 30.1 pg (27.0-33.4); MEAN CORPUSCULAR HGB CONC 33.1 g/dL (32.0-36.0); MEAN CORPUSCULAR VOLUME 91 fl (80-97); MONOCYTES % (AUTO) 7.8 % (3-13); PROTHROMBIN TIME 13.9 SEC (11.4-15.4); RED BLOOD COUNT 4.57 10^6/uL (3.72-5.28); RED CELL DISTRIBUTION WIDTH 18.7 % (11.5-14.0); SEGMENTED NEUTROPHILS % (AUTO) 56.4 % (42-78); TOTAL CELLS COUNTED % (AUTO) 100 %; WHITE BLOOD COUNT 8.8 10^3/uL (4.0-10.5)
[2018-08-07] MEDS ORDERED: ALBUTEROL SULFATE 0.083% NEB 2.5 MG/3 ML AMPUL NEB ONE (15:29)
[2018-08-07 15:50] LABS: ALANINE AMINOTRANSFERASE 167 U/L (9-52); ALBUMIN 3.6 g/dL (3.5-5.0); ALKALINE PHOSPHATASE 310 U/L (38-126); ANION GAP 9 (5-19); ASPARTATE AMINO TRANSFERASE 296 U/L (14-36); BILIRUBIN,DIRECT 0.8 mg/dL (0.0-0.4); BILIRUBIN,TOTAL 1.1 mg/dL (0.2-1.3); BLOOD UREA NITROGEN 17 mg/dL (7-20); CALCIUM 8.1 mg/dL (8.4-10.2); CARBON DIOXIDE 28 mmol/L (22-30); CHLORIDE 97 mmol/L (98-107); GLUCOSE 191 mg/dL (75-110); SODIUM 133.8 mmol/L (137-145); TOTAL PROTEIN 6.2 g/dL (6.3-8.2)
--- NOTE | 2018-08-07 15:52 | RADIOLOGY REPORT (SQ) ---
EXAM DESCRIPTION: CHEST SINGLE VIEW COMPLETED DATE/TIME: 08/07/2018 3:41 pm REASON FOR STUDY: sob COMPARISON: 08/03/2018 EXAM PARAMETERS: NUMBER OF VIEWS: One view. TECHNIQUE: Single frontal radiographic view of the chest acquired. RADIATION DOSE: NA LIMITATIONS: None. FINDINGS: LUNGS AND PLEURA: Marked opacification in the left base. MEDIASTINUM AND HILAR STRUCTURES: No masses. Contour normal. HEART AND VASCULAR STRUCTURES: Heart normal in size. Normal vasculature. BONES: No acute findings. HARDWARE: None in the chest. OTHER: No other significant finding. IMPRESSION: There is marked opacification in the left base. By history there is neoplasm. Cannot e xclude postobstructive atelectasis or consolidation. TECHNICAL DOCUMENTATION: JOB ID: [id number] [employer]- All Rights Reserved Reading location - IP/workstation name: [email or web address]
[2018-08-07 15:57] LABS: PLATELET COUNT 86 10^3/uL (150-450)
--- NOTE | 2018-08-07 17:11 | RADIOLOGY REPORT (SQ) ---
EXAM DESCRIPTION: CT HEAD WITHOUT COMPLETED DATE/TIME: 08/07/2018 5:00 pm REASON FOR STUDY: altered , sepsis, fall COMPARISON: None. TECHNIQUE: Axial images acquired through the brain without intravenous contrast. Images reviewed wi th bone, brain and subdural windows. Additional sagittal and coronal reconstructions were generated. Images stored on PACS. All CT scanners at this facility use dose modulation, iterative reconstruction, and/or weight based d osing when appropriate to reduce radiation dose to as low as reasonably achievable (ALARA). [facility]: Dose Right [facility]: CareDose [facility]: Dose Right [facility]: Teradose 4D [facility]: [employer] RADIATION DOSE: CT Rad equipment meets quality standard of care and radiation dose reduction techniq ues were employed. CTDIvol: 53.2 mGy. DLP: 991 mGy-cm. mGy. LIMITATIONS: None. FINDINGS: VENTRICLES: Normal size and contour. CEREBRUM: No masses. No hemorrhage. No midline shift. No evidence for acute infarction. Normal gra y/white matter differentiation. No areas of low density in the white matter. CEREBELLUM: No masses. No hemorrhage. No alteration of density. No evidence for acute infarction. EXTRAAXIAL SPACES: No fluid collections. No masses. ORBITS AND GLOBE: No intra- or extraconal masses. Normal contour of globe without masses. CALVARIUM: No fracture. PARANASAL SINUSES: No fluid or mucosal thickening. SOFT TISSUES: No mass or hematoma. OTHER: No other significant finding. IMPRESSION: NORMAL BRAIN CT WITHOUT CONTRAST. EVIDENCE OF ACUTE STROKE: NO. COMMENT: Quality ID # [id number]: Final reports with documentation of one or more dose reduction techniques (e.g., Automated exposure control, adjustment of the mA and/or kV according to patient size, use of iterative reconstruction technique) TECHNICAL DOCUMENTATION: JOB ID: [id number]- All Rights Reserved Reading location - IP/workstation name: [email or web address]
--- NOTE | 2018-08-07 17:16 | RADIOLOGY REPORT (SQ) ---
EXAM DESCRIPTION: CT CHEST WITHOUT COMPLETED DATE/TIME: 08/07/2018 5:00 pm REASON FOR STUDY: altered , sepsis, fall, chest pain COMPARISON: 08/03/2018. TECHNIQUE: CT scan performed of the chest without intravenous contrast. Images reviewed with lung, soft tissue and bone windows. Reconstructed coronal and sagittal MPR images reviewed. All images st ored on PACS. All CT scanners at this facility use dose modulation, iterative reconstruction, and/or weight based d osing when appropriate to reduce radiation dose to as low as reasonably achievable (ALARA). [facility]: Dose Right [facility]: CareDose [facility]: Dose Right [facility]: Teradose 4D [facility]: [employer] RADIATION DOSE: CT Rad equipment meets quality standard of care and radiation dose reduction techniq ues were employed. CTDIvol: 14.4 mGy. DLP: 1028 mGy-cm. mGy. LIMITATIONS: No technical limitations. FINDINGS: LUNGS AND PLEURA: Again seen is volume loss on left with perihilar opacities. Chronic int erstitial changes throughout both lungs. No large pleural effusion. No pneumothorax. HILAR AND MEDIASTINAL STRUCTURES: No identified masses or abnormal nodes. No obvious aneurysm. HEART AND VASCULAR STRUCTURES: No aneurysm. Pericardial effusion unchanged. UPPER ABDOMEN: See separate report of the CT of the abdomen. THYROID AND OTHER SOFT TISSUES: No masses. No adenopathy. BONES: Multiple sclerotic lesions particularly in vertebrae and ribs. Old fracture of the posterior left 11th rib. No acute fractures. HARDWARE: None in the chest. OTHER: No other significant findings. IMPRESSION: STABLE CHRONIC CHANGES. SCLEROTIC BLASTIC BONY METASTASES. PERICARDIAL EFFUSION. VOLU ME LOSS IN THE LEFT LUNG WITH LEFT PERIHILAR OPACITIES. NO CHANGE FROM THE PRIOR STUDY. NO ACUTE FI NDINGS. TECHNICAL DOCUMENTATION: JOB ID: [id number] Quality ID # [id number]: Final reports with documentation of one or more dose reduction techniques (e.g., Au tomated exposure control, adjustment of the mA and/or kV according to patient size, use of iterative reconstruction technique) 2010 [employer]- All Rights Reserved Reading location - IP/workstation name: [email or web address]
--- NOTE | 2018-08-07 17:19 | RADIOLOGY REPORT (SQ) ---
EXAM DESCRIPTION: CT ABD/PELVIS NO ORAL OR IV COMPLETED DATE/TIME: 08/07/2018 5:00 pm REASON FOR STUDY: altered , sepsis, fall with abd pain COMPARISON: 05/15/2018. TECHNIQUE: CT scan of the abdomen and pelvis performed without intravenous or oral contrast. Images reviewed with lung, soft tissue, and bone windows. Reconstructed coronal and sagittal MPR images revi ewed. All images stored on PACS. All CT scanners at this facility use dose modulation, iterative reconstruction, and/or weight based d osing when appropriate to reduce radiation dose to as low as reasonably achievable (ALARA). [facility]: Dose Right [facility]: CareDose [facility]: Dose Right [facility]: Teradose 4D [facility]: [employer] RADIATION DOSE: mGy. LIMITATIONS: None. FINDINGS: LOWER CHEST: See separate report of the CT of the chest. NON-CONTRASTED LIVER, SPLEEN, ADRENALS: Evaluation limited by lack of IV contrast. No identified sign ificant masses. PANCREAS: No masses. No peripancreatic inflammatory changes. GALLBLADDER: Surgically absent. RIGHT KIDNEY AND URETER: No suspicious masses. Assessment limited by lack of IV contrast. No signif icant calcifications. No hydronephrosis or hydroureter. LEFT KIDNEY AND URETER: No suspicious masses. Assessment limited by lack of IV contrast. No signifi cant calcifications. No hydronephrosis or hydroureter. AORTA AND RETROPERITONEUM: No aneurysm. No retroperitoneal masses or adenopathy. BOWEL AND PERITONEAL CAVITY: No obvious masses or inflammatory changes. No free fluid. APPENDIX: Not visualized. PELVIS, BLADDER, AND ABDOMINAL WALL:No abnormal masses. No free fluid. Bladder normal. BONES: Multiple sclerotic blastic metastases. Old fracture of the posterior left 11th rib. No acute bony findings. OTHER: No other significant finding. IMPRESSION: STABLE NONCONTRAST CT OF THE ABDOMEN AND PELVIS. EXTENSIVE SCLEROTIC BONY METASTASES. NO ACUTE FINDINGS. COMMENT: Quality ID # [id number]: Final reports with documentation of one or more dose reduction techniques (e.g., Automated exposure control, adjustment of the mA and/or kV according to patient size, use of iterative reconstruction technique) TECHNICAL DOCUMENTATION: JOB ID: [id number] [employer]- All Rights Reserved Reading location - IP[facility]workstation name: [email or web address]
[2018-08-07] MEDS ORDERED: VANCOMYCIN HCL 0 MG in DEXTROSE 5%-WATER 250 ML IV NR (17:45)
[2018-08-07] MEDS ORDERED: HYDROMORPHONE HCL INJ/PF 2 MG/ML AMPULE IV PRN (18:13)
[2018-08-07] MEDS ORDERED: IMIPENEM/CILASTATIN SODIUM 500 MG in NORMAL SALINE 100 ML IV SCH (20:00)
[2018-08-07] MEDS: IMIPENEM/CILASTATIN SODIUM 500 MG in NORMAL SALINE 100 ML IV SCH (20:20)
[2018-08-07] MEDS: KETOROLAC TROMETHAMINE INJ/PF 30 MG/1 ML SDV IV PRN (20:20)
--- NOTE | 2018-08-07 20:47 | PDOC H&P ---
History of Present Illness Admission Date/PCP: 08/07/18 16:10 JASMIN BATISTA MD History of Present Illness: QUINTON JAY is a 47 year old female past medical history of small cell lung cancer stage IV currently under care of Dr. Bhumi reyna receiving chemotherapy. Patient is currently on CTLV 4 therapy. Last treatment July 31. Was seen here on the and had CT scan of the chest. As per mother patient was feeling weak and last night she had a fall in the morning she was having generalized pain and weakness and Dr. Batista was called and they were advised to go to ED. In ED patient was found to have with hypotension, fever tachycardia and presumed sepsis. Patient developed a fever last night. Continues to hurt all over. Has bruising on her face. Patient is mildly altered. Dr. Batista was notified by ED physician. And was started on sepsis protocol and empiric antibiotics. Patient was admitted to ICU. Past Medical History Cardiac Medical History: Denies: Coronary Artery Disease, Myocardial Infarction, Hypertension Pulmonary Medical History: Reports: Pneumonia Denies: Asthma, Bronchitis, Chronic Obstructive Pulmonary Disease (COPD) Neurological Medical History: Denies: Seizures Musculoskeltal Medical History: Reports: Arthritis Hematology: Reports: Anemia Past Surgical History Past Surgical History: Reports: Section, Cholecystectomy, Tonsillectomy, Tubal Ligation Social History Lives with: Family Smoking Status: Smoker,Current Status Unk - Advance Directive Resuscitation Status: Full Code Family History Family History: Malignancy Parental Family History Reviewed: Yes Children Family History Reviewed: Yes Sibling(s) Family History Reviewed.: Yes Medication/Allergy Home Medications: Levothyroxine Sodium [Synthroid 0.1 mg Tablet] 100 mcg PO DAILY 06/23/11 Furosemide [Lasix 20 mg Tablet] 20 mg PO QAM PRN 09/09/12 Acetaminophen [Tylenol] 325 mg PO DAILYP PRN 08/16/15 Chlorpheniramine Maleate [Allergy Relief] 4 mg PO BID 01/02/17 Lubiprostone [Amitiza 24 Mcg Capsule] 24 mcg PO DAILY 05/09/18 Methylprednisolone [Medrol Dosepack (4 mg/Tab) 21 Tab/Dosepak] 4 mg PO ASDIR PRN #21 tab.ds.pk 08/03/18 Gabapentin [Neurontin 300 mg Capsule] 300 mg PO QID 08/07/18 Allergies/Adverse Reactions: latex [Latex] Allergy (Severe, Verified 01/13/18 18:33) Generalized Itching progesterone [Progesterone] Allergy (Severe, Verified 01/13/18 18:33) Chest pain Sulfa (Sulfonamide Antibiotics) Allergy (Severe, Verified 01/13/18 18:33) Hives Penicillins Allergy (Intermediate, Verified 01/13/18 18:33) Hives Review of Systems Constitutional: ABSENT: chills, fever(s), headache(s), weight gain, weight loss Eyes: ABSENT: visual disturbances Ears: ABSENT: hearing changes Cardiovascular: ABSENT: chest pain, dyspnea on exertion, edema, orthropnea, pa lpitations Respiratory: ABSENT: cough, hemoptysis Gastrointestinal: ABSENT: abdominal pain, constipation, diarrhea, hematemesis, hematochezia, nausea, vomiting Genitourinary: ABSENT: dysuria, hematuria Musculoskeletal: ABSENT: joint swelling Integumentary: ABSENT: rash, wounds Neurological: ABSENT: abnormal gait, abnormal speech, confusion, dizziness, focal weakness, syncope Psychiatric: ABSENT: anxiety, depression, homidical ideation, suicidal ideation Endocrine: ABSENT: cold intolerance, heat intolerance, polydipsia, polyuria Hematologic/Lymphatic: ABSENT: easy bleeding, easy bruising Physical Exam Vital Signs: Temp Pulse Resp BP Pulse Ox 100.7 F H 113 H 24 H 103/60 97 08/07/18 15:53 08/07/18 19:00 08/07/18 19:00 08/07/18 18:02 08/07/18 19:00 Intake & Output 08/06/18 08/07/18 08/08/18 06:59 06:59 06:59 Intake Total 1999 Balance 2000 Weight 96.7 kg General appearance: PRESENT: mild distress, obese Head exam: PRESENT: other - Right facial bruise. Respiratory exam: PRESENT: accessory muscle use, clear to auscultation kylie, tachypnea. ABSENT: rales, rhonchi, wheezes Cardiovascular exam: PRESENT: RRR, tachycardia. ABSENT: diastolic murmur, rubs, systolic murmur GI/Abdominal exam: PRESENT: normal bowel sounds, soft. ABSENT: distended, guarding, mass, organolmegaly, rebound, tenderness Extremities exam: PRESENT: full ROM. ABSENT: calf tenderness, clubbing, pedal edema Neurological exam: PRESENT: altered, awake, oriented to person, oriented to place Skin exam: PRESENT: dry, intact, warm. ABSENT: cyanosis, rash Results Laboratory Results: 08/07/18 14:55 08/07/18 14:55 08/07/18 08/07/18 08/07/18 14:55 14:55 14:55 WBC 8.8 RBC 4.57 Hgb 13.7 Hct 41.4 MCV 91 MCH 30.1 MCHC 33.1 RDW 18.7 H Plt Count 86 L Seg Neutrophils % 56.4 Lymphocytes % 33.9 Monocytes % 7.8 Eosinophils % 0.9 Basophils % 1.0 Absolute Neutrophils 4.9 Absolute Lymphocytes 3.0 Absolute Monocytes 0.7 Absolute Eosinophils 0.1 Absolute Basophils 0.1 VBG pH VBG pCO2 VBG HCO3 VBG Base Excess Sodium 133.8 L Potassium 4.0 Chloride 97 L Carbon Dioxide 28 Anion Gap 9 BUN 17 Creatinine 0.78 Est GFR ( Amer) > 60 Est GFR (Non-Af Amer) > 60 Glucose 191 H Lactic Acid 1.8 Calcium 8.1 L Total Bilirubin 1.1 AST 296 H ALT 167 H Alkaline Phosphatase 310 H Total Protein 6.2 L Albumin 3.6 08/07/18 14:55 WBC RBC Hgb Hct MCV MCH MCHC RDW Plt Count Seg Neutrophils % Lymphocytes % Monocytes % Eosinophils % Basophils % Absolute Neutrophils Absolute Lymphocytes Absolute Monocytes Absolute Eosinophils Absolute Basophils VBG pH 7.41 VBG pCO2 46.3 VBG HCO3 29.0 VBG Base Excess 3.6 Sodium Potassium Chloride Carbon Dioxide Anion Gap BUN Creatinine Est GFR ( Amer) Est GFR (Non-Af Amer) Glucose Lactic Acid Calcium Total Bilirubin AST ALT Alkaline Phosphatase Total Protein Albumin 08/07/18 14:55 Troponin I 0.052 Impressions: Chest X-Ray 08/07/18 14:47 IMPRESSION: There is marked opacification in the left base. By history there is neoplasm. Cannot exclude postobstructive atelectasis or consolidation. Abdomen/Pelvis CT 08/07/18 15:20 IMPRESSION: STABLE NONCONTRAST CT OF THE ABDOMEN AND PELVIS. EXTENSIVE SCLEROTIC BONY METASTASES. NO ACUTE FINDINGS. Chest CT 08/07/18 15:20 IMPRESSION: STABLE CHRONIC CHANGES. SCLEROTIC BLASTIC BONY METASTASES. PERICARDIAL EFFUSION. VOLUME LOSS IN THE LEFT LUNG WITH LEFT PERIHILAR OPACITIES. NO CHANGE FROM THE PRIOR STUDY. NO ACUTE FINDINGS. Head CT 08/07/18 15:20 IMPRESSION: NORMAL BRAIN CT WITHOUT CONTRAST. EVIDENCE OF ACUTE STROKE: NO. Assessment & Plan - Diagnosis (1) Sepsis Qualifiers: Sepsis type: sepsis due to unspecified organism Qualified Code(s): A41.9 - Sepsis, unspecified organism Is this a current diagnosis for this admission?: Yes Plan: Volume resuscitation, empiric broad-spectrum antibiotics. Admit to ICU. This is likely due to complication of recent chemotherapy coupled with advanced m etastatic small lung carcinoma. Hematology oncology was consulted. (2) Small cell lung cancer Is this a current diagnosis for this admission?: Yes Plan: History is for small lung carcinoma. Only under care of [facility]. (3) Elevated liver enzymes Is this a current diagnosis for this admission?: Yes Plan: Likely secondary to sepsis or complication of chemotherapy. Continue volume resuscitation. Treat underlying sepsis. LFTs tomorrow.
--- NOTE | 2018-08-07 21:05 | EKG REPORT ---
SEVERITY:- ABNORMAL ECG - SINUS TACHYCARDIA LOW VOLTAGE WITH RIGHT AXIS DEVIATION BORDERLINE R WAVE PROGRESSION, ANTERIOR LEADS BORDERLINE T ABNORMALITIES, ANTERIOR LEADS : Confirmed by: Bia Barnes MD 07-Aug-2018 21:04:34
[2018-08-07] MEDS ORDERED: HEPARIN SOD (PORCINE) 5,000 UNIT/ML 1 ML SYRINGE SUBCUT SCH (22:00)
[2018-08-07] MEDS: FAMOTIDINE INJ/PF 20 MG/2 ML SDV IV SCH (22:03)
[2018-08-07] MEDS: HYDROMORPHONE HCL INJ/PF 2 MG/ML AMPULE IV PRN (22:09)
[2018-08-08] MEDS: IMIPENEM/CILASTATIN SODIUM 500 MG in NORMAL SALINE 100 ML IV SCH ×4 (03:06→20:37)
[2018-08-08] MEDS: VANCOMYCIN HCL 1,250 MG in DEXTROSE 5%-WATER 250 ML IV SCH ×2 (03:06→16:06)
[2018-08-08] MEDS: HYDROMORPHONE HCL INJ/PF 2 MG/ML AMPULE IV PRN ×4 (03:09→20:36)
[2018-08-08 04:45] LABS: ARTERIAL BLOOD BASE EXCESS 0.4 mmol/L; ARTERIAL BLOOD H2CO3 1.48 mmol/L (1.05-1.35); ARTERIAL BLOOD HCO3 26.6 mmol/L (20-24); ARTERIAL BLOOD O2 SATURATION 95.8 % (94-98); ARTERIAL BLOOD PCO2 49.2 mmHg (35-45); ARTERIAL BLOOD PH 7.35 (7.35-7.45); ARTERIAL BLOOD PO2 84.3 mmHg (80-100); ARTERIAL BLOOD TOTAL CO2 28.1 mmol/L (21-25)
[2018-08-08 04:48] LABS: HEMATOCRIT 36.2 % (36.0-47.0); MEAN CORPUSCULAR HEMOGLOBIN 29.9 pg (27.0-33.4); MEAN CORPUSCULAR HGB CONC 33.2 g/dL (32.0-36.0); MEAN CORPUSCULAR VOLUME 90 fl (80-97); RED BLOOD COUNT 4.02 10^6/uL (3.72-5.28); RED CELL DISTRIBUTION WIDTH 19.7 % (11.5-14.0)
[2018-08-08 04:59] LABS: ALANINE AMINOTRANSFERASE 133 U/L (9-52); ALBUMIN 2.9 g/dL (3.5-5.0); ALKALINE PHOSPHATASE 241 U/L (38-126); ANION GAP 6 (5-19); ASPARTATE AMINO TRANSFERASE 186 U/L (14-36); BILIRUBIN,DIRECT 0.6 mg/dL (0.0-0.4); BILIRUBIN,TOTAL 0.7 mg/dL (0.2-1.3); BLOOD UREA NITROGEN 21 mg/dL (7-20); CALCIUM 7.2 mg/dL (8.4-10.2); CARBON DIOXIDE 27 mmol/L (22-30); CHLORIDE 103 mmol/L (98-107); GLUCOSE 186 mg/dL (75-110); POTASSIUM 3.9 mmol/L (3.6-5.0); SODIUM 135.8 mmol/L (137-145); TOTAL PROTEIN 5.6 g/dL (6.3-8.2)
[2018-08-08 05:10] LABS: ARTERIAL BLOOD FIO2 50%
[2018-08-08 05:12] LABS: PLATELET COUNT 86 10^3/uL (150-450)
--- NOTE | 2018-08-08 08:38 | PDOC CONSULTATION ---
Consultation Consult Date: 08/08/18 Attending physician:: KENDRA MARTINEZ Consult reason:: Extensive stage small cell lung cancer with shortness of breath, weakness, confusion, sepsis History of Present Illness Admission Date/PCP: 08/07/18 16:10 JASMIN BATISTA MD Patient complains of: Confusion, shortness of breath, weakness History of Present Illness: QUINTON JAY is a 47 year old female with known history of extensive stage small cell lung cancer, now on second line therapy with dual agent immunotherapy with YERVOY/OPDIVO, recently received cycle #3 about a week ago. Over the last week she has been experiencing increasing shortness of breath, weakness of note with the immunotherapy she did have true skin toxicity related to that so she is mounting an immune response. She came in post fall just about 3 days ago to the ED and she was found to have no PE on CTA of the chest but there was some left lower lobe collapse that seem to be new compared to previous imaging. Of note she has small cell lung cancer with disease mostly in the chest, she had disease in multiple areas of the left lung so that is why she was extensive stage disease, she had had some progression of disease in the mediastinum in 05/2018 therefore we stopped previous chemotherapy which was carbo/etoposide and started dual agent immunotherapy. After initiation of immunotherapy she actually started to do better, and clinically she was stable until about 1 week ago. She began experiencing worsening shortness of breath about 2 days ago, ultimately she became confused over the last 24 hours, lethargic, unable to get out of bed and ultimately her family called us. We asked them to bring her to the ED, she could not get her up so they brought her by EMS. Upon presentation she was lethargic, breathing 35 times a minute, hypotensive tachycardic so fit Sirs criteria, was started on broad-spectrum antibiotics with imipenem and vancomycin. She was placed on BiPAP and placed in the ICU. Past Medical History Cardiac Medical History: Denies: Coronary Artery Disease, Myocardial Infarction, Hypertension Pulmonary Medical History: Reports: Pneumonia Denies: Asthma, Bronchitis, Chronic Obstructive Pulmonary Disease (COPD) Neurological Medical History: Denies: Seizures Malignancy Medical History: Reports: Lung Cancer Musculoskeltal Medical History: Reports: Arthritis Psychiatric Medical History: Denies: Depression Hematology: Reports: Anemia Past Surgical History Past Surgical History: Reports: Section, Cholecystectomy, Tonsill ectomy, Tubal Ligation, Other - Port placement Social History Information Source: Patient Lives with: Family Smoking Status: Smoker,Current Status Unk Cigarettes Packs Per Day: 2 Cigars Per Day: 0 Pipes Per Day: 0 Number of Years Smokin Last Time Smoked: JANUARY 2018 Frequency of Alcohol Use: None Hx Recreational Drug Use: No Hx Prescription Drug Abuse: No - Advance Directive Resuscitation Status: Full Code Family History Family History: Malignancy Parental Family History Reviewed: Yes Children Family History Reviewed: Yes Sibling(s) Family History Reviewed.: Yes Medication/Allergy Home Medications: Levothyroxine Sodium [Synthroid 0.1 mg Tablet] 100 mcg PO DAILY 06/23/11 Furosemide [Lasix 20 mg Tablet] 20 mg PO QAM PRN 09/09/12 Acetaminophen [Tylenol] 325 mg PO DAILYP PRN 08/16/15 Chlorpheniramine Maleate [Allergy Relief] 4 mg PO BID 01/02/17 Lubiprostone [Amitiza 24 Mcg Capsule] 24 mcg PO DAILY 05/09/18 Methylprednisolone [Medrol Dosepack (4 mg/Tab) 21 Tab/Dosepak] 4 mg PO ASDIR PRN #21 tab.ds.pk 08/03/18 Gabapentin [Neurontin 300 mg Capsule] 300 mg PO QID 08/07/18 Allergies/Adverse Reactions: latex [Latex] Allergy (Severe, Verified 01/13/18 18:33) Generalized Itching progesterone [Progesterone] Allergy (Severe, Verified 01/13/18 18:33) Chest pain Sulfa (Sulfonamide Antibiotics) Allergy (Severe, Verified 01/13/18 18:33) Hives Penicillins Allergy (Intermediate, Verified 01/13/18 18:33) Hives Review of Systems Constitutional: ABSENT: chills, fever(s), headache(s), weight gain, weight loss Eyes: ABSENT: visual disturbances Ears: ABSENT: hearing changes Cardiovascular: ABSENT: chest pain, dyspnea on exertion, edema, orthropnea, palpitations Respiratory: ABSENT: cough, hemoptysis Gastrointestinal: ABSENT: abdominal pain, constipation, diarrhea, hematemesis, hematochezia, nausea, vomiting Genitourinary: ABSENT: dysuria, hematuria Musculoskeletal: ABSENT: joint swelling Integumentary: ABSENT: rash, wounds Neurological: ABSENT: abnormal gait, abnormal speech, confusion, dizziness, focal weakness, syncope Psychiatric: ABSENT: anxiety, depression, homidical ideation, suicidal ideation Endocrine: ABSENT: cold intolerance, heat intolerance, polydipsia, polyuria Hematologic/Lymphatic: ABSENT: easy bleeding, easy bruising Physical Exam Vital Signs: Temp Pulse Resp BP Pulse Ox 97.8 F 94 16 110/79 94 08/08/18 06:00 08/08/18 06:00 08/08/18 06:00 08/08/18 06:00 08/08/18 06:00 Intake & Output 08/07/18 08/08/18 08/09/18 06:59 06:59 06:59 Intake Total 2930 Output Total 1025 Balance 1905 Weight 96.7 kg General appearance: PRESENT: no acute distress, well-developed, well-nourished Head exam: PRESENT: atraumatic, normocephalic Eye exam: PRESENT: conjunctiva pink, EOMI, PERRLA. ABSENT: scleral icterus Ear exam: PRESENT: normal external ear exam Mouth exam: PRESENT: moist, tongue midline Neck exam: ABSENT: carotid bruit, JVD, lymphadenopathy, thyromegaly Respiratory exam: PRESENT: clear to auscultation kylie. ABSENT: rales, rhonchi, wheezes Cardiovascular exam: PRESENT: RRR. ABSENT: diastolic murmur, rubs, systolic murmur Pulses: PRESENT: normal dorsalis pedis pul Vascular exam: PRESENT: normal capillary refill GI/Abdominal exam: PRESENT: normal bowel sounds, soft. ABSENT: distended, guarding, mass, organolmegaly, rebound, tenderness Rectal exam: PRESENT: deferred Extremities exam: PRESENT: full ROM. ABSENT: calf tenderness, clubbing, pedal edema Neurological exam: PRESENT: alert, awake, oriented to person, oriented to place, oriented to time, oriented to situation, CN II-XII grossly intact. ABSENT: motor sensory deficit Psychiatric exam: PRESENT: appropriate affect, normal mood. ABSENT: homicidal ideation, suicidal ideation Skin exam: PRESENT: dry, intact, warm. ABSENT: cyanosis, rash Results Laboratory Results: 08/08/18 04:24 08/08/18 04:24 08/07/18 08/07/18 08/07/18 14:55 14:55 14:55 WBC 8.8 RBC 4.57 Hgb 13.7 Hct 41.4 MCV 91 MCH 30.1 MCHC 33.1 RDW 18.7 H Plt Count 86 L Seg Neutrophils % 56.4 Lymphocytes % 33.9 Monocytes % 7.8 Eosinophils % 0.9 Basophils % 1.0 Absolute Neutrophils 4.9 Absolute Lymphocytes 3.0 Absolute Monocytes 0.7 Absolute Eosinophils 0.1 Absolute Basophils 0.1 Carbonic Acid HCO3/H2CO3 Ratio ABG pH ABG pCO2 ABG pO2 ABG HCO3 ABG O2 Saturation ABG Base Excess VBG pH VBG pCO2 VBG HCO3 VBG Base Excess FiO2 Sodium 133.8 L Potassium 4.0 Chloride 97 L Carbon Dioxide 28 Anion Gap 9 BUN 17 Creatinine 0.78 Est GFR ( Amer) > 60 Est GFR (Non-Af Amer) > 60 Glucose 191 H Lactic Acid 1.8 Calcium 8.1 L Total Bilirubin 1.1 AST 296 H ALT 167 H Alkaline Phosphatase 310 H Total Protein 6.2 L Albumin 3.6 08/07/18 08/08/18 08/08/18 14:55 04:24 04:24 WBC 8.0 RBC 4.02 Hgb 12.0 Hct 36.2 MCV 90 MCH 29.9 MCHC 33.2 RDW 19.7 H Plt Count 86 L Seg Neutrophils % Lymphocytes % Monocytes % Eosinophils % Basophils % Absolute Neutrophils Absolute Lymphocytes Absolute Monocytes Absolute Eosinophils Absolute Basophils Carbonic Acid HCO3/H2CO3 Ratio ABG pH ABG pCO2 ABG pO2 ABG HCO3 ABG O2 Saturation ABG Base Excess VBG pH 7.41 VBG pCO2 46.3 VBG HCO3 29.0 VBG Base Excess 3.6 FiO2 Sodium 135.8 L Potassium 3.9 Chloride 103 Carbon Dioxide 27 Anion Gap 6 BUN 21 H Creatinine 0.56 Est GFR ( Amer) > 60 Est GFR (Non-Af Amer) > 60 Glucose 186 H Lactic Acid Calcium 7.2 L Total Bilirubin 0.7 AST 186 H ALT 133 H Alkaline Phosphatase 241 H Total Protein 5.6 L Albumin 2.9 L 08/08/18 04:37 WBC RBC Hgb Hct MCV MCH MCHC RDW Plt Count Seg Neutrophils % Lymphocytes % Monocytes % Eosinophils % Basophils % Absolute Neutrophils Absolute Lymphocytes Absolute Monocytes Absolute Eosinophils Absolute Basophils Carbonic Acid 1.48 H HCO3/H2CO3 Ratio 17:1 ABG pH 7.35 ABG pCO2 49.2 H ABG pO2 84.3 ABG HCO3 26.6 H ABG O2 Saturation 95.8 ABG Base Excess 0.4 VBG pH VBG pCO2 VBG HCO3 VBG Base Excess FiO2 50% Sodium Potassium Chloride Carbon Dioxide Anion Gap BUN Creatinine Est GFR ( Amer) Est GFR (Non-Af Amer) Glucose Lactic Acid Calcium Total Bilirubin AST ALT Alkaline Phosphatase Total Protein Albumin 08/07/18 14:55 Troponin I 0.052 Impressions: Chest X-Ray 08/07/18 14:47 IMPRESSION: There is marked opacification in the left base. By history there is neoplasm. Cannot exclude postobstructive atelectasis or consolidation. Abdomen/Pelvis CT 08/07/18 15:20 IMPRESSION: STABLE NONCONTRAST CT OF THE ABDOMEN AND PELVIS. EXTENSIVE S CLEROTIC BONY METASTASES. NO ACUTE FINDINGS. Chest CT 08/07/18 15:20 IMPRESSION: STABLE CHRONIC CHANGES. SCLEROTIC BLASTIC BONY METASTASES. PERICARDIAL EFFUSION. VOLUME LOSS IN THE LEFT LUNG WITH LEFT PERIHILAR OPACITIES. NO CHANGE FROM THE PRIOR STUDY. NO ACUTE FINDINGS. Head CT 08/07/18 15:20 IMPRESSION: NORMAL BRAIN CT WITHOUT CONTRAST. EVIDENCE OF ACUTE STROKE: NO. Status: Image reviewed by me Assessment & Plan - Diagnosis (1) Small cell lung cancer Is this a current diagnosis for this admission?: Yes Plan: I reviewed all of her images she had CT of the head, chest abdomen pelvis, there is some changes in the left lower lobe, possibly because of an endobronchial lesion but these changes can also be because of T-cell recruitment to that cancer area. To that extent I will start her on high-dose steroids at [facility]- Medrol 80 mg IV daily. We will monitor her closely but these changes may be because of the immunotherapy as opposed to progression of disease. I explained that to the patient as well as the family who understand she could go either way. Currently I believe we should continue with aggressive measures, and keep all options on the table. There is not any disease outside of the chest as of now, no disease in the abdomen or the brain. (2) Sepsis Qualifiers: Sepsis type: sepsis due to unspecified organism Qualified Code(s): A41.9 - Sepsis, unspecified organism Is this a current diagnosis for this admission?: Yes Plan: Continue with broad-spectrum antibiotics and other supportive measures. Awaiting cultures. If cultures are negative over the next 48 hours we should discontinue the vancomycin and I will help with that. (3) Elevated liver enzymes Is this a current diagnosis for this admission?: Yes Plan: Could be because of shock liver but also could be because of immune response, liver toxicity can be caused by immune cell recruitment. Steroids have been s tarted. Other supportive measures. (4) Respiratory failure with hypoxia Qualifiers: Chronicity: acute Qualified Code(s): J96.01 - Acute respiratory failure with hypoxia Is this a current diagnosis for this admission?: Yes Plan: Secondary to worsening lung status most likely, hopefully steroids will help with his continue with BiPAP support per hospitalist and nursing team. Will follow closely. (5) Thrombocytopenia Is this a current diagnosis for this admission?: Yes Plan: Possibly secondary to the immunotherapy, may be is from immune response, may also be related to sepsis we will follow. - Time Time Spent: Greater than 70 Minutes - Inpatient Certification Based on my medical assessment, after consideration of the patient's comorbidities, presenting symptoms, or acuity I expect that the services needed warrant INPATIENT care.: Yes I certify that my determination is in accordance with my understanding of Medicare's requirements for reasonable and necessary INPATIENT services [42 CFR 412.3e].: Yes Medical Necessity: Need For IV Fluids, Need For Continuous Telemetry Monitoring, Need for Nebulizer Therapy and Monitoring of Response, Need for IV Antibiotics, Risk of Complication if Not Cared For in Hospital
[2018-08-08] MEDS: KETOROLAC TROMETHAMINE INJ/PF 30 MG/1 ML SDV IV PRN ×2 (09:51→23:02)
[2018-08-08] MEDS: FAMOTIDINE INJ/PF 20 MG/2 ML SDV IV SCH ×2 (09:53→21:16)
[2018-08-08] MEDS: NORMAL SALINE 1000 ML 1,000 ML IV PRN ×2 (11:28→23:03)
[2018-08-08] MEDS: METHYLPREDNISOLONE INJ 125 MG/2 ML SDV IV SCH (11:31)
[2018-08-08] MEDS ORDERED: FLUCONAZOLE 100 MG TABLET PO ONE (19:00)
--- NOTE | 2018-08-08 19:29 | PDOC PROGRESS REPORT ---
Subjective Progress Note for:: 08/08/18 Subjective:: No acute events overnight patient. Patient has significant recovery of her symptoms since admission. On my encounter patient comfortably resting on supplemental oxygen saturating 90% on 5 L. Patient think that she is feeling hot otherwise denying any shortness of breath, chest pain, nausea, vomiting, diarrhea or any constipation. Still complaining of right ankle pain. Stating that she filled the night before admission. Reason For Visit: PNEUMONIA,SEPSIS Physical Exam Vital Signs: Temp Pulse Resp BP Pulse Ox 97.4 F 101 H 15 119/92 H 99 08/08/18 16:00 08/08/18 16:00 08/08/18 18:09 08/08/18 18:09 08/08/18 18:09 Intake & Output 08/07/18 08/08/18 08/09/18 06:59 06:59 06:59 Intake Total 2930 200 Output Total 1025 800 Balance 1905 -600 Weight 96.7 kg General appearance: PRESENT: no acute distress, well-developed, well-nourished Head exam: PRESENT: atraumatic, normocephalic Respiratory exam: PRESENT: clear to auscultation kylie. ABSENT: rales, rhonchi, wheezes Cardiovascular exam: PRESENT: RRR. ABSENT: diastolic murmur, rubs, systolic murmur Extremities exam: PRESENT: tenderness - Right ankle tenderness and swelling. Limited range of motion. Neurovascularly intact. Neurological exam: PRESENT: alert, awake, oriented to person, oriented to place, oriented to time, oriented to situation, CN II-XII grossly intact. ABSENT: motor sensory deficit Results Laboratory Results: 08/08/18 04:24 08/08/18 04:24 08/08/18 08/08/18 08/08/18 04:24 04:24 04:37 WBC 8.0 RBC 4.02 Hgb 12.0 Hct 36.2 MCV 90 MCH 29.9 MCHC 33.2 RDW 19.7 H Plt Count 86 L Carbonic Acid 1.48 H HCO3/H2CO3 Ratio 17:1 ABG pH 7.35 ABG pCO2 49.2 H ABG pO2 84.3 ABG HCO3 26.6 H ABG O2 Saturation 95.8 ABG Base Excess 0.4 FiO2 50% Sodium 135.8 L Potassium 3.9 Chloride 103 Carbon Dioxide 27 Anion Gap 6 BUN 21 H Creatinine 0.56 Est GFR ( Amer) > 60 Est GFR (Non-Af Amer) > 60 Glucose 186 H Calcium 7.2 L Total Bilirubin 0.7 AST 186 H ALT 133 H Alkaline Phosphatase 241 H Total Protein 5.6 L Albumin 2.9 L 08/07/18 14:55 Troponin I 0.052 Impressions: Chest X-Ray 08/07/18 14:47 IMPRESSION: There is marked opacification in the left base. By history there is neoplasm. Cannot exclude postobstructive atelectasis or consolidation. Abdomen/Pelvis CT 08/07/18 15:20 IMPRESSION: STABLE NONCONTRAST CT OF THE ABDOMEN AND PELVIS. EXTENSIVE SCLEROTIC BONY METASTASES. NO ACUTE FINDINGS. Chest CT 08/07/18 15:20 IMPRESSION: STABLE CHRONIC CHANGES. SCLEROTIC BLASTIC BONY METASTASES. PERICARDIAL EFFUSION. VOLUME LOSS IN THE LEFT LUNG WITH LEFT PERIHILAR OPACITIES. NO CHANGE FROM THE PRIOR STUDY. NO ACUTE FINDINGS. Head CT 08/07/18 15:20 IMPRESSION: NORMAL BRAIN CT WITHOUT CONTRAST. EVIDENCE OF ACUTE STROKE: NO. Assessment & Plan - Diagnosis (1) Sepsis Qualifiers: Sepsis type: sepsis due to unspecified organism Qualified Code(s): A41.9 - Sepsis, unspecified organism Is this a current diagnosis for this admission?: Yes Plan: Cultures negative so far. Continue empiric IV antibiotics. Downgraded to IMCU. Cultures negative so far unlikely infectious process. Likely immune response to recent chemotherapy. Chart on high-dose steroids by oncologist. (2) Small cell lung cancer Is this a current diagnosis for this admission?: Yes Plan: Oncology on board. Recommendations noted. (3) Elevated liver enzymes Is this a current diagnosis for this admission?: Yes Plan: Improving. Likely secondary to sepsis or complication of chemotherapy. LFTs tomorrow.
[2018-08-09] MEDS: HYDROMORPHONE HCL INJ/PF 2 MG/ML AMPULE IV PRN ×4 (00:26→19:56)
[2018-08-09] MEDS: VANCOMYCIN HCL 1,250 MG in DEXTROSE 5%-WATER 250 ML IV SCH ×2 (02:09→15:31)
[2018-08-09] MEDS: IMIPENEM/CILASTATIN SODIUM 500 MG in NORMAL SALINE 100 ML IV SCH ×4 (02:09→20:01)
[2018-08-09 04:50] LABS: ABSOLUTE LYMPHOCYTES (AUTO) 1.8 10^3/uL (0.5-4.7); ABSOLUTE MONOCYTES (AUTO) 0.7 10^3/uL (0.1-1.4); ABSOLUTE NEUT (AUTO) 4.3 10^3/uL (1.7-8.2); BASOPHILS % (AUTO) 0.3 % (0-2); EOSINOPHILS % (AUTO) 0.3 % (0-6); HEMATOCRIT 34.8 % (36.0-47.0); HEMOGLOBIN 11.6 g/dL (12.0-15.5); LYMPHOCYTES % (AUTO) 26.4 % (13-45); MEAN CORPUSCULAR HEMOGLOBIN 30.2 pg (27.0-33.4); MEAN CORPUSCULAR HGB CONC 33.4 g/dL (32.0-36.0); MEAN CORPUSCULAR VOLUME 90 fl (80-97); MONOCYTES % (AUTO) 10.6 % (3-13); RED BLOOD COUNT 3.85 10^6/uL (3.72-5.28); RED CELL DISTRIBUTION WIDTH 18.5 % (11.5-14.0); SEGMENTED NEUTROPHILS % (AUTO) 62.4 % (42-78); TOTAL CELLS COUNTED % (AUTO) 100 %; WHITE BLOOD COUNT 6.9 10^3/uL (4.0-10.5)
[2018-08-09 04:57] LABS: ALANINE AMINOTRANSFERASE 103 U/L (9-52); ALBUMIN 3.2 g/dL (3.5-5.0); ALKALINE PHOSPHATASE 223 U/L (38-126); ASPARTATE AMINO TRANSFERASE 136 U/L (14-36); BILIRUBIN,DIRECT 0.5 mg/dL (0.0-0.4); BILIRUBIN,TOTAL 0.7 mg/dL (0.2-1.3); BLOOD UREA NITROGEN 21 mg/dL (7-20); CALCIUM 7.8 mg/dL (8.4-10.2); GLUCOSE 142 mg/dL (75-110); POTASSIUM 4.1 mmol/L (3.6-5.0); TOTAL PROTEIN 5.9 g/dL (6.3-8.2)
[2018-08-09 05:02] LABS: CARBON DIOXIDE 31 mmol/L (22-30); CHLORIDE 104 mmol/L (98-107); SODIUM 137.2 mmol/L (137-145)
[2018-08-09 05:05] LABS: ANION GAP 2 (5-19)
[2018-08-09 05:33] LABS: PLATELET COUNT 88 10^3/uL (150-450)
--- NOTE | 2018-08-09 10:49 | PDOC PROGRESS REPORT ---
Subjective Progress Note for:: 08/09/18 Subjective:: Patient states that her breathing is better today than yesterday. She has had some bowel incontinence that she is concerned about. She is also having increased right foot pain after injury. Requesting X-ray of this foot. ROS: no dysuria. No chest pain. Reason For Visit: PNEUMONIA,SEPSIS Physical Exam Vital Signs: Temp Pulse Resp BP Pulse Ox 97.7 F 104 H 21 H 128/81 H 100 08/09/18 08:00 08/09/18 09:24 08/09/18 08:00 08/09/18 08:00 08/09/18 08:00 Intake & Output 08/08/18 08/09/18 08/10/18 06:59 06:59 06:59 Intake Total 2930 2000 100 Output Total 1025 800 200 Balance 1905 1200 -100 Weight 96.7 kg 99.3 kg General appearance: PRESENT: obese Head exam: PRESENT: normocephalic Respiratory exam: PRESENT: clear to auscultation kylie, unlabored Cardiovascular exam: PRESENT: RRR GI/Abdominal exam: PRESENT: soft. ABSENT: tenderness Extremities exam: PRESENT: other - Right ankle with edema and echymoses. Neurological exam: PRESENT: alert, awake Psychiatric exam: PRESENT: appropriate affect Results Laboratory Results: 08/09/18 04:23 08/09/18 04:23 08/09/18 08/09/18 04:23 04:23 WBC 6.9 RBC 3.85 Hgb 11.6 L Hct 34.8 L MCV 90 MCH 30.2 MCHC 33.4 RDW 18.5 H Plt Count 88 L Seg Neutrophils % 62.4 Lymphocytes % 26.4 Monocytes % 10.6 Eosinophils % 0.3 Basophils % 0.3 Absolute Neutrophils 4.3 Absolute Lymphocytes 1.8 Absolute Monocytes 0.7 Absolute Eosinophils 0.0 Absolute Basophils 0.0 Sodium 137.2 Potassium 4.1 Chloride 104 Carbon Dioxide 31 H Anion Gap 2 L BUN 21 H Creatinine 0.54 Est GFR ( Amer) > 60 Est GFR (Non-Af Amer) > 60 Glucose 142 H Calcium 7.8 L Magnesium 2.4 H Total Bilirubin 0.7 AST 136 H ALT 103 H Alkaline Phosphatase 223 H Total Protein 5.9 L Albumin 3.2 L 08/07/18 14:55 Troponin I 0.052 Impressions: Chest X-Ray 08/07/18 14:47 IMPRESSION: There is marked opacification in the left base. By history there is neoplasm. Cannot exclude postobstructive atelectasis or consolidation. Abdomen/Pelvis CT 08/07/18 15:20 IMPRESSION: STABLE NONCONTRAST CT OF THE ABDOMEN AND PELVIS. EXTENSIVE SCLEROTIC BONY METASTASES. NO ACUTE FINDINGS. Chest CT 08/07/18 15:20 IMPRESSION: STABLE CHRONIC CHANGES. SCLEROTIC BLASTIC BONY METASTASES. PERICARDIAL EFFUSION. VOLUME LOSS IN THE LEFT LUNG WITH LEFT PERIHILAR OPACITIES. NO CHANGE FROM THE PRIOR STUDY. NO ACUTE FINDINGS. Head CT 08/07/18 15:20 IMPRESSION: NORMAL BRAIN CT WITHOUT CONTRAST. EVIDENCE OF ACUTE STROKE: NO. Assessment & Plan - Diagnosis (1) Small cell lung cancer Is this a current diagnosis for this admission?: Yes Plan: Most recent treatment was immunotherapy. Currently on hold. Continue steroids. (2) Sepsis Qualifiers: Sepsis type: sepsis due to unspecified organism Qualified Code(s): A41.9 - Sepsis, unspecified organism Is this a current diagnosis for this admission?: Yes Plan: On antibiotics. She appears to be responding to these. (3) Traumatic ecchymosis of right ankle Is this a current diagnosis for this admission?: Yes Plan: I will order X-ray if not recently performed. - Plan Summary Plan Summary: Dr. Ty to return on Saturday. Please call me if needed until then.
[2018-08-09] MEDS: METHYLPREDNISOLONE INJ 125 MG/2 ML SDV IV SCH (12:22)
[2018-08-09] MEDS: KETOROLAC TROMETHAMINE INJ/PF 30 MG/1 ML SDV IV PRN ×2 (12:22→18:45)
[2018-08-09] MEDS: FAMOTIDINE INJ/PF 20 MG/2 ML SDV IV SCH ×2 (12:23→21:32)
--- NOTE | 2018-08-09 13:04 | RADIOLOGY REPORT (SQ) ---
EXAM DESCRIPTION: ANKLE RIGHT COMPLETE COMPLETED DATE/TIME: 08/09/2018 12:11 pm REASON FOR STUDY: trauma with echymoses COMPARISON: None. NUMBER OF VIEWS: Three views. TECHNIQUE: AP, lateral, and oblique radiographic images acquired of the right ankle. LIMITATIONS: None. FINDINGS: MINERALIZATION: Normal. BONES: Acute spiral fracture distal right fibular metaphysis proximal to level of the ankle mortise. JOINTS: Arthritis at the subtalar joints with joint space narrowing. Loose bodies/prominent os husam num at the posterior tibiotalar joint. No disruption of the ankle mortise. SOFT TISSUES: Lateral soft tissue swelling. No radiopaque foreign body or soft tissue gas OTHER: No other significant finding. IMPRESSION: Acute spiral fracture distal right fibular metaphysis. No gross disruption of the ankle mortise. TECHNICAL DOCUMENTATION: JOB ID: [id number] [employer]- All Rights Reserved Reading location - IP/workstation name: [email or web address]
[2018-08-09] MEDS: NORMAL SALINE 1000 ML 1,000 ML IV PRN (15:32)
[2018-08-09 16:17] LABS: VANCOMYCIN,TROUGH 10.6 ug/mL (5.0-20.0)
--- NOTE | 2018-08-09 17:39 | PDOC PROGRESS REPORT ---
Subjective Progress Note for:: 08/09/18 Subjective:: No acute events overnight patient. Patient has significant recovery of her symptoms since admission. On my encounter patient comfortably stating that she had one episode of rectal bleeding due to her hemorrhoids when she was having a bowel movement. Denies any fever shortness of breath, chest pain, nausea, vomiting, diarrhea or any constipation. Still complaining of right ankle pain. Reason For Visit: PNEUMONIA,SEPSIS Physical Exam Vital Signs: Temp Pulse Resp BP Pulse Ox 97.6 F 110 H 19 120/80 94 08/09/18 12:00 08/09/18 12:00 08/09/18 17:00 08/09/18 12:23 08/09/18 16:00 Intake & Output 08/08/18 08/09/18 08/10/18 06:59 06:59 06:59 Intake Total 2930 2000 1850 Output Total 1025 800 200 Balance 1905 1200 1650 Weight 96.7 kg 99.3 kg General appearance: PRESENT: no acute distress, obese Head exam: PRESENT: atraumatic, normocephalic, other - Left facial bruise due to fall prior to admission with improvement Respiratory exam: PRESENT: clear to auscultation kylie. ABSENT: rales, rhonchi, wheezes Cardiovascular exam: PRESENT: RRR. ABSENT: diastolic murmur, rubs, systolic murmur Extremities exam: PRESENT: joint swelling - Right ankle swelling and limited range of motion. Neurovascularly intact.. ABSENT: calf tenderness, clubbing, pedal edema Neurological exam: PRESENT: alert, awake, oriented to person, oriented to place, oriented to time, oriented to situation, CN II-XII grossly intact. ABSENT: motor sensory deficit Results Laboratory Results: 08/09/18 04:23 08/09/18 04:23 08/09/18 08/09/18 04:23 04:23 WBC 6.9 RBC 3.85 Hgb 11.6 L Hct 34.8 L MCV 90 MCH 30.2 MCHC 33.4 RDW 18.5 H Plt Count 88 L Seg Neutrophils % 62.4 Lymphocytes % 26.4 Monocytes % 10.6 Eosinophils % 0.3 Basophils % 0.3 Absolute Neutrophils 4.3 Absolute Lymphocytes 1.8 Absolute Monocytes 0.7 Absolute Eosinophils 0.0 Absolute Basophils 0.0 Sodium 137.2 Potassium 4.1 Chloride 104 Carbon Dioxide 31 H Anion Gap 2 L BUN 21 H Creatinine 0.54 Est GFR ( Amer) > 60 Est GFR (Non-Af Amer) > 60 Glucose 142 H Calcium 7.8 L Magnesium 2.4 H Total Bilirubin 0.7 AST 136 H ALT 103 H Alkaline Phosphatase 223 H Total Protein 5.9 L Albumin 3.2 L 08/07/18 14:55 Troponin I 0.052 Impressions: Chest X-Ray 08/07/18 14:47 IMPRESSION: There is marked opacification in the left base. By history there is neoplasm. Cannot exclude postobstructive atelectasis or consolidation. Abdomen/Pelvis CT 08/07/18 15:20 IMPRESSION: STABLE NONCONTRAST CT OF THE ABDOMEN AND PELVIS. EXTENSIVE SCLEROTIC BONY METASTASES. NO ACUTE FINDINGS. Chest CT 08/07/18 15:20 IMPRESSION: STABLE CHRONIC CHANGES. SCLEROTIC BLASTIC BONY METASTASES. PERICARDIAL EFFUSION. VOLUME LOSS IN THE LEFT LUNG WITH LEFT PERIHILAR OPACITIES. NO CHANGE FROM THE PRIOR STUDY. NO ACUTE FINDINGS. Head CT 08/07/18 15:20 IMPRESSION: NORMAL BRAIN CT WITHOUT CONTRAST. EVIDENCE OF ACUTE STROKE: NO. Ankle X-Ray 08/09/18 00:00 IMPRESSION: Acute spiral fracture distal right fibular metaphysis. No gross disruption of the ankle mortise. Assessment & Plan - Diagnosis (1) Sepsis Qualifiers: Sepsis type: sepsis due to unspecified organism Qualified Code(s): A41.9 - Sepsis, unspecified organism Is this a current diagnosis for this admission?: Yes Plan: Cultures negative so far. Continue empiric IV antibiotics. Downgraded to IMCU. Cultures negative so far unlikely infectious process. Likely immune response to recent chemotherapy. Chart on high-dose steroids by oncologist. (2) Small cell lung cancer Is this a current diagnosis for this admission?: Yes Plan: Oncology on board. Recommendations noted. (3) Elevated liver enzymes Is this a current diagnosis for this admission?: Yes Plan: Improving. Likely secondary to sepsis or complication of chemotherapy. LFTs tomorrow. (4) Closed right ankle fracture Is this a current diagnosis for this admission?: Yes Plan: Due to recent fall prior to this admission. Supportive measures. Orthopedic surgery consulted. Recommendations will be noted.
[2018-08-10] MEDS: VANCOMYCIN HCL 1,250 MG in DEXTROSE 5%-WATER 250 ML IV SCH (02:09)
[2018-08-10] MEDS: IMIPENEM/CILASTATIN SODIUM 500 MG in NORMAL SALINE 100 ML IV SCH ×4 (02:09→21:40)
[2018-08-10] MEDS: HYDROMORPHONE HCL INJ/PF 2 MG/ML AMPULE IV PRN ×4 (04:35→19:40)
[2018-08-10] MEDS: KETOROLAC TROMETHAMINE INJ/PF 30 MG/1 ML SDV IV PRN ×2 (04:35→12:54)
[2018-08-10] MEDS: NORMAL SALINE 1000 ML 1,000 ML IV PRN ×3 (04:35→21:41)
[2018-08-10 04:46] LABS: ABSOLUTE LYMPHOCYTES (AUTO) 1.4 10^3/uL (0.5-4.7); ABSOLUTE MONOCYTES (AUTO) 0.5 10^3/uL (0.1-1.4); ABSOLUTE NEUT (AUTO) 2.5 10^3/uL (1.7-8.2); BASOPHILS % (AUTO) 0.3 % (0-2); EOSINOPHILS % (AUTO) 0.2 % (0-6); HEMATOCRIT 30.5 % (36.0-47.0); HEMOGLOBIN 10.3 g/dL (12.0-15.5); LYMPHOCYTES % (AUTO) 31.1 % (13-45); MEAN CORPUSCULAR HEMOGLOBIN 30.4 pg (27.0-33.4); MEAN CORPUSCULAR HGB CONC 33.8 g/dL (32.0-36.0); MEAN CORPUSCULAR VOLUME 90 fl (80-97); MONOCYTES % (AUTO) 11.5 % (3-13); RED BLOOD COUNT 3.39 10^6/uL (3.72-5.28); RED CELL DISTRIBUTION WIDTH 18.6 % (11.5-14.0); SEGMENTED NEUTROPHILS % (AUTO) 56.9 % (42-78); TOTAL CELLS COUNTED % (AUTO) 100 %; WHITE BLOOD COUNT 4.4 10^3/uL (4.0-10.5)
[2018-08-10 05:00] LABS: ALANINE AMINOTRANSFERASE 92 U/L (9-52); ALBUMIN 3.1 g/dL (3.5-5.0); ALKALINE PHOSPHATASE 226 U/L (38-126); ASPARTATE AMINO TRANSFERASE 98 U/L (14-36); BILIRUBIN,DIRECT 0.3 mg/dL (0.0-0.4); BILIRUBIN,TOTAL 0.5 mg/dL (0.2-1.3); BLOOD UREA NITROGEN 18 mg/dL (7-20); CALCIUM 7.9 mg/dL (8.4-10.2); GLUCOSE 216 mg/dL (75-110); POTASSIUM 4.1 mmol/L (3.6-5.0); TOTAL PROTEIN 5.6 g/dL (6.3-8.2)
[2018-08-10 05:05] LABS: CARBON DIOXIDE 32 mmol/L (22-30); CHLORIDE 105 mmol/L (98-107); SODIUM 137.4 mmol/L (137-145)
[2018-08-10 05:08] LABS: ANION GAP 0 (5-19); PLATELET COUNT 80 10^3/uL (150-450)
[2018-08-10] MEDS: FAMOTIDINE INJ/PF 20 MG/2 ML SDV IV SCH ×2 (09:02→21:40)
[2018-08-10] MEDS: LEVOTHYROXINE SODIUM 0.1 MG TABLET PO SCH (09:02)
[2018-08-10] MEDS: METHYLPREDNISOLONE INJ 125 MG/2 ML SDV IV SCH (09:02)
[2018-08-10] MEDS: GABAPENTIN 300 MG CAPSULE PO SCH ×5 (09:10→21:40)
[2018-08-10] MEDS ORDERED: LOPERAMIDE HCL 2 MG CAPSULE PO PRN (12:13)
[2018-08-10] MEDS ORDERED: ALPRAZOLAM 0.5 MG TABLET PO ONE (15:00)
--- NOTE | 2018-08-10 15:22 | PDOC CONSULTATION ---
Consultation Consult Date: 08/10/18 Consult reason:: Right lateral malleolus ankle fracture History of Present Illness Admission Date/PCP: 08/07/18 16:10 JASMIN BATISTA MD History of Present Illness: QUINTON JAY is a 47 year old female Status post fall back on Saturday complaining of right ankle pain. Patient admitted for other medical issues. She is currently in the ICU being addressed. Despite the pain patient can weight-bear on it. Denies any numbness or tingling or paresthesias. Denies any surgical orthopedic involvement in the extremity or previous fracture. Describes the pain at rest of 1-2 out of 5 and with weightbearing 5 out of 5 acute pain states the pain to be on the lateral aspect of her right ankle. Past Medical History Cardiac Medical History: Denies: Coronary Artery Disease, Myocardial Infarction, Hypertension Pulmonary Medical History: Reports: Pneumonia Denies: Asthma, Bronchitis, Chronic Obstructive Pulmonary Disease (COPD) Neurological Medical History: Denies: Seizures Malignancy Medical History: Reports: Lung Cancer Musculoskeltal Medical History: Reports: Arthritis Psychiatric Medical History: Denies: Depression Hematology: Reports: Anemia Past Surgical History Past Surgical History: Reports: Section, Cholecystectomy, Tonsillec estela, Tubal Ligation, Other - Port placement Social History Lives with: Family Smoking Status: Smoker,Current Status Unk Cigarettes Packs Per Day: 2 Cigars Per Day: 0 Pipes Per Day: 0 Number of Years Smokin Last Time Smoked: JANUARY 2018 Frequency of Alcohol Use: None Hx Recreational Drug Use: No Hx Prescription Drug Abuse: No - Advance Directive Resuscitation Status: Full Code Family History Family History: Malignancy Parental Family History Reviewed: No Children Family History Reviewed: No Sibling(s) Family History Reviewed.: No Medication/Allergy Home Medications: Levothyroxine Sodium [Synthroid 0.1 mg Tablet] 100 mcg PO DAILY 06/23/11 Furosemide [Lasix 20 mg Tablet] 20 mg PO QAM PRN 09/09/12 Acetaminophen [Tylenol] 325 mg PO DAILYP PRN 08/16/15 Chlorpheniramine Maleate [Allergy Relief] 4 mg PO BID 01/02/17 Lubiprostone [Amitiza 24 Mcg Capsule] 24 mcg PO DAILY 05/09/18 Methylprednisolone [Medrol Dosepack (4 mg/Tab) 21 Tab/Dosepak] 4 mg PO ASDIR PRN #21 tab.ds.pk 08/03/18 Gabapentin [Neurontin 300 mg Capsule] 300 mg PO QID 08/07/18 Allergies/Adverse Reactions: latex [Latex] Allergy (Severe, Verified 01/13/18 18:33) Generalized Itching progesterone [Progesterone] Allergy (Severe, Verified 01/13/18 18:33) Chest pain Sulfa (Sulfonamide Antibiotics) Allergy (Severe, Verified 01/13/18 18:33) Hives Penicillins Allergy (Intermediate, Verified 01/13/18 18:33) Hives Review of Systems Review of Systems: Constitutional: [PRESENT: as per HPI. ABSENT: chills, fever(s), headache(s), weight gain, weight loss] Eyes: [ABSENT: visual disturbances] Ears: [ABSENT: hearing changes] Cardiovascular: [ABSENT: chest pain, dyspnea on exertion, edema, orthropnea, palpitations] Respiratory: [ABSENT: cough, hemoptysis] Gastrointestinal: [ABSENT: abdominal pain, constipation, diarrhea, hematemesis, hematochezia, nausea, vomiting] Genitourinary: [ABSENT: dysuria, hematuria] Musculoskeletal: As in HPI Integumentary: [ABSENT: rash, wounds] Neurological: [ABSENT: abnormal gait, abnormal speech, confusion, dizziness, focal weakness, syncope] Psychiatric: [ABSENT: anxiety, depression, homicidal ideation, suicidal ideation] Endocrine: [ABSENT: cold intolerance, heat intolerance, menstrual abnormalities, polydipsia, polyuria] Hematologic/Lymphatic: [ABSENT: easy bleeding, easy bruising, lymphadenopathy] Physical Exam Vital Signs: Temp Pulse Resp BP Pulse Ox 36.2 C 115 H 26 H 149/104 H 95 08/10/18 12:00 08/10/18 12:00 08/10/18 14:00 08/10/18 13:54 08/10/18 14:00 Intake & Output 08/09/18 08/10/18 08/11/18 06:59 06:59 06:59 Intake Total 2000 3500 1200 Output Total 800 1100 300 Balance 1200 2400 900 Weight 99.3 kg 100.4 kg General appearance: PRESENT: no acute distress Adult Front & Back Image: 1 - Swelling with tenderness to palpation over the actual lateral malleolus of her right ankle. Decreased range of motion second to pain. She has no pain over the metatarsals or any other joint in the foot. He has good capillary refill and palpable pulse. No deformity. Good sensation to light touch distally. Results Laboratory Results: 08/10/18 04:29 08/10/18 04:29 08/10/18 08/10/18 04:29 04:29 WBC 4.4 RBC 3.39 L Hgb 10.3 L Hct 30.5 L MCV 90 MCH 30.4 MCHC 33.8 RDW 18.6 H Plt Count 80 L Seg Neutrophils % 56.9 Lymphocytes % 31.1 Monocytes % 11.5 Eosinophils % 0.2 Basophils % 0.3 Absolute Neutrophils 2.5 Absolute Lymphocytes 1.4 Absolute Monocytes 0.5 Absolute Eosinophils 0.0 Absolute Basophils 0.0 Sodium 137.4 Potassium 4.1 Chloride 105 Carbon Dioxide 32 H Anion Gap 0 L BUN 18 Creatinine 0.52 Est GFR ( Amer) > 60 Est GFR (Non-Af Amer) > 60 Glucose 216 H Calcium 7.9 L Magnesium 2.2 Total Bilirubin 0.5 AST 98 H ALT 92 H Alkaline Phosphatase 226 H Total Protein 5.6 L Albumin 3.1 L 08/07/18 14:55 Troponin I 0.052 Impressions: Chest X-Ray 08/07/18 14:47 IMPRESSION: There is marked opacification in the left base. By history there is neoplasm. Cannot exclude postobstructive atelectasis or consolidation. Abdomen/Pelvis CT 08/07/18 15:20 IMPRESSION: STABLE NONCONTRAST CT OF THE ABDOMEN AND PELVIS. EXTENSIVE SCLEROTIC BONY METASTASES. NO ACUTE FINDINGS. Chest CT 08/07/18 15:20 IMPRESSION: STABLE CHRONIC CHANGES. SCLEROTIC BLASTIC BONY METASTASES. PERICARDIAL EFFUSION. VOLUME LOSS IN THE LEFT LUNG WITH LEFT PERIHILAR OPACITIES. NO CHANGE FROM THE PRIOR STUDY. NO ACUTE FINDINGS. Head CT 08/07/18 15:20 IMPRESSION: NORMAL BRAIN CT WITHOUT CONTRAST. EVIDENCE OF ACUTE STROKE: NO. Ankle X-Ray 08/09/18 00:00 IMPRESSION: Acute spiral fracture distal right fibular metaphysis. No gross disruption of the ankle mortise. Status: Image reviewed by me Assessment & Plan - Diagnosis (1) Fx lateral malleolus-closed Qualifiers: Encounter type: initial encounter Fracture alignment: nondisplaced Laterality: right Qualified Code(s): S82.64XA - Nondisplaced fracture of lateral malleolus of right fibula, initial encounter for closed fracture Is this a current diagnosis for this admission?: Yes Plan: 47-year-old female with nondisplaced lateral malleolus ankle fracture of her right ankle. I have placed an order for a cam walking boot so she can be protected weightbearing and use of a walker. When not ambulating please elevate and ice as needed. Discussed with her patient does not require surgery and will just need to protect her weightbearing and let it heal for 6-8 weeks. She can follow-up with us in the office once she is discharged.
[2018-08-10] MEDS ORDERED: LORAZEPAM 0.5 MG TABLET PO PRN (16:12)
--- NOTE | 2018-08-10 16:20 | PDOC PROGRESS REPORT ---
Subjective Progress Note for:: 08/10/18 Subjective:: No acute events overnight. Patient is complaining of anxiety otherwise stated that she is feeling better. Right ankle pain is controlled with the pain medications that he she is receiving. Blood pressure has been a little bit elevated, heart rate has been in low 100s, RR in the 20s, saturating 95% on 5 L FiO2 of 40%. Patient has been afebrile for the last 24 hours. Cultures have been negative times 72 hours. Reason For Visit: PNEUMONIA,SEPSIS Physical Exam Vital Signs: Temp Pulse Resp BP Pulse Ox 97.1 F 115 H 26 H 149/104 H 95 08/10/18 12:00 08/10/18 12:00 08/10/18 14:00 08/10/18 13:54 08/10/18 14:00 Intake & Output 08/09/18 08/10/18 08/11/18 06:59 06:59 06:59 Intake Total 2000 3500 1200 Output Total 800 1100 300 Balance 1200 2400 900 Weight 99.3 kg 100.4 kg General appearance: PRESENT: no acute distress Head exam: PRESENT: atraumatic, normocephalic Respiratory exam: PRESENT: clear to auscultation kylie. ABSENT: rales, rhonchi, wheezes Cardiovascular exam: PRESENT: RRR, tachycardia. ABSENT: diastolic murmur, rubs, systolic murmur Extremities exam: PRESENT: other - Left ankle joint swelling. Tender to palpation with limited range of motion. Neurovascularly intact. Neurological exam: PRESENT: alert, awake, oriented to person, oriented to place, oriented to time, oriented to situation, CN II-XII grossly intact. ABSENT: motor sensory deficit Psychiatric exam: PRESENT: anxious Results Laboratory Results: 08/10/18 04:29 08/10/18 04:29 08/10/18 08/10/18 04:29 04:29 WBC 4.4 RBC 3.39 L Hgb 10.3 L Hct 30.5 L MCV 90 MCH 30.4 MCHC 33.8 RDW 18.6 H Plt Count 80 L Seg Neutrophils % 56.9 Lymphocytes % 31.1 Monocytes % 11.5 Eosinophils % 0.2 Basophils % 0.3 Absolute Neutrophils 2.5 Absolute Lymphocytes 1.4 Absolute Monocytes 0.5 Absolute Eosinophils 0.0 Absolute Basophils 0.0 Sodium 137.4 Potassium 4.1 Chloride 105 Carbon Dioxide 32 H Anion Gap 0 L BUN 18 Creatinine 0.52 Est GFR ( Amer) > 60 Est GFR (Non-Af Amer) > 60 Glucose 216 H Calcium 7.9 L Magnesium 2.2 Total Bilirubin 0.5 AST 98 H ALT 92 H Alkaline Phosphatase 226 H Total Protein 5.6 L Albumin 3.1 L 08/07/18 14:55 Troponin I 0.052 Impressions: Chest X-Ray 08/07/18 14:47 IMPRESSION: There is marked opacification in the left base. By history there is neoplasm. Cannot exclude postobstructive atelectasis or consolidation. Abdomen/Pelvis CT 08/07/18 15:20 IMPRESSION: STABLE NONCONTRAST CT OF THE ABDOMEN AND PELVIS. EXTENSIVE SCLEROTIC BONY METASTASES. NO ACUTE FINDINGS. Chest CT 08/07/18 15:20 IMPRESSION: STABLE CHRONIC CHANGES. SCLEROTIC BLASTIC BONY METASTASES. PERICARDIAL EFFUSION. VOLUME LOSS IN THE LEFT LUNG WITH LEFT PERIHILAR OPACITIES. NO CHANGE FROM THE PRIOR STUDY. NO ACUTE FINDINGS. Head CT 08/07/18 15:20 IMPRESSION: NORMAL BRAIN CT WITHOUT CONTRAST. EVIDENCE OF ACUTE STROKE: NO. Ankle X-Ray 08/09/18 00:00 IMPRESSION: Acute spiral fracture distal right fibular metaphysis. No gross disruption of the ankle mortise. Assessment & Plan - Diagnosis (1) Sepsis Qualifiers: Sepsis type: sepsis due to unspecified organism Qualified Code(s): A41.9 - Sepsis, unspecified organism Is this a current diagnosis for this admission?: Yes Plan: Cultures negative so far. DC vancomycin. Continue imipenem for now. Likely immune response to recent chemotherapy. Placed on high-dose steroids by oncologist. (2) Small cell lung cancer Is this a current diagnosis for this admission?: Yes Plan: Oncology on board. Recommendations noted. (3) Elevated liver enzymes Is this a current diagnosis for this admission?: Yes Plan: Improving. Likely secondary to sepsis or complication of chemotherapy. LFTs tomorrow. (4) Closed right ankle fracture Is this a current diagnosis for this admission?: Yes Plan: Due to recent fall prior to this admission. Supportive measures. Orthopedic surgery consulted. No surgery at this point. Follow-up with Dr. Julia Bojorquez
[2018-08-11] MEDS: HYDROMORPHONE HCL INJ/PF 2 MG/ML AMPULE IV PRN ×6 (00:41→21:34)
[2018-08-11] MEDS: IMIPENEM/CILASTATIN SODIUM 500 MG in NORMAL SALINE 100 ML IV SCH ×4 (03:15→21:02)
[2018-08-11] MEDS: LEVOTHYROXINE SODIUM 0.1 MG TABLET PO SCH (05:48)
[2018-08-11 06:28] LABS: HEMATOCRIT 33.5 % (36.0-47.0); HEMOGLOBIN 11.1 g/dL (12.0-15.5); MEAN CORPUSCULAR HEMOGLOBIN 30.2 pg (27.0-33.4); MEAN CORPUSCULAR HGB CONC 33.3 g/dL (32.0-36.0); MEAN CORPUSCULAR VOLUME 91 fl (80-97); PLATELET COUNT 102 10^3/uL (150-450); RED CELL DISTRIBUTION WIDTH 18.6 % (11.5-14.0); WHITE BLOOD COUNT 6.5 10^3/uL (4.0-10.5)
[2018-08-11 06:40] LABS: ALANINE AMINOTRANSFERASE 94 U/L (9-52); ALBUMIN 3.4 g/dL (3.5-5.0); ALKALINE PHOSPHATASE 232 U/L (38-126); ASPARTATE AMINO TRANSFERASE 130 U/L (14-36); BILIRUBIN,DIRECT 0.6 mg/dL (0.0-0.4); BILIRUBIN,TOTAL 0.8 mg/dL (0.2-1.3); BLOOD UREA NITROGEN 17 mg/dL (7-20); CALCIUM 8.1 mg/dL (8.4-10.2); CARBON DIOXIDE 33 mmol/L (22-30); CHLORIDE 104 mmol/L (98-107); GLUCOSE 97 mg/dL (75-110); POTASSIUM 3.8 mmol/L (3.6-5.0); SODIUM 141.4 mmol/L (137-145)
[2018-08-11 06:41] LABS: ANION GAP 5 (5-19)
[2018-08-11 07:53] LABS: ABSOLUTE MONOCYTES # (MANUAL) 0.7 10^3/uL (0.1-1.4); ABSOLUTE NEUTROPHILS# (MANUAL) 3.8 10^3/uL (1.7-8.2); BAND NEUTROPHILS % (MANUAL) 6 % (3-5); BASOPHILS % (MANUAL) 0 % (0-2); EOSINOPHILS % (MANUAL) 1 % (0-6); LYMPHOCYTES % (MANUAL) 27 % (13-45); METAMYELOCYTES % (MANUAL) 1 % (0); MONOCYTES % (MANUAL) 10 % (3-13); MYELOCYTES % (MANUAL) 1 % (0); NUCLEATED RED BLOOD CELLS 1 /100 WBC (0); SEGMENTED NEUTROPHILS % (MAN) 51 % (42-78); TOTAL CELLS COUNTED 100
[2018-08-11 07:54] LABS: ANISOCYTOSIS 2+; PLATELET COMMENT DECREASED; POLYCHROMASIA SLIGHT; TOXIC GRANULATION SLIGHT; TOXIC VACUOLATION PRESENT
--- NOTE | 2018-08-11 08:43 | PDOC PROGRESS REPORT ---
Subjective Progress Note for:: 08/11/18 Subjective:: Pt doing better but still breathing rapidly w/ tachycardia, pt notes she really is weak and can't do much. Reason For Visit: PNEUMONIA,SEPSIS Physical Exam Vital Signs: Temp Pulse Resp BP Pulse Ox 97.3 F 112 H 18 130/81 H 92 08/11/18 08:00 08/11/18 08:00 08/11/18 08:00 08/11/18 08:00 08/11/18 08:00 Intake & Output 08/10/18 08/11/18 08/12/18 06:59 06:59 06:59 Intake Total 3500 1670 Output Total 1100 1700 Balance 2400 -30 Weight 100.4 kg 100.3 kg General appearance: PRESENT: no acute distress, well-developed, well-nourished Head exam: PRESENT: atraumatic, normocephalic Eye exam: PRESENT: conjunctiva pink, EOMI, PERRLA. ABSENT: scleral icterus Ear exam: PRESENT: normal external ear exam Mouth exam: PRESENT: moist, tongue midline Neck exam: ABSENT: carotid bruit, JVD, lymphadenopathy, thyromegaly Respiratory exam: PRESENT: clear to auscultation kylie. ABSENT: rales, rhonchi, wheezes Cardiovascular exam: PRESENT: RRR. ABSENT: diastolic murmur, rubs, systolic murmur Pulses: PRESENT: normal dorsalis pedis pul Vascular exam: PRESENT: normal capillary refill GI/Abdominal exam: PRESENT: normal bowel sounds, soft. ABSENT: distended, guarding, mass, organolmegaly, rebound, tenderness Rectal exam: PRESENT: deferred Extremities exam: PRESENT: full ROM. ABSENT: calf tenderness, clubbing, pedal edema Neurological exam: PRESENT: alert, awake, oriented to person, oriented to place, oriented to time, oriented to situation, CN II-XII grossly intact. ABSENT: motor sensory deficit Psychiatric exam: PRESENT: appropriate affect, normal mood. ABSENT: homicidal ideation, suicidal ideation Skin exam: PRESENT: dry, intact, warm. ABSENT: cyanosis, rash Results Laboratory Results: 08/11/18 06:20 08/11/18 06:20 08/11/18 08/11/18 06:20 06:20 WBC 6.5 RBC 3.70 L Hgb 11.1 L Hct 33.5 L MCV 91 MCH 30.2 MCHC 33.3 RDW 18.6 H Plt Count 102 L Seg Neutrophils % Not Reportable Lymphocytes % Not Reportable Monocytes % Not Reportable Eosinophils % Not Reportable Basophils % Not Reportable Absolute Neutrophils Not Reportable Absolute Lymphocytes Not Reportable Absolute Monocytes Not Reportable Absolute Eosinophils Not Reportable Absolute Basophils Not Reportable Sodium 141.4 Potassium 3.8 Chloride 104 Carbon Dioxide 33 H Anion Gap 5 BUN 17 Creatinine 0.57 Est GFR ( Amer) > 60 Est GFR (Non-Af Amer) > 60 Glucose 97 Calcium 8.1 L Total Bilirubin 0.8 AST 130 H ALT 94 H Alkaline Phosphatase 232 H Total Protein 6.0 L Albumin 3.4 L 08/07/18 14:55 Troponin I 0.052 Impressions: Chest X-Ray 08/07/18 14:47 IMPRESSION: There is marked opacification in the left base. By history there is neoplasm. Cannot exclude postobstructive atelectasis or consolidation. Abdomen/Pelvis CT 08/07/18 15:20 IMPRESSION: STABLE NONCONTRAST CT OF THE ABDOMEN AND PELVIS. EXTENSIVE SCLEROTIC BONY METASTASES. NO ACUTE FINDINGS. Chest CT 08/07/18 15:20 IMPRESSION: STABLE CHRONIC CHANGES. SCLEROTIC BLASTIC BONY METASTASES. PERICARDIAL EFFUSION. VOLUME LOSS IN THE LEFT LUNG WITH LEFT PERIHILAR OPACITIES. NO CHANGE FROM THE PRIOR STUDY. NO ACUTE FINDINGS. Head CT 08/07/18 15:20 IMPRESSION: NORMAL BRAIN CT WITHOUT CONTRAST. EVIDENCE OF ACUTE STROKE: NO. Ankle X-Ray 08/09/18 00:00 IMPRESSION: Acute spiral fracture distal right fibular metaphysis. No gross disruption of the ankle mortise. Assessment & Plan - Diagnosis (1) Small cell lung cancer Is this a current diagnosis for this admission?: Yes Plan: Has either some mild progression vs immune mediated pneumonitis type picture. Cont IV steroids. will repeat CT chest w/out contrast to reevaluate. Not ready yet for d/c, don't feel lung status is good enough. (2) Sepsis Qualifiers: Sepsis type: sepsis due to unspecified organism Qualified Code(s): A41.9 - Sepsis, unspecified organism Is this a current diagnosis for this admission?: Yes Plan: Improved, vanc d/c'd cont imipenum until we have CT done (3) Elevated liver enzymes Is this a current diagnosis for this admission?: Yes Plan: Improved, 2nd shock liver vs immune repsonse (4) Respiratory failure with hypoxia Qualifiers: Chronicity: acute Qualified Code(s): J96.01 - Acute respiratory failure with hypoxia Is this a current diagnosis for this admission?: Yes Plan: Improving. (5) Thrombocytopenia Is this a current diagnosis for this admission?: Yes Plan: Improved (6) Closed right ankle fracture Is this a current diagnosis for this admission?: Yes (7) Fx lateral malleolus-closed Qualifiers: Encounter type: initial encounter Fracture alignment: nondisplaced Laterality: right Qualified Code(s): S82.64XA - Nondisplaced fracture of lateral malleolus of right fibula, initial encounter for closed fracture Is this a current diagnosis for this admission?: Yes Plan: Reviewed ortho notes, told nursing to place boot orders as needed, needs PT to fit and work with her (8) Physical deconditioning Is this a current diagnosis for this admission?: Yes Plan: Needs PT eval and for them to work with her - Time Time Spent with patient: 35 or more minutes - Inpatient Certification Based on my medical assessment, after consideration of the patient's comorbidities, presenting symptoms, or acuity I expect that the services needed warrant INPATIENT care.: Yes I certify that my determination is in accordance with my understanding of Medicare's requirements for reasonable and necessary INPATIENT services [42 CFR 412.3e].: Yes Medical Necessity: Need For Continuous Telemetry Monitoring, Need for Nebulizer Therapy and Monitoring of Response, Need for IV Antibiotics, Risk of Complication if Not Cared For in Hospital, Risk of Diagnosis Which Will Require Inpatient Eval/Care/Monitoring
[2018-08-11] MEDS: FAMOTIDINE INJ/PF 20 MG/2 ML SDV IV SCH ×2 (09:16→21:35)
[2018-08-11] MEDS: GABAPENTIN 300 MG CAPSULE PO SCH ×4 (09:16→21:35)
[2018-08-11] MEDS: METHYLPREDNISOLONE INJ 125 MG/2 ML SDV IV SCH (09:16)
[2018-08-11] MEDS ORDERED: LUBIPROSTONE 24 MCG CAPSULE PO SCH (10:00)
[2018-08-11 11:06] LABS: PATH REVIEW PATHOLOGIST REVIEWED
--- NOTE | 2018-08-11 13:02 | Physician Advisory Note ---
Physician Advisor ProgressNote .: Pursuant to the plan for Zuleima Culp, I have reviewed the medical record for this patient. Physician Advisor Statement: ED dr documented pt "lethargic", "minimally responsive"; ED nurse assessment 3 hrs later states GCS 15 & pt alert. Pt developed hypotension w/MAP 60s briefly on day of adm, but this appears to have responded nicely to 2L IVF bolus in ED, & no pressors needed. Please consider documenting, if you agree: 1. "Sepsis was considered, but has been ruled out' (& then may take that out of the list of acute dx.s, just mention the consideration/tx/rule out in DCS) vs. "Sepsis, due to ____, evidenced by [organ dysfunction that is due to sepsis rather than due to other issue)" 2. "Altered mental status on adm, due to acute metabolic encephalopathy due to "[Ac Resp Failure? sepsis? ...] vs "Altered mental status on adm, due to toxic encephalopathy due to [Rx]" vs. "Altered level of consciousness: [lethargy/drowsiness/total GCS 13-15, vs stupor/obtundation/total GCS 9-12, ...]" 3. "Acute on chronic Hypoxemic Resp Failure, likely due to [pneumonitis? acute bronchitis? ...] ; evidence =pt usually needs 3-4L O2 but on adm had labored breathing/accessory muscle use, AMS, needed 50% FiO2 w/Bipap, ..." vs. "Chronic Hypoxemic Resp Failure, pt usually needs 3-4L O2 at baseline" vs. ? 4. "Ac hyponatremia, likely due to [lung CA? dehydration? ...} 5. Likely cause of thrombocytopenia [chemotx? sepsis? ..] 6. Please specify the 1 most likely cause of transaminitis by time of d/c. Thanks! MARISA
--- NOTE | 2018-08-11 14:43 | PDOC PROGRESS REPORT ---
Subjective Progress Note for:: 08/11/18 Subjective:: No acute events overnight. Patient is stating that she is feeling better since admission but is still feeling very weak. Her diarrhea has resolved and right ankle pain is also improving. She has been tacky, and tachypneic, saturating in the low 90s on 5 L FiO2 of 50%. She had been afebrile for 48 hours and her cultures from admission has been negative. Physical examination patient still tachypneic and seems in mild distress. Denying any chest pain, fever, abdominal pain, nausea, vomiting, or constipation. Reason For Visit: PNEUMONIA,SEPSIS Physical Exam Vital Signs: Temp Pulse Resp BP Pulse Ox 97.3 F 118 H 16 138/100 H 91 L 08/11/18 12:00 08/11/18 12:00 08/11/18 13:00 08/11/18 12:47 08/11/18 14:00 Intake & Output 08/10/18 08/11/18 08/12/18 06:59 06:59 06:59 Intake Total 3500 1770 220 Output Total 1100 1700 650 Balance 2400 70 -430 Weight 100.4 kg 100.3 kg General appearance: PRESENT: mild distress, obese Head exam: PRESENT: atraumatic, normocephalic Respiratory exam: PRESENT: clear to auscultation kylie. ABSENT: rales, rhonchi, wheezes Cardiovascular exam: PRESENT: tachycardia. ABSENT: diastolic murmur, rubs, systolic murmur GI/Abdominal exam: PRESENT: normal bowel sounds, soft. ABSENT: distended, guarding, mass, organolmegaly, rebound, tenderness Neurological exam: PRESENT: alert, awake, oriented to person, oriented to place, oriented to time, oriented to situation, CN II-XII grossly intact. ABSENT: motor sensory deficit Results Laboratory Results: 08/11/18 06:20 08/11/18 06:20 08/11/18 08/11/18 06:20 06:20 WBC 6.5 RBC 3.70 L Hgb 11.1 L Hct 33.5 L MCV 91 MCH 30.2 MCHC 33.3 RDW 18.6 H Plt Count 102 L Seg Neutrophils % Not Reportable Lymphocytes % Not Reportable Monocytes % Not Reportable Eosinophils % Not Reportable Basophils % Not Reportable Absolute Neutrophils Not Reportable Absolute Lymphocytes Not Reportable Absolute Monocytes Not Reportable Absolute Eosinophils Not Reportable Absolute Basophils Not Reportable Sodium 141.4 Potassium 3.8 Chloride 104 Carbon Dioxide 33 H Anion Gap 5 BUN 17 Creatinine 0.57 Est GFR ( Amer) > 60 Est GFR (Non-Af Amer) > 60 Glucose 97 Calcium 8.1 L Total Bilirubin 0.8 AST 130 H ALT 94 H Alkaline Phosphatase 232 H Total Protein 6.0 L Albumin 3.4 L 08/07/18 14:55 Troponin I 0.052 Impressions: Chest X-Ray 08/07/18 14:47 IMPRESSION: There is marked opacification in the left base. By history there is neoplasm. Cannot exclude postobstructive atelectasis or consolidation. Abdomen/Pelvis CT 08/07/18 15:20 IMPRESSION: STABLE NONCONTRAST CT OF THE ABDOMEN AND PELVIS. EXTENSIVE SCLEROTIC BONY METASTASES. NO ACUTE FINDINGS. Chest CT 08/07/18 15:20 IMPRESSION: STABLE CHRONIC CHANGES. SCLEROTIC BLASTIC BONY METASTASES. PERICARDIAL EFFUSION. VOLUME LOSS IN THE LEFT LUNG WITH LEFT PERIHILAR OPACITIES. NO CHANGE FROM THE PRIOR STUDY. NO ACUTE FINDINGS. Head CT 08/07/18 15:20 IMPRESSION: NORMAL BRAIN CT WITHOUT CONTRAST. EVIDENCE OF ACUTE STROKE: NO. Ankle X-Ray 08/09/18 00:00 IMPRESSION: Acute spiral fracture distal right fibular metaphysis. No gross disruption of the ankle mortise. Assessment & Plan - Diagnosis (1) Acute and chronic respiratory failure Is this a current diagnosis for this admission?: Yes Plan: Improving. Patient does not use oxygen at home but on admission was seen to be in respiratory distress and was started BiPAP. (2) SIRS (systemic inflammatory response syndrome) Is this a current diagnosis for this admission?: Yes Plan: Likely immune response to recent chemotherapy. Placed on high-dose steroids by oncologist. (3) Sepsis Qualifiers: Sepsis type: sepsis due to unspecified organism Qualified Code(s): A41.9 - Sepsis, unspecified organism Is this a current diagnosis for this admission?: Yes Plan: Sepsis was considered but was ruled out. Cultures negative. DC vancomycin. Continue imipenem for now. (4) Small cell lung cancer Is this a current diagnosis for this admission?: Yes Plan: Oncology on board. Recommendations noted. (5) Elevated liver enzymes Is this a current diagnosis for this admission?: Yes Plan: Improving. Likely immune response versus shock liver. LFTs tomorrow. (6) Altered mental state Is this a current diagnosis for this admission?: Yes Plan: Resolved. Altered mental status on admission due to metabolic encephalopathy likely due to SIRS/complication of recent chemotherapy. (7) Fx lateral malleolus-closed Qualifiers: Encounter type: initial encounter Fracture alignment: nondisplaced Laterality: right Qualified Code(s): S82.64XA - Nondisplaced fracture of lateral malleolus of right fibula, initial encounter for closed fracture Is this a current diagnosis for this admission?: Yes Plan: Consulted. No surgical intervention at this point needed. Supportive measures and physical therapy. (8) Thrombocytopenia Is this a current diagnosis for this admission?: Yes Plan: Improving. Likely due to recent chemotherapy. Monitor for any sign of bleeding. CMP tomorrow.
--- NOTE | 2018-08-11 15:25 | RADIOLOGY REPORT (SQ) ---
EXAM DESCRIPTION: CT CHEST WITHOUT COMPLETED DATE/TIME: 08/11/2018 2:48 pm REASON FOR STUDY: SHORTNESS OF BREATH COMPARISON: 08/07/2018 08/03/2018 05/15/2018 TECHNIQUE: CT scan performed of the chest without intravenous contrast. Images reviewed with lung, soft tissue and bone windows. Reconstructed coronal and sagittal MPR images reviewed. All images st ored on PACS. All CT scanners at this facility use dose modulation, iterative reconstruction, and/or weight based d osing when appropriate to reduce radiation dose to as low as reasonably achievable (ALARA). [facility]: Dose Right [facility]: CareDose [facility]: Dose Right [facility]: Teradose 4D [facility]: Smart Area 1 Security RADIATION DOSE: CT Rad equipment meets quality standard of care and radiation dose reduction techniq ues were employed. CTDIvol: 17.1 mGy. DLP: 640 mGy-cm. mGy. LIMITATIONS: No technical limitations. FINDINGS: LUNGS AND PLEURA: Persistent opacification in the left lower lobe, slightly increased. Re duced volume in the left lung generally. Small right pleural effusion. HILAR AND MEDIASTINAL STRUCTURES: Narrowing of the left mainstem bronchus. Left hilar mass is slight ly less prominent. HEART AND VASCULAR STRUCTURES: Large pericardial effusion. About 2 cm in depth. Has increased since the previous study. UPPER ABDOMEN: No significant findings. Limited exam. THYROID AND OTHER SOFT TISSUES: No masses. No adenopathy. BONES: Sclerotic osseous metastases. HARDWARE: None in the chest. OTHER: No other significant findings. IMPRESSION: Increasing pericardial effusion. Slightly increased opacification in the left base. At electasis versus pneumonia. Mediastinal/left hilar mass not well defined in the absence of contrast. Osseous metastases. TECHNICAL DOCUMENTATION: JOB ID: [id number] Quality ID # [id number]: Final reports with documentation of one or more dose reduction techniques (e.g., Au tomated exposure control, adjustment of the mA and/or kV according to patient size, use of iterative reconstruction technique) 2010 [employer]- All Rights Reserved Reading location - IP/workstation name: [email or web address]
[2018-08-11] MEDS ORDERED: METOPROLOL SUCCINATE 50 MG TAB.SR.24H PO ONE (20:55)
[2018-08-11] MEDS ORDERED: METOPROLOL TARTRATE PF/INJ 5 MG/5 ML SDV IV ONE (20:55)
[2018-08-12] MEDS: KETOROLAC TROMETHAMINE INJ/PF 30 MG/1 ML SDV IV PRN (00:41)
[2018-08-12] MEDS: HYDROMORPHONE HCL INJ/PF 2 MG/ML AMPULE IV PRN ×5 (01:40→20:23)
[2018-08-12] MEDS: IMIPENEM/CILASTATIN SODIUM 500 MG in NORMAL SALINE 100 ML IV SCH ×4 (03:01→20:23)
[2018-08-12] MEDS: LEVOTHYROXINE SODIUM 0.1 MG TABLET PO SCH (05:55)
[2018-08-12 06:25] LABS: HEMATOCRIT 33.8 % (36.0-47.0); HEMOGLOBIN 11.3 g/dL (12.0-15.5); MEAN CORPUSCULAR HEMOGLOBIN 30.2 pg (27.0-33.4); MEAN CORPUSCULAR HGB CONC 33.4 g/dL (32.0-36.0); MEAN CORPUSCULAR VOLUME 90 fl (80-97); PLATELET COUNT 103 10^3/uL (150-450); RED BLOOD COUNT 3.74 10^6/uL (3.72-5.28); RED CELL DISTRIBUTION WIDTH 18.9 % (11.5-14.0); WHITE BLOOD COUNT 7.6 10^3/uL (4.0-10.5)
[2018-08-12 06:37] LABS: ABSOLUTE LYMPHOCYTES# (MANUAL) 2.7 10^3/uL (0.5-4.7); ABSOLUTE NEUTROPHILS# (MANUAL) 3.9 10^3/uL (1.7-8.2); ANISOCYTOSIS 2+; BAND NEUTROPHILS % (MANUAL) 2 % (3-5); BASOPHILS % (MANUAL) 0 % (0-2); EOSINOPHILS % (MANUAL) 1 % (0-6); LYMPHOCYTES % (MANUAL) 35 % (13-45); MONOCYTES % (MANUAL) 13 % (3-13); POLYCHROMASIA SLIGHT; SEGMENTED NEUTROPHILS % (MAN) 49 % (42-78); TOTAL CELLS COUNTED 100; TOXIC GRANULATION 1+
[2018-08-12 06:38] LABS: PLATELET COMMENT ADEQUATE; PLATELET LARGE PRESENT; SCHISTOCYTES SLIGHT
[2018-08-12 07:22] LABS: ALANINE AMINOTRANSFERASE 112 U/L (9-52); ALBUMIN 3.4 g/dL (3.5-5.0); ALKALINE PHOSPHATASE 256 U/L (38-126); ANION GAP 6 (5-19); ASPARTATE AMINO TRANSFERASE 159 U/L (14-36); BILIRUBIN,DIRECT 0.9 mg/dL (0.0-0.4); BILIRUBIN,TOTAL 1.2 mg/dL (0.2-1.3); BLOOD UREA NITROGEN 15 mg/dL (7-20); CALCIUM 8.3 mg/dL (8.4-10.2); CARBON DIOXIDE 35 mmol/L (22-30); CHLORIDE 101 mmol/L (98-107); GLUCOSE 101 mg/dL (75-110); POTASSIUM 3.9 mmol/L (3.6-5.0); SODIUM 141.7 mmol/L (137-145); TOTAL PROTEIN 6.1 g/dL (6.3-8.2)
--- NOTE | 2018-08-12 08:52 | PDOC PROGRESS REPORT ---
Subjective Progress Note for:: 08/12/18 Subjective:: Patient still feels short of breath, but she looks very anxious today, she is not yet on her home anxiety medications or on her home long-acting pain medications. We will make those changes today. She did get up with physical therapy and we want to continue that today. Reason For Visit: PNEUMONIA,SEPSIS Physical Exam Vital Signs: Temp Pulse Resp BP Pulse Ox 97.7 F 103 H 14 142/92 H 96 08/12/18 08:00 08/12/18 08:00 08/12/18 08:00 08/12/18 08:00 08/12/18 08:00 Intake & Output 08/11/18 08/12/18 08/13/18 06:59 06:59 06:59 Intake Total 1770 540 Output Total 1700 2000 Balance 70 -1460 Weight 100.3 kg 99.9 kg General appearance: PRESENT: no acute distress, well-developed, well-nourished Head exam: PRESENT: atraumatic, normocephalic Eye exam: PRESENT: conjunctiva pink, EOMI, PERRLA. ABSENT: scleral icterus Ear exam: PRESENT: normal external ear exam Mouth exam: PRESENT: moist, tongue midline Neck exam: ABSENT: carotid bruit, JVD, lymphadenopathy, thyromegaly Respiratory exam: PRESENT: clear to auscultation kylie. ABSENT: rales, rhonchi, wheezes Cardiovascular exam: PRESENT: RRR. ABSENT: diastolic murmur, rubs, systolic murmur Pulses: PRESENT: normal dorsalis pedis pul Vascular exam: PRESENT: normal capillary refill GI/Abdominal exam: PRESENT: normal bowel sounds, soft. ABSENT: distended, guarding, mass, organolmegaly, rebound, tenderness Rectal exam: PRESENT: deferred Extremities exam: PRESENT: full ROM. ABSENT: calf tenderness, clubbing, pedal edema Neurological exam: PRESENT: alert, awake, oriented to person, oriented to place, oriented to time, oriented to situation, CN II-XII grossly intact. ABSENT: motor sensory deficit Psychiatric exam: PRESENT: appropriate affect, normal mood. ABSENT: homicidal ideation, suicidal ideation Skin exam: PRESENT: dry, intact, warm. ABSENT: cyanosis, rash Results Laboratory Results: 08/12/18 06:04 08/12/18 06:04 08/12/18 08/12/18 06:04 06:04 WBC 7.6 RBC 3.74 Hgb 11.3 L Hct 33.8 L MCV 90 MCH 30.2 MCHC 33.4 RDW 18.9 H Plt Count 103 L Seg Neutrophils % Not Reportable Lymphocytes % Not Reportable Monocytes % Not Reportable Eosinophils % Not Reportable Basophils % Not Reportable Absolute Neutrophils Not Reportable Absolute Lymphocytes Not Reportable Absolute Monocytes Not Reportable Absolute Eosinophils Not Reportable Absolute Basophils Not Reportable Sodium 141.7 Potassium 3.9 Chloride 101 Carbon Dioxide 35 H Anion Gap 6 BUN 15 Creatinine 0.60 Est GFR ( Amer) > 60 Est GFR (Non-Af Amer) > 60 Glucose 101 Calcium 8.3 L Magnesium 2.1 Total Bilirubin 1.2 AST 159 H ALT 112 H Alkaline Phosphatase 256 H Total Protein 6.1 L Albumin 3.4 L 08/07/18 14:55 Troponin I 0.052 Impressions: Chest X-Ray 08/07/18 14:47 IMPRESSION: There is marked opacification in the left base. By history there is neoplasm. Cannot exclude postobstructive atelectasis or consolidation. Abdomen/Pelvis CT 08/07/18 15:20 IMPRESSION: STABLE NONCONTRAST CT OF THE ABDOMEN AND PELVIS. EXTENSIVE SCLEROTIC BONY METASTASES. NO ACUTE FINDINGS. Head CT 08/07/18 15:20 IMPRESSION: NORMAL BRAIN CT WITHOUT CONTRAST. EVIDENCE OF ACUTE STROKE: NO. Ankle X-Ray 08/09/18 00:00 IMPRESSION: Acute spiral fracture distal right fibular metaphysis. No gross disruption of the ankle mortise. Chest CT 08/11/18 09:48 IMPRESSION: Increasing pericardial effusion. Slightly increased opacification in the left base. Atelectasis versus pneumonia. Mediastinal/left hilar mass not well defined in the absence of contrast. Osseous metastases. Assessment & Plan - Diagnosis (1) Small cell lung cancer Is this a current diagnosis for this admission?: Yes Plan: Possible immune mediated reaction, continue with IV steroids, she will need a prolonged steroid taper on discharge but for right now continue with IV steroids. (2) Sepsis Qualifiers: Sepsis type: sepsis due to unspecified organism Qualified Code(s): A41.9 - Sepsis, unspecified organism Is this a current diagnosis for this admission?: Yes Plan: Improved, continue with current antibiotic regimen for another 24 hours (3) Elevated liver enzymes Is this a current diagnosis for this admission?: Yes Plan: Improved, could be shock liver versus immune mediated response (4) Respiratory failure with hypoxia Qualifiers: Chronicity: acute Qualified Code(s): J96.01 - Acute respiratory failure with hypoxia Is this a current diagnosis for this admission?: Yes Plan: Could be related to progression of disease versus pneumonia versus immune mediated response, all these are being managed currently. (5) Thrombocytopenia Is this a current diagnosis for this admission?: Yes Plan: Improved (6) Closed right ankle fracture Qualifiers: Encounter type: subsequent encounter Is this a current diagnosis for this admission?: Yes Plan: Boot placed continue with physical therapy (7) Physical deconditioning Is this a current diagnosis for this admission?: Yes Plan: Continue physical therapy - Time Time Spent with patient: 35 or more minutes - Inpatient Certification Based on my medical assessment, after consideration of the patient's comorbidities, presenting symptoms, or acuity I expect that the services needed warrant INPATIENT care.: Yes I certify that my determination is in accordance with my understanding of Medicare's requirements for reasonable and necessary INPATIENT services [42 CFR 412.3e].: Yes Medical Necessity: Need For Continuous Telemetry Monitoring, Need for Nebulizer Therapy and Monitoring of Response, Need for IV Antibiotics, Risk of Complication if Not Cared For in Hospital
[2018-08-12] MEDS: OXYCODONE HCL SR 40 MG TABLET PO SCH ×2 (09:56→22:00)
[2018-08-12] MEDS: ALPRAZOLAM 0.5 MG TABLET PO PRN (09:56)
[2018-08-12] MEDS: METHYLPREDNISOLONE INJ 125 MG/2 ML SDV IV SCH (09:57)
[2018-08-12] MEDS: GABAPENTIN 300 MG CAPSULE PO SCH ×4 (09:57→22:00)
[2018-08-12] MEDS: FAMOTIDINE INJ/PF 20 MG/2 ML SDV IV SCH ×2 (09:57→22:01)
[2018-08-12] MEDS ORDERED: FUROSEMIDE 20 MG TABLET PO PRN (12:30)
[2018-08-12] MEDS: NORMAL SALINE 1000 ML 1,000 ML IV PRN (16:04)
--- NOTE | 2018-08-12 21:38 | XCELERA REPORT ---
[address] [address] Transthoracic Echocardiogram Report Name: QUINTON JAY Age: 47 yrs Gender: Female : 1970 Patient Status: Inpatient Patient Location: ICU^601^A Study Date: 08/11/2018 07:47 PM Height: 63 in Weight: 221 lb BSA: 2.0 m2 Procedure: A two-dimensional transthoracic echocardiogram with color flow and Doppler was performed. The study was technically difficult with many images being suboptimal in quality. Reason For Study: PERICARDIAL EFFUSION History: PERICARDIAL EFFUSION. Ordering Physician: JASMIN BATISTA Performed By: Marcie Manning Interpretation Summary The left ventricle is normal in size. There is mild concentric left ventricular hypertrophy. LV EF is > than 65% The left ventricular ejection fraction is normal. LV diastolic function not assessed. The left ventricular wall motion is normal. The right ventricle is grossly normal size. The right ventricle is not well visualized secondary to technical limitations The right atrium is normal. The left atrial size is normal. There is no evidence of mitral valve prolapse. There is no vegetation seen on the mitral valve. There is no mitral valve stenosis. There is a trace amount of mitral regurgitation There is no aortic valvular vegetation. There is no aortic valve stenosis There is no LVOT obstruction. No aortic regurgitation is present. There is no tricuspid stenosis. There is a trace amount of tricuspid regurgitation RVSP is 30 to 35 mm of Hg, with RA mean of 5 to 10.There is early mild pulmonary hypertension. The aortic root is normal size. The inferior vena cava appeared normal and decreased > 50% with respiration (RAP 5-10 mmHg) Moderate to large pericardial effusion. Not very clear ,but there may be doppler and RA diastolic collapse indicating a state of subclinical tamponade.Corelate clinically. MMode/2D Measurements & Calculations RVDd: 3.1 cm LVIDd: 4.2 cm FS: 37.3 % Ao root diam: 3.0 cm IVSd: 1.1 cm LVIDs: 2.6 cm EDV(Teich): 79.8 ml Ao root area: 7.3 cm2 LVPWd: 1.3 cm ESV(Teich): 25.8 ml LA dimension: 3.4 cm EF(Teich): 67.7 % Doppler Measurements & Calculations MV E max mohamud: MV P1/2t max mohamud: Ao V2 max: LV V1 max P.2 cm/sec 133.9 cm/sec 144.9 cm/sec 5.2 mmHg MV A max mohamud: MV P1/2t: 48.5 msec Ao max PG: LV V1 max: 121.4 cm/sec MVA(P1/2t): 4.5 cm2 8.5 mmHg 113.5 cm/sec MV E/A: 0.99 MV dec slope: 808.7 cm/sec2 MV dec time: 0.15 sec TV V2 max: PA V2 max: TR max mohamud: MV P1/2t-pr_phl: 87.5 cm/sec 69.6 cm/sec 249.8 cm/sec 51.4 msec TV max P.1 mmHgPA max P.9 mmHg TR max P.0 mmHg Left Ventricle The left ventricle is normal in size. There is mild concentric left ventricular hypertrophy. LV EF is > than 65%. The left ventricular ejection fraction is normal. LV diastolic function not assessed. The left ventricular wall motion is normal. Right Ventricle The right ventricle is grossly normal size. The right ventricle is not well visualized secondary to technical limitations. Atria The right atrium is normal. The left atrial size is normal. Mitral Valve There is no evidence of mitral valve prolapse. There is no vegetation seen on the mitral valve. There is no mitral valve stenosis. There is a trace amount of mitral regurgitation. Aortic Valve There is no aortic valvular vegetation. There is no aortic valve stenosis. There is no LVOT obstruction. No aortic regurgitation is present. Tricuspid Valve There is no tricuspid stenosis. There is a trace amount of tricuspid regurgitation. RVSP is 30 to 35 mm of Hg, with RA mean of 5 to 10.There is early mild pulmonary hypertension. Pulmonic Valve There is no pulmonic valvular stenosis. There is no pulmonic valvular regurgitation. Great Vessels The aortic root is normal size. The inferior vena cava appeared normal and decreased > 50% with respiration (RAP 5-10 mmHg). Effusions Moderate to large pericardial effusion. Not very clear ,but there may be doppler and RA diastolic collapse indicating a state of subclinical tamponade.Corelate clinically. : JASMIN BATISTA > Bia Barnes
[2018-08-12] MEDS: CARVEDILOL 12.5 MG TABLET PO SCH (22:00)
[2018-08-13] MEDS: HYDROMORPHONE HCL INJ/PF 2 MG/ML AMPULE IV PRN ×5 (00:44→19:24)
[2018-08-13] MEDS: IMIPENEM/CILASTATIN SODIUM 500 MG in NORMAL SALINE 100 ML IV SCH ×4 (02:07→20:31)
[2018-08-13] MEDS: IPRATROPIUM/ALBUTEROL 0.5-2.5 MG/3 ML AMPUL NEB PRN (03:59)
[2018-08-13] MEDS: LEVOTHYROXINE SODIUM 0.1 MG TABLET PO SCH (05:01)
--- NOTE | 2018-08-13 08:42 | PDOC PROGRESS REPORT ---
Subjective Progress Note for:: 08/13/18 Subjective:: Patient did get up with the help of her father, however she felt like she almost fell. She is having pain this morning. Still anxious. Reason For Visit: PNEUMONIA,SEPSIS Physical Exam Vital Signs: Temp Pulse Resp BP Pulse Ox 98.1 F 95 20 130/86 H 98 08/13/18 07:26 08/13/18 07:26 08/13/18 07:26 08/13/18 07:26 08/13/18 07:26 Intake & Output 08/12/18 08/13/18 08/14/18 06:59 06:59 06:59 Intake Total 640 3195 Output Total 2000 Balance -1360 3195 Weight 99.9 kg 100.2 kg General appearance: PRESENT: no acute distress, well-developed, well-nourished Head exam: PRESENT: atraumatic, normocephalic Eye exam: PRESENT: conjunctiva pink, EOMI, PERRLA. ABSENT: scleral icterus Ear exam: PRESENT: normal external ear exam Mouth exam: PRESENT: moist, tongue midline Neck exam: ABSENT: carotid bruit, JVD, lymphadenopathy, thyromegaly Respiratory exam: PRESENT: clear to auscultation kylie. ABSENT: rales, rhonchi, wheezes Cardiovascular exam: PRESENT: RRR. ABSENT: diastolic murmur, rubs, systolic murmur Pulses: PRESENT: normal dorsalis pedis pul Vascular exam: PRESENT: normal capillary refill GI/Abdominal exam: PRESENT: normal bowel sounds, soft. ABSENT: distended, guarding, mass, organolmegaly, rebound, tenderness Rectal exam: PRESENT: deferred Extremities exam: PRESENT: full ROM. ABSENT: calf tenderness, clubbing, pedal edema Neurological exam: PRESENT: alert, awake, oriented to person, oriented to place, oriented to time, oriented to situation, CN II-XII grossly intact. ABSENT: motor sensory deficit Psychiatric exam: PRESENT: appropriate affect, normal mood. ABSENT: homicidal ideation, suicidal ideation Skin exam: PRESENT: dry, intact, warm. ABSENT: cyanosis, rash Results Laboratory Results: 08/12/18 06:04 08/12/18 06:04 08/07/18 16:15 Blood Blood Culture - Final NO GROWTH IN 5 DAYS 08/07/18 14:55 Blood Blood Culture - Final NO GROWTH IN 5 DAYS 08/07/18 14:55 Troponin I 0.052 Impressions: Chest X-Ray 08/07/18 14:47 IMPRESSION: There is marked opacification in the left base. By history there is neoplasm. Cannot exclude postobstructive atelectasis or consolidation. Abdomen/Pelvis CT 08/07/18 15:20 IMPRESSION: STABLE NONCONTRAST CT OF THE ABDOMEN AND PELVIS. EXTENSIVE SCLEROTIC BONY METASTASES. NO ACUTE FINDINGS. Head CT 08/07/18 15:20 IMPRESSION: NORMAL BRAIN CT WITHOUT CONTRAST. EVIDENCE OF ACUTE STROKE: NO. Ankle X-Ray 08/09/18 00:00 IMPRESSION: Acute spiral fracture distal right fibular metaphysis. No gross disruption of the ankle mortise. Chest CT 08/11/18 09:48 IMPRESSION: Increasing pericardial effusion. Slightly increased opacification in the left base. Atelectasis versus pneumonia. Mediastinal/left hilar mass not well defined in the absence of contrast. Osseous metastases. Assessment & Plan - Diagnosis (1) Small cell lung cancer Is this a current diagnosis for this admission?: Yes Plan: Continue to monitor, plan to continue treatment as an outpatient (2) Sepsis Qualifiers: Sepsis type: sepsis due to unspecified organism Qualified Code(s): A41.9 - Sepsis, unspecified organism Is this a current diagnosis for this admission?: Yes Plan: Now resolved (3) Elevated liver enzymes Is this a current diagnosis for this admission?: Yes Plan: Improving secondary to immunotherapy most likely versus shock liver (4) Respiratory failure with hypoxia Qualifiers: Chronicity: acute Qualified Code(s): J96.01 - Acute respiratory failure with hypoxia Is this a current diagnosis for this admission?: Yes Plan: Improving, probably related to immunotherapy effect on the lung versus progression of disease, continue steroids. (5) Thrombocytopenia Is this a current diagnosis for this admission?: Yes Plan: Improving, continue to follow secondary to treatment (6) Closed right ankle fracture Qualifiers: Encounter type: subsequent encounter Is this a current diagnosis for this admission?: Yes Plan: Boot placed, continue with physical therapy (7) Physical deconditioning Is this a current diagnosis for this admission?: Yes Plan: Physical therapy today (8) Pericardial effusion Is this a current diagnosis for this admission?: Yes Plan: Thus far no clinical signs of tamponade, echo was of poor quality, asked nursing to evaluate patient for this. She will get up and move around and see how she does, if we do have clinical signs of tamponade we will need to consider chavez sferring her to [place] for consideration of pericardial window. But I think this is unlikely because she has had this pericardial effusion now for over 6 months. I do not believe it significantly changed over the last 3-4 months. - Time Time Spent with patient: 35 or more minutes - Inpatient Certification Based on my medical assessment, after consideration of the patient's comorbidities, presenting symptoms, or acuity I expect that the services needed warrant INPATIENT care.: Yes I certify that my determination is in accordance with my understanding of Medicare's requirements for reasonable and necessary INPATIENT services [42 CFR 412.3e].: Yes
[2018-08-13] MEDS: ALPRAZOLAM 0.5 MG TABLET PO PRN ×2 (08:51→21:45)
[2018-08-13] MEDS: OXYCODONE HCL SR 40 MG TABLET PO SCH ×2 (09:38→21:45)
[2018-08-13] MEDS: CARVEDILOL 12.5 MG TABLET PO SCH ×2 (09:38→21:45)
[2018-08-13] MEDS: GABAPENTIN 300 MG CAPSULE PO SCH ×4 (09:38→21:45)
[2018-08-13] MEDS: METHYLPREDNISOLONE INJ 125 MG/2 ML SDV IV SCH (09:40)
[2018-08-13] MEDS: FAMOTIDINE INJ/PF 20 MG/2 ML SDV IV SCH ×2 (09:40→21:45)
[2018-08-13] MEDS ORDERED: HYDROMORPHONE HCL INJ/PF 2 MG/ML AMPULE IV ONE (09:45)
--- NOTE | 2018-08-13 12:54 | PDOC PROGRESS REPORT ---
Subjective Progress Note for:: 08/13/18 Subjective:: No acute events overnight, she is still complaining of generalized pain worse in the right lower extremity, she is feeling better but still weak. Was not able to get up on her own. She is denying any fever, chills, nausea, vomiting, diarrhea, constipation or any urinary symptoms. Systolic blood pressure ranging from 150-111, afebrile,, saturating 97% on 5 L NC. WBC, 7.6, hemoglobin, 11.3, platelets 103. CMP within normal limits, AST 159, ALT 112, alkaline phosphatase 256. Blood cultures from admission remains negative. Reason For Visit: PNEUMONIA,SEPSIS Physical Exam Vital Signs: Temp Pulse Resp BP Pulse Ox 98.1 F 96 17 130/86 H 97 08/13/18 07:26 08/13/18 10:59 08/13/18 10:59 08/13/18 07:26 08/13/18 10:59 Intake & Output 08/12/18 08/13/18 08/14/18 06:59 06:59 06:59 Intake Total 640 3195 Output Total 2000 Balance -1360 3195 Weight 99.9 kg 100.2 kg General appearance: PRESENT: no acute distress, well-developed, well-nourished Head exam: PRESENT: atraumatic, normocephalic Respiratory exam: PRESENT: clear to auscultation kylie. ABSENT: rales, rhonchi, wheezes GI/Abdominal exam: PRESENT: normal bowel sounds, soft. ABSENT: distended, guarding, mass, organolmegaly, rebound, tenderness Neurological exam: PRESENT: alert, awake, oriented to person, oriented to place, oriented to time, oriented to situation, CN II-XII grossly intact. ABSENT: motor sensory deficit Results Laboratory Results: 08/12/18 06:04 08/12/18 06:04 08/07/18 16:15 Blood Blood Culture - Final NO GROWTH IN 5 DAYS 08/07/18 14:55 Blood Blood Culture - Final NO GROWTH IN 5 DAYS 08/07/18 14:55 Troponin I 0.052 Impressions: Chest X-Ray 08/07/18 14:47 IMPRESSION: There is marked opacification in the left base. By history there is neoplasm. Cannot exclude postobstructive atelectasis or consolidation. Abdomen/Pelvis CT 08/07/18 15:20 IMPRESSION: STABLE NONCONTRAST CT OF THE ABDOMEN AND PELVIS. EXTENSIVE SCLEROTIC BONY METASTASES. NO ACUTE FINDINGS. Head CT 08/07/18 15:20 IMPRESSION: NORMAL BRAIN CT WITHOUT CONTRAST. EVIDENCE OF ACUTE STROKE: NO. Ankle X-Ray 08/09/18 00:00 IMPRESSION: Acute spiral fracture distal right fibular metaphysis. No gross disruption of the ankle mortise. Chest CT 08/11/18 09:48 IMPRESSION: Increasing pericardial effusion. Slightly increased opacification in the left base. Atelectasis versus pneumonia. Mediastinal/left hilar mass not well defined in the absence of contrast. Osseous metastases. Assessment & Plan - Diagnosis (1) Pericardial effusion Is this a current diagnosis for this admission?: Yes Plan: No clinical signs of tamponade. Poor quality echo. Monitor vitals. If unstable will consider transferred to [facility] for possible epicardial window. (2) Acute and chronic respiratory failure Is this a current diagnosis for this admission?: Yes Plan: Improving. Saturating 97% on nasal cannula 5 L. Continue as needed BiPAP continue supplemental oxygen. This is likely related to recent immunotherapy. (3) SIRS (systemic inflammatory response syndrome) Is this a current diagnosis for this admission?: Yes Plan: Likely immune response to recent chemotherapy. Placed on high-dose steroids by oncologist. (4) Small cell lung cancer Is this a current diagnosis for this admission?: Yes Plan: Oncology on board. Recommendations noted. (5) Elevated liver enzymes Is this a current diagnosis for this admission?: Yes Plan: Improving. Likely immune response versus shock liver. LFTs tomorrow. (6) Altered mental state Is this a current diagnosis for this admission?: Yes Plan: Resolved. Altered mental status on admission due to metabolic encephalopathy likely due to SIRS/complication of recent chemotherapy. (7) Fx lateral malleolus-closed Qualifiers: Encounter type: initial encounter Fracture alignment: nondisplaced Laterality: right Qualified Code(s): S82.64XA - Nondisplaced fracture of lateral malleolus of right fibula, initial encounter for closed fracture Is this a current diagnosis for this admission?: Yes Plan: Orthopedic surgery consulted. No surgical intervention at this point needed. Supportive measures and physical therapy. (8) Thrombocytopenia Is this a current diagnosis for this admission?: Yes Plan: Improving. Likely due to recent chemotherapy. Monitor for any sign of bleeding. CMP tomorrow. (9) Physical deconditioning Is this a current diagnosis for this admission?: Yes Plan: Continue physical therapy. (10) Hypertension Is this a current diagnosis for this admission?: Yes Plan: Controlled. Continue beta-blockers. Monitor vitals adjust meds as needed.
[2018-08-14] MEDS: HYDROMORPHONE HCL INJ/PF 2 MG/ML AMPULE IV PRN ×7 (02:01→23:06)
[2018-08-14] MEDS: IMIPENEM/CILASTATIN SODIUM 500 MG in NORMAL SALINE 100 ML IV SCH ×4 (02:02→21:51)
[2018-08-14] MEDS: LEVOTHYROXINE SODIUM 0.1 MG TABLET PO SCH (05:08)
[2018-08-14] MEDS: NORMAL SALINE 1000 ML 1,000 ML IV PRN (05:10)
[2018-08-14] MEDS ORDERED: PROMETHAZINE HCL INJ 25 MG/1 ML VIAL IV PRN (10:26)
[2018-08-14] MEDS: METHYLPREDNISOLONE INJ 125 MG/2 ML SDV IV SCH (10:32)
[2018-08-14] MEDS: CARVEDILOL 12.5 MG TABLET PO SCH ×2 (10:32→21:55)
[2018-08-14] MEDS: OXYCODONE HCL SR 40 MG TABLET PO SCH ×2 (10:32→21:52)
[2018-08-14] MEDS: ALPRAZOLAM 0.5 MG TABLET PO PRN ×2 (10:33→21:52)
[2018-08-14] MEDS: GABAPENTIN 300 MG CAPSULE PO SCH ×4 (10:33→21:55)
[2018-08-14] MEDS: FAMOTIDINE INJ/PF 20 MG/2 ML SDV IV SCH ×2 (10:33→21:51)
[2018-08-14] MEDS: IPRATROPIUM/ALBUTEROL 0.5-2.5 MG/3 ML AMPUL NEB PRN (11:20)
--- NOTE | 2018-08-14 14:09 | PDOC PROGRESS REPORT ---
Subjective Progress Note for:: 08/14/18 Subjective:: No acute events overnight. Patient is stating she is feeling very weak and complaining of nausea. Denies any chest pain, shortness of breath, abdominal pain, constipation or any urinary symptoms. SBP 109-130, afebrile, HR 85-93, saturating 93-98% on 5-6 L FiO2 44%. Reason For Visit: PNEUMONIA,SEPSIS Physical Exam Vital Signs: Temp Pulse Resp BP Pulse Ox 97.5 F 93 20 133/67 H 95 08/14/18 13:08 08/14/18 13:08 08/14/18 13:08 08/14/18 13:08 08/14/18 13:08 Intake & Output 08/13/18 08/14/18 08/15/18 06:59 06:59 06:59 Intake Total 3195 2775 100 Output Total 500 Balance 3195 2275 100 Weight 100.2 kg 108.3 kg Results Laboratory Results: 08/12/18 06:04 08/12/18 06:04 08/07/18 14:55 Troponin I 0.052 Impressions: Chest X-Ray 08/07/18 14:47 IMPRESSION: There is marked opacification in the left base. By history there is neoplasm. Cannot exclude postobstructive atelectasis or consolidation. Abdomen/Pelvis CT 08/07/18 15:20 IMPRESSION: STABLE NONCONTRAST CT OF THE ABDOMEN AND PELVIS. EXTENSIVE SCLEROTIC BONY METASTASES. NO ACUTE FINDINGS. Head CT 08/07/18 15:20 IMPRESSION: NORMAL BRAIN CT WITHOUT CONTRAST. EVIDENCE OF ACUTE STROKE: NO. Ankle X-Ray 08/09/18 00:00 IMPRESSION: Acute spiral fracture distal right fibular metaphysis. No gross disruption of the ankle mortise. Chest CT 08/11/18 09:48 IMPRESSION: Increasing pericardial effusion. Slightly increased opacification in the left base. Atelectasis versus pneumonia. Mediastinal/left hilar mass not well defined in the absence of contrast. Osseous metastases. Assessment & Plan - Diagnosis (1) Pericardial effusion Is this a current diagnosis for this admission?: Yes Plan: No clinical signs of tamponade. Poor quality echo. Monitor vitals. If unstable will consider transferred to [facility] for possible epicardial window. (2) Acute and chronic respiratory failure Is this a current diagnosis for this admission?: Yes Plan: Unchanged from yesterday. SBP 109-130, afebrile, HR 85-93, saturating 93-98% on 5-6 L FiO2 44%. Continue as needed BiPAP continue supplemental oxygen. This is likely related to recent immunotherapy. (3) SIRS (systemic inflammatory response syndrome) Is this a current diagnosis for this admission?: Yes Plan: Likely immune response to recent chemotherapy. Placed on high-dose steroids by oncologist. (4) Small cell lung cancer Is this a current diagnosis for this admission?: Yes Plan: Oncology on board. Recommendations noted. (5) Elevated liver enzymes Is this a current diagnosis for this admission?: Yes Plan: Improving. Likely immune response versus shock liver. LFTs tomorrow. (6) Altered mental state Is this a current diagnosis for this admission?: Yes Plan: Resolved. Altered mental status on admission due to metabolic encephalopathy likely due to SIRS/complication of recent chemotherapy. (7) Fx lateral malleolus-closed Qualifiers: Encounter type: initial encounter Fracture alignment: nondisplaced Laterality: right Qualified Code(s): S82.64XA - Nondisplaced fracture of lateral malleolus of right fibula, initial encounter for closed fracture Is this a current diagnosis for this admission?: Yes Plan: Orthopedic surgery consulted. No surgical intervention at this point needed. Supportive measures and physical therapy. (8) Thrombocytopenia Is this a current diagnosis for this admission?: Yes Plan: Improving. Likely due to recent chemotherapy. Monitor for any sign of bleeding. CMP tomorrow. (9) Physical deconditioning Is this a current diagnosis for this admission?: Yes Plan: Continue physical therapy. (10) Hypertension Is this a current diagnosis for this admission?: Yes Plan: Controlled. Continue beta-blockers. Monitor vitals adjust meds as needed. SBP 109-130, afebrile, HR 85-93. Monitor vitals adjust meds as needed.
--- NOTE | 2018-08-14 22:50 | Progress Note ---
Provider Note Provider Note: CARDIOLOGY PROGRESS NOTE on 08/14/2018. SUBJECTIVE: The patient is sitting up in a chair patient complains of severe back pain. She also has pain in the right ankle region and also in the chest chest which is chest wall pain. She also continues to be short of breath. There is no pulsus paradoxus. Her blood pressure remains stable. There is no hypotension. There is no arrhythmias seen on the monitor.
[2018-08-15] MEDS: HYDROMORPHONE HCL INJ/PF 2 MG/ML AMPULE IV PRN ×7 (02:41→23:28)
[2018-08-15] MEDS: IMIPENEM/CILASTATIN SODIUM 500 MG in NORMAL SALINE 100 ML IV SCH ×3 (02:41→16:00)
[2018-08-15] MEDS: LEVOTHYROXINE SODIUM 0.1 MG TABLET PO SCH (06:52)
[2018-08-15 07:14] LABS: ABSOLUTE BASOPHILS # (AUTO) 0.1 10^3/uL (0.0-0.2); ABSOLUTE LYMPHOCYTES (AUTO) 1.4 10^3/uL (0.5-4.7); ABSOLUTE MONOCYTES (AUTO) 0.9 10^3/uL (0.1-1.4); ABSOLUTE NEUT (AUTO) 3.8 10^3/uL (1.7-8.2); BASOPHILS % (AUTO) 0.8 % (0-2); EOSINOPHILS % (AUTO) 0.6 % (0-6); HEMOGLOBIN 11.1 g/dL (12.0-15.5); MEAN CORPUSCULAR HEMOGLOBIN 30.6 pg (27.0-33.4); MEAN CORPUSCULAR HGB CONC 33.5 g/dL (32.0-36.0); MEAN CORPUSCULAR VOLUME 91 fl (80-97); MONOCYTES % (AUTO) 14.1 % (3-13); PLATELET COUNT 127 10^3/uL (150-450); RED BLOOD COUNT 3.61 10^6/uL (3.72-5.28); RED CELL DISTRIBUTION WIDTH 19.1 % (11.5-14.0); SEGMENTED NEUTROPHILS % (AUTO) 61.5 % (42-78); TOTAL CELLS COUNTED % (AUTO) 100 %; WHITE BLOOD COUNT 6.1 10^3/uL (4.0-10.5)
[2018-08-15 07:41] LABS: ALANINE AMINOTRANSFERASE 182 U/L (9-52); ALBUMIN 3.5 g/dL (3.5-5.0); ALKALINE PHOSPHATASE 286 U/L (38-126); ASPARTATE AMINO TRANSFERASE 232 U/L (14-36); BILIRUBIN,DIRECT 1.3 mg/dL (0.0-0.4); BILIRUBIN,TOTAL 1.8 mg/dL (0.2-1.3); BLOOD UREA NITROGEN 17 mg/dL (7-20); CALCIUM 8.4 mg/dL (8.4-10.2); CHLORIDE 92 mmol/L (98-107); GLUCOSE 100 mg/dL (75-110); POTASSIUM 4.3 mmol/L (3.6-5.0); SODIUM 139.5 mmol/L (137-145); TOTAL PROTEIN 6.3 g/dL (6.3-8.2)
[2018-08-15 07:53] LABS: CARBON DIOXIDE 47 mmol/L (22-30)
[2018-08-15 08:14] LABS: ANION GAP 1 (5-19)
--- NOTE | 2018-08-15 08:28 | PDOC PROGRESS REPORT ---
Subjective Progress Note for:: 08/15/18 Subjective:: Patient states that she is feeling better. She has a walking cast in place now due to fractured ankle. Breathing has improved. She is still not eating and drinking much. She has thick, green mucus with her productive cough. Has difficulty getting to the bathroom due to ankle. ROS: No diarrhea. Continued cough. No headaches. Reason For Visit: PNEUMONIA,SEPSIS Physical Exam Vital Signs: Temp Pulse Resp BP Pulse Ox 97.8 F 96 20 131/79 H 94 08/15/18 04:10 08/15/18 07:00 08/15/18 04:10 08/15/18 04:10 08/15/18 04:10 Intake & Output 08/14/18 08/15/18 08/16/18 06:59 06:59 06:59 Intake Total 2775 750 Output Total 500 2500 Balance 2275 -1750 Weight 108.3 kg 98.4 kg General appearance: PRESENT: obese Head exam: PRESENT: normocephalic Respiratory exam: PRESENT: crackles - Left base. Cardiovascular exam: PRESENT: RRR Extremities exam: PRESENT: +1 edema - Left ankle, other - Walking cast Right a nkle Neurological exam: PRESENT: alert, awake Psychiatric exam: PRESENT: appropriate affect Results Laboratory Results: 08/15/18 06:56 08/15/18 06:56 08/15/18 08/15/18 06:56 06:56 WBC 6.1 RBC 3.61 L Hgb 11.1 L Hct 33.0 L MCV 91 MCH 30.6 MCHC 33.5 RDW 19.1 H Plt Count 127 L Seg Neutrophils % 61.5 Lymphocytes % 23.0 Monocytes % 14.1 H Eosinophils % 0.6 Basophils % 0.8 Absolute Neutrophils 3.8 Absolute Lymphocytes 1.4 Absolute Monocytes 0.9 Absolute Eosinophils 0.0 Absolute Basophils 0.1 Sodium 139.5 Potassium 4.3 Chloride 92 L Carbon Dioxide 47 H* Anion Gap 1 L BUN 17 Creatinine 0.52 Est GFR ( Amer) > 60 Est GFR (Non-Af Amer) > 60 Glucose 100 Calcium 8.4 Magnesium 1.9 Total Bilirubin 1.8 H AST 232 H ALT 182 H Alkaline Phosphatase 286 H Total Protein 6.3 Albumin 3.5 08/07/18 14:55 Troponin I 0.052 Impressions: Chest X-Ray 08/07/18 14:47 IMPRESSION: There is marked opacification in the left base. By history there is neoplasm. Cannot exclude postobstructive atelectasis or consolidation. Abdomen/Pelvis CT 08/07/18 15:20 IMPRESSION: STABLE NONCONTRAST CT OF THE ABDOMEN AND PELVIS. EXTENSIVE SCLEROTIC BONY METASTASES. NO ACUTE FINDINGS. Head CT 08/07/18 15:20 IMPRESSION: NORMAL BRAIN CT WITHOUT CONTRAST. EVIDENCE OF ACUTE STROKE: NO. Ankle X-Ray 08/09/18 00:00 IMPRESSION: Acute spiral fracture distal right fibular metaphysis. No gross disruption of the ankle mortise. Chest CT 08/11/18 09:48 IMPRESSION: Increasing pericardial effusion. Slightly increased opacification in the left base. Atelectasis versus pneumonia. Mediastinal/left hilar mass not well defined in the absence of contrast. Osseous metastases. Assessment & Plan - Diagnosis (1) Small cell lung cancer Is this a current diagnosis for this admission?: Yes Plan: Treatment currently on hold, but plan to continue as outpatient. (2) Sepsis Qualifiers: Sepsis type: sepsis due to unspecified organism Qualified Code(s): A41.9 - Sepsis, unspecified organism Is this a current diagnosis for this admission?: Yes Plan: Resolving. Her PLT have improved. Her Cr remains normal. Her LFTs are still increasing. (3) Traumatic ecchymosis of right ankle Is this a current diagnosis for this admission?: Yes (4) Closed right ankle fracture Qualifiers: Encounter type: subsequent encounter Is this a current diagnosis for this admission?: Yes Plan: Walking boot in place. - Plan Summary Plan Summary: Patient requests Ensure supplements. I will arrange.
[2018-08-15 08:30] LABS: ARTERIAL BLOOD BASE EXCESS 17.3 mmol/L; ARTERIAL BLOOD H2CO3 2.53 mmol/L (1.05-1.35); ARTERIAL BLOOD HCO3 46.4 mmol/L (20-24); ARTERIAL BLOOD O2 SATURATION 95.4 % (94-98); ARTERIAL BLOOD PH 7.36 (7.35-7.45); ARTERIAL BLOOD PO2 84.5 mmHg (80-100)
[2018-08-15 08:34] LABS: ARTERIAL BLOOD FIO2 6L
[2018-08-15] MEDS: ALPRAZOLAM 0.5 MG TABLET PO PRN ×2 (08:46→22:15)
[2018-08-15] MEDS: OXYCODONE HCL SR 40 MG TABLET PO SCH ×2 (09:19→22:14)
[2018-08-15] MEDS: METHYLPREDNISOLONE INJ 125 MG/2 ML SDV IV SCH (09:20)
[2018-08-15] MEDS: CARVEDILOL 12.5 MG TABLET PO SCH ×2 (09:20→22:14)
[2018-08-15] MEDS: GABAPENTIN 300 MG CAPSULE PO SCH ×4 (09:20→22:15)
[2018-08-15] MEDS: FAMOTIDINE INJ/PF 20 MG/2 ML SDV IV SCH ×2 (09:25→22:15)
--- NOTE | 2018-08-15 19:14 | PDOC PROGRESS REPORT ---
Subjective Progress Note for:: 08/15/18 Subjective:: saw patient this afternoon. she was sitting and had pulled her bipap off. i asked her why and she became very defensive about it- kept saying she didn't mean to take it off but she doesn't like the bipap and needed her pain meds and needed to call the nurse. i explained to her why bipap is important for her. Reason For Visit: PNEUMONIA,SEPSIS Physical Exam Vital Signs: Temp Pulse Resp BP Pulse Ox 97.5 F 88 12 136/73 H 96 08/15/18 11:00 08/15/18 14:00 08/15/18 16:35 08/15/18 11:00 08/15/18 16:35 Intake & Output 08/14/18 08/15/18 08/16/18 06:59 06:59 06:59 Intake Total 2775 750 400 Output Total 500 2500 Balance 2275 -1750 400 Weight 238 lb 12.17 oz 216 lb 14.958 oz General appearance: PRESENT: no acute distress Head exam: PRESENT: atraumatic, normocephalic Eye exam: PRESENT: EOMI. ABSENT: conjunctival injection, scleral icterus Ear exam: PRESENT: normal external ear exam Mouth exam: PRESENT: tongue midline Neck exam: ABSENT: tracheal deviation Respiratory exam: PRESENT: decreased breath sounds - bilaterally at the bases, coarse breath sounds, symmetrical Cardiovascular exam: PRESENT: +S1, +S2 Pulses: PRESENT: +2 pedal pulses bilateral GI/Abdominal exam: PRESENT: normal bowel sounds, soft. ABSENT: tenderness Extremities exam: PRESENT: other - right foot in ortho boot Neurological exam: PRESENT: alert, awake, oriented to person, oriented to place, oriented to time Skin exam: PRESENT: dry, warm Results Laboratory Results: 08/15/18 06:56 08/15/18 06:56 08/15/18 08/15/18 08/15/18 06:56 06:56 08:20 WBC 6.1 RBC 3.61 L Hgb 11.1 L Hct 33.0 L MCV 91 MCH 30.6 MCHC 33.5 RDW 19.1 H Plt Count 127 L Seg Neutrophils % 61.5 Lymphocytes % 23.0 Monocytes % 14.1 H Eosinophils % 0.6 Basophils % 0.8 Absolute Neutrophils 3.8 Absolute Lymphocytes 1.4 Absolute Monocytes 0.9 Absolute Eosinophils 0.0 Absolute Basophils 0.1 Carbonic Acid 2.53 H HCO3/H2CO3 Ratio 18:1 ABG pH 7.36 ABG pCO2 84.0 H* ABG pO2 84.5 ABG HCO3 46.4 H ABG O2 Saturation 95.4 ABG Base Excess 17.3 FiO2 6L Sodium 139.5 Potassium 4.3 Chloride 92 L Carbon Dioxide 47 H* Anion Gap 1 L BUN 17 Creatinine 0.52 Est GFR ( Amer) > 60 Est GFR (Non-Af Amer) > 60 Glucose 100 Calcium 8.4 Magnesium 1.9 Total Bilirubin 1.8 H AST 232 H ALT 182 H Alkaline Phosphatase 286 H Total Protein 6.3 Albumin 3.5 08/07/18 14:55 Troponin I 0.052 Impressions: Chest X-Ray 08/07/18 14:47 IMPRESSION: There is marked opacification in the left base. By history there is neoplasm. Cannot exclude postobstructive atelectasis or consolidation. Abdomen/Pelvis CT 08/07/18 15:20 IMPRESSION: STABLE NONCONTRAST CT OF THE ABDOMEN AND PELVIS. EXTENSIVE SCLEROTIC BONY METASTASES. NO ACUTE FINDINGS. Head CT 08/07/18 15:20 IMPRESSION: NORMAL BRAIN CT WITHOUT CONTRAST. EVIDENCE OF ACUTE STROKE: NO. Ankle X-Ray 08/09/18 00:00 IMPRESSION: Acute spiral fracture distal right fibular metaphysis. No gross disruption of the ankle mortise. Chest CT 08/11/18 09:48 IMPRESSION: Increasing pericardial effusion. Slightly increased opacification in the left base. Atelectasis versus pneumonia. Mediastinal/left hilar mass not well defined in the absence of contrast. Osseous metastases. Assessment & Plan - Diagnosis (1) Small cell lung cancer Is this a current diagnosis for this admission?: Yes (2) Elevated liver enzymes Is this a current diagnosis for this admission?: Yes (3) Fx lateral malleolus-closed Qualifiers: Encounter type: initial encounter Fracture alignment: nondisplaced Laterality: right Qualified Code(s): S82.64XA - Nondisplaced fracture of lateral malleolus of right fibula, initial encounter for closed fracture Is this a current diagnosis for this admission?: Yes (4) Physical deconditioning Is this a current diagnosis for this admission?: Yes (5) Acute and chronic respiratory failure Is this a current diagnosis for this admission?: Yes (6) Hypertension Is this a current diagnosis for this admission?: Yes (7) Thrombocytopenia Is this a current diagnosis for this admission?: Yes - Plan Summary Plan Summary: Acute on chronic respiratory failure with hypercapnia- this morning her ABG showed pCO2 of 84- she was placed on Bipap. will repeat ABG later this evening. unclear etiology but possible from her SCC. she was started on IV Abx on admission - vanco was d/c'd and today i have stopped her Primaxin since she's been on it since 08/07- she remains afebrile SCC w/ mets- CT abdo/pelvis shows sclerotic lesions on the vertebra. she completed cycle #3 of her chemo Yervoy/Opdivo about 3 weeks ago or so. On Solumedrol 80mg IV daily per Oncology- appreciate assistance. 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 HTN- c/w coreg Hypothyroid- c/w synthroid Elevated LFTs- likely 2/2 chemo Thrombocytopenia- likely 2/2 chemo stop IV fluids today.
--- NOTE | 2018-08-15 21:12 | Progress Note ---
Provider Note Provider Note: ID Consult Note Asked by Pharmacy to review patient's chart. Pt not seen or examined. Ms. Jung is a 47 year old woman with PMH including obesity and extensive small cell lung cancer on immunotherapy who presented on 08/07 with complaints of fever the night before, generalized aching, generalized weakness and fall at home. She was noted in the ED to have fever 100.7 F, tachycardia, hypotension, ill appearance, and was mildly altered. She had labored breathing with decreased air movement and rales. She was found to have acute hypoxic respiratory failure and required BiPAP and was admitted to the ICU. Blood cultures were sent, which did not grow anything. Vancomycin and imipenem were started empirically. Her oncologist was consulted and felt that the changes in the LLL could reflect an endobronchial lesion or T cell recruitment to area of her cancer, and recommended starting solu-medrol. With steroids, she was noted to have improvement in her hypoxic respiratory failure. Tamponade was considered but not felt likely to contribute given chronicity of pericardial effusion and lack of other supportive findings. Empiric vancomycin was continued from 08/08-08/10 and imipenem from 08/07 to today 08/15. She has been afebrile since 08/08. Per most recent notes, pt felt breathing was better but admitted to greenish sputum production. ABG showed hypercapnea. Pt was intermittently compliant with BiPAP and required education regarding its purpose. Impression/Recommendations - The patient's oncologist felt that her hypoxic respiratory failure was most likely related to immunotherapy effect on the lung versus progression of disease and recommended steroids with clinical improvement noted. Her presentation may have been related to inflammation rather than infection but with clinical uncertainty early on, she was empirically treated with imipenem for suspected pneumonia. She completed at least 8 days of this. BCx are negative. No fever since admission. Not unstable. Doing better. - Agree with Dr Lyman regarding discontinuation of imipenem. Brady Schofield MD [facility] Infectious Diseases pager [phone]
[2018-08-15 21:48] LABS: ARTERIAL BLOOD BASE EXCESS 10.2 mmol/L; ARTERIAL BLOOD H2CO3 2.02 mmol/L (1.05-1.35); ARTERIAL BLOOD HCO3 37.7 mmol/L (20-24); ARTERIAL BLOOD O2 SATURATION 96.6 % (94-98); ARTERIAL BLOOD PCO2 67.2 mmHg (35-45); ARTERIAL BLOOD PH 7.37 (7.35-7.45); ARTERIAL BLOOD PO2 93.3 mmHg (80-100); ARTERIAL BLOOD TOTAL CO2 39.8 mmol/L (21-25)
[2018-08-15 21:50] LABS: ARTERIAL BLOOD FIO2 4L
--- NOTE | 2018-08-15 22:19 | Progress Note ---
Provider Note Provider Note: CARDIOLOGY PROGRESS NOTE by Dr. Bia Winn on 08/15/2018. SUBJECTIVE: The patient continues to be short of breath although she states is slight and there is slight improvement. She is on the BiPAP. She has no angina, upper or pain of pericarditis, but has musculoskeletal chest pain. The patient does have orthopnea which is chronic. There is no PND. She states that she is still has pain in the low back. And also at the fracture site of the right ankle. There is no arrhythmias seen on the monitor. There is no pulsus paradoxus seen, there is no clinical evidence of tamponade. She continues to have cough her appetite is decreased. There is no arrhythmias seen on the monitor. There is no TIA CVA symptoms. SUBJECTIVE: The patient is moderately to morbidly obese. In distress due to pain and shortness of breath. Selected Entries 08/15/18 08/15/18 09:10 11:00 Temperature 97.5 F Temperature Oral Source Pulse Rate 86 Respiratory 16 Rate Blood Pressure 136/73 H [Left Upper Arm ] Blood Pressure 94 Mean [Left Upper Arm] Blood Pressure Supine Position [Left Upper Arm] O2 Sat by Pulse 97 98 Oximetry Oxygen Delivery Bi-pap Bi-pap Method ( includes room air) Fraction of 50 Inspired Oxygen (FIO2) HEAD: Is atraumatic normocephalic. EYES: Pupils are equal round regular react to light accommodation. There is no conjunctival pallor. There is no scleral icterus. External ocular movements are normal. ENT is negative. NECK: Is supple there is JVD present. Carotids are equal there is no carotid bruits there is no lymphadenopathy. At present there is no accessory muscles of respiration use. LUNGS: There is diminished breath sounds in the right lower lobe of the lung. There is scattered rhonchi present. There is no rales of CHF. There is no chest wall tenderness on palpation. HEART: Heart sounds are muffled. S1-S2 is heard. There is no S3 gallop. There is no S4 gallop. There is no pulsus paradoxus. The systolic murmur in the left sternal border and the apex. There is no rub. ABDOMEN: Is obese. Nontender. There is no hepatosplenomegaly. Bowel sounds are well heard. EXTREMITIES: Femorals are deep. Femorals are diminished. There is no femoral bruits. Leg pulses are diminished. There is trace pedal edema. Right lower extremity is in a soft cast. There is no sinus or clubbing. THERE is no DVT or cellulitis. CURRICULUM AND INSTRUCTION SPECIALIST: The patient is conscious awake alert oriented x3 with no focal deficit. PSYCHIATRIC: The patient judgment and insight are intact she does appear to be slightly depressed. 08/15/18 08/15/18 06:56 06:56 WBC 6.1 RBC 3.61 L Hgb 11.1 L Hct 33.0 L MCV 91 MCH 30.6 MCHC 33.5 RDW 19.1 H Plt Count 127 L Seg Neutrophils % 61.5 Lymphocytes % 23.0 Monocytes % 14.1 H Eosinophils % 0.6 Basophils % 0.8 Absolute Neutrophils 3.8 Absolute Lymphocytes 1.4 Absolute Monocytes 0.9 Absolute Eosinophils 0.0 Sodium 139.5 Potassium 4.3 Chloride 92 L Carbon Dioxide 47 H* Anion Gap 1 L BUN 17 Creatinine 0.52 Est GFR (Non-Af Amer) > 60 Glucose 100 Calcium 8.4 Magnesium 1.9 Total Bilirubin 1.8 H Direct Bilirubin 1.3 H Neonat Total Bilirubin Not Reportable Neonat Direct Bilirubin Not Reportable Neonat Indirect Bili Not Reportable AST 232 H ALT 182 H Alkaline Phosphatase 286 H Total Protein 6.3 Albumin 3.5 IMPRESSION/RECOMMENDATION: 1. Pericardial effusion which seems to be moderate to large. There is no clinical evidence of tamponade at present. Continue to observe. Would recommend recheck the patient's echo in about 2-3 weeks, or if the patient should decompensate due to the pericardial effusion. The pericardial effusion seems to be chronic. And most likely related to her malignancy. [Malignant pericardial effusion]. 2. Small cell cancer of the lung with metastasis. 3. Abnormal liver function tests. 4. Fracture of the right ankle. Patient in a soft cast. 5. Acute on chronic respiratory failure. Slowly improving. Continue current respiratory treatments. 6. Hypertension blood pressure seems to be well-controlled. 7. Chronic pain syndrome: Continue analgesics. 8. Moderate to morbid obesity. MEDICATIONS reviewed. Discussed management plan with the other caregiving providers on the case. In spite of pericardial effusion, which seems to be chronic the patient has no evidence of tamponade. Hence we will sign off the case. Please reconsult if my services are needed. Consider pericardial window. Medical decision making is of moderate complexity at present. Note 40 minutes spent on this patient more than 50% of time spent in direct patient care. If the patient so desires she can follow-up with me in the office for a pericardial effusion.
[2018-08-16] MEDS: HYDROMORPHONE HCL INJ/PF 2 MG/ML AMPULE IV PRN ×6 (04:07→23:28)
[2018-08-16] MEDS: LEVOTHYROXINE SODIUM 0.1 MG TABLET PO SCH (05:53)
[2018-08-16] MEDS: CARVEDILOL 12.5 MG TABLET PO SCH ×2 (09:32→22:44)
[2018-08-16] MEDS: OXYCODONE HCL SR 40 MG TABLET PO SCH ×2 (09:32→22:44)
[2018-08-16] MEDS: FAMOTIDINE INJ/PF 20 MG/2 ML SDV IV SCH ×2 (09:32→22:45)
[2018-08-16] MEDS: METHYLPREDNISOLONE INJ 125 MG/2 ML SDV IV SCH (09:32)
[2018-08-16] MEDS: GABAPENTIN 300 MG CAPSULE PO SCH ×4 (09:33→22:44)
--- NOTE | 2018-08-16 11:01 | PDOC PROGRESS REPORT ---
Subjective Progress Note for:: 08/16/18 Subjective:: Patient was on BiPAP for most of the day yesterday because of CO2 accumulation, she would like to try and get up and move around the room. Today had a long discussion about her current status of disease and next steps of care. I discussed with her that she may indeed have progression of disease that worsening her lung status as opposed to immunotherapy effect. I had a long discussion about consideration of comfort care, at this point she is not ready for that discussion. I have discussed this with her mother as well, plan for family meeting tomorrow morning at 10 AM. Reason For Visit: PNEUMONIA,SEPSIS Physical Exam Vital Signs: Temp Pulse Resp BP Pulse Ox 97.3 F 88 16 128/97 H 91 L 08/16/18 08:13 08/16/18 08:13 08/16/18 08:13 08/16/18 08:13 08/16/18 08:13 Intake & Output 08/15/18 08/16/18 08/17/18 06:59 06:59 06:59 Intake Total 750 1500 Output Total 2500 Balance -1750 1500 Weight 98.4 kg General appearance: PRESENT: no acute distress, well-developed, well-nourished Head exam: PRESENT: atraumatic, normocephalic Eye exam: PRESENT: conjunctiva pink, EOMI, PERRLA. ABSENT: scleral icterus Ear exam: PRESENT: normal external ear exam Mouth exam: PRESENT: moist, tongue midline Neck exam: ABSENT: carotid bruit, JVD, lymphadenopathy, thyromegaly Respiratory exam: PRESENT: clear to auscultation kylie. ABSENT: rales, rhonchi, wheezes Cardiovascular exam: PRESENT: RRR. ABSENT: diastolic murmur, rubs, systolic m urmur Pulses: PRESENT: normal dorsalis pedis pul Vascular exam: PRESENT: normal capillary refill GI/Abdominal exam: PRESENT: normal bowel sounds, soft. ABSENT: distended, guarding, mass, organolmegaly, rebound, tenderness Rectal exam: PRESENT: deferred Extremities exam: PRESENT: full ROM. ABSENT: calf tenderness, clubbing, pedal edema Neurological exam: PRESENT: alert, awake, oriented to person, oriented to place, oriented to time, oriented to situation, CN II-XII grossly intact. ABSENT: motor sensory deficit Psychiatric exam: PRESENT: appropriate affect, normal mood. ABSENT: homicidal ideation, suicidal ideation Skin exam: PRESENT: dry, intact, warm. ABSENT: cyanosis, rash Results Laboratory Results: 08/15/18 06:56 08/15/18 06:56 08/15/18 21:30 Carbonic Acid 2.02 H HCO3/H2CO3 Ratio 18:1 ABG pH 7.37 ABG pCO2 67.2 H ABG pO2 93.3 ABG HCO3 37.7 H ABG O2 Saturation 96.6 ABG Base Excess 10.2 FiO2 4L 08/07/18 14:55 Troponin I 0.052 Impressions: Chest X-Ray 08/07/18 14:47 IMPRESSION: There is marked opacification in the left base. By history there is neoplasm. Cannot exclude postobstructive atelectasis or consolidation. Abdomen/Pelvis CT 08/07/18 15:20 IMPRESSION: STABLE NONCONTRAST CT OF THE ABDOMEN AND PELVIS. EXTENSIVE SCLEROTIC BONY METASTASES. NO ACUTE FINDINGS. Head CT 08/07/18 15:20 IMPRESSION: NORMAL BRAIN CT WITHOUT CONTRAST. EVIDENCE OF ACUTE STROKE: NO. Ankle X-Ray 08/09/18 00:00 IMPRESSION: Acute spiral fracture distal right fibular metaphysis. No gross disruption of the ankle mortise. Chest CT 08/11/18 09:48 IMPRESSION: Increasing pericardial effusion. Slightly increased opacification in the left base. Atelectasis versus pneumonia. Mediastinal/left hilar mass not well defined in the absence of contrast. Osseous metastases. Assessment & Plan - Diagnosis (1) Small cell lung cancer Is this a current diagnosis for this admission?: Yes Plan: Possibly progression, I would like to repeat CT of the chest today with contrast to see what the lung status looks like. (2) Sepsis Qualifiers: Sepsis type: sepsis due to unspecified organism Qualified Code(s): A41.9 - Sepsis, unspecified organism Is this a current diagnosis for this admission?: Yes Plan: Resolved, continue to monitor (3) Elevated liver enzymes Is this a current diagnosis for this admission?: Yes Plan: Improved, continue to monitor (4) Respiratory failure with hypoxia Qualifiers: Chronicity: acute Qualified Code(s): J96.01 - Acute respiratory failure with hypoxia Is this a current diagnosis for this admission?: Yes Plan: Seems to be going back and forth with improvement and worsening, may be secondary to progressive lung cancer, we will repeat CT of the chest to reevaluate. (5) Thrombocytopenia Is this a current diagnosis for this admission?: Yes Plan: Platelet count has been stable (6) Closed right ankle fracture Qualifiers: Encounter type: subsequent encounter Is this a current diagnosis for this admission?: Yes Plan: Boot placed, continue to monitor (7) Physical deconditioning Is this a current diagnosis for this admission?: Yes Plan: Physical therapy today (8) Pericardial effusion Is this a current diagnosis for this admission?: Yes Plan: Stable, no evidence of tamponade as of yet, will monitor - Time Time Spent with patient: 35 or more minutes - Inpatient Certification Based on my medical assessment, after consideration of the patient's comorbidities, presenting symptoms, or acuity I expect that the services needed warrant INPATIENT care.: Yes I certify that my determination is in accordance with my understanding of Medicare's requirements for reasonable and necessary INPATIENT services [42 CFR 412.3e].: Yes Medical Necessity: Risk of Complication if Not Cared For in Hospital
[2018-08-16 12:51] LABS: BLOOD UREA NITROGEN 18 mg/dL (7-20); CALCIUM 8.5 mg/dL (8.4-10.2); CHLORIDE 90 mmol/L (98-107); GLUCOSE 201 mg/dL (75-110); POTASSIUM 4.5 mmol/L (3.6-5.0); SODIUM 139.8 mmol/L (137-145)
[2018-08-16 13:03] LABS: ANION GAP 3 (5-19)
[2018-08-16 13:04] LABS: CARBON DIOXIDE 47 mmol/L (22-30)
[2018-08-16] MEDS: ALPRAZOLAM 0.5 MG TABLET PO PRN ×2 (13:26→22:46)
--- NOTE | 2018-08-16 15:04 | PDOC PROGRESS REPORT ---
Subjective Progress Note for:: 08/16/18 Subjective:: saw patient this afternoon. she's off bipap and on NC now. still has some SOB but otherwise has no new complaints. discussed about her care and use of Abx. she denies chest pain, abdominal pain, n/v or dizziness Reason For Visit: PNEUMONIA,SEPSIS Physical Exam Vital Signs: Temp Pulse Resp BP Pulse Ox 98.5 F 89 16 114/71 95 08/16/18 12:02 08/16/18 14:00 08/16/18 12:02 08/16/18 12:02 08/16/18 12:02 Intake & Output 08/15/18 08/16/18 08/17/18 06:59 06:59 06:59 Intake Total 750 1500 Output Total 2500 Balance -1750 1500 Weight 216 lb 14.958 oz General appearance: PRESENT: no acute distress Head exam: PRESENT: atraumatic, normocephalic, other - ecchymosis noted on left cheek Eye exam: PRESENT: EOMI. ABSENT: conjunctival injection, scleral icterus Ear exam: PRESENT: normal external ear exam Mouth exam: PRESENT: moist, tongue midline Neck exam: ABSENT: tracheal deviation Respiratory exam: PRESENT: decreased breath sounds - bilaterally but mostly of the left, rhonchi, wheezes - occasional expiratory Cardiovascular exam: PRESENT: +S1, +S2 Pulses: PRESENT: +2 pedal pulses bilateral GI/Abdominal exam: PRESENT: normal bowel sounds, soft. ABSENT: tenderness Extremities exam: PRESENT: other - right leg with ortho boot noted. ABSENT: pedal edema Neurological exam: PRESENT: alert, awake, oriented to person, oriented to place, oriented to time, CN II-XII grossly intact Skin exam: PRESENT: dry, warm Results Laboratory Results: 08/15/18 06:56 08/16/18 11:20 08/15/18 08/16/18 21:30 11:20 Carbonic Acid 2.02 H HCO3/H2CO3 Ratio 18:1 ABG pH 7.37 ABG pCO2 67.2 H ABG pO2 93.3 ABG HCO3 37.7 H ABG O2 Saturation 96.6 ABG Base Excess 10.2 FiO2 4L Sodium 139.8 Potassium 4.5 Chloride 90 L Carbon Dioxide 47 H* Anion Gap 3 L BUN 18 Creatinine 0.57 Est GFR ( Amer) > 60 Est GFR (Non-Af Amer) > 60 Glucose 201 H Calcium 8.5 08/07/18 14:55 Troponin I 0.052 Impressions: Chest X-Ray 08/07/18 14:47 IMPRESSION: There is marked opacification in the left base. By history there is neoplasm. Cannot exclude postobstructive atelectasis or consolidation. Abdomen/Pelvis CT 08/07/18 15:20 IMPRESSION: STABLE NONCONTRAST CT OF THE ABDOMEN AND PELVIS. EXTENSIVE SCLEROTIC BONY METASTASES. NO ACUTE FINDINGS. Head CT 08/07/18 15:20 IMPRESSION: NORMAL BRAIN CT WITHOUT CONTRAST. EVIDENCE OF ACUTE STROKE: NO. Ankle X-Ray 08/09/18 00:00 IMPRESSION: Acute spiral fracture distal right fibular metaphysis. No gross disruption of the ankle mortise. Chest CT 08/11/18 09:48 IMPRESSION: Increasing pericardial effusion. Slightly increased opacification in the left base. Atelectasis versus pneumonia. Mediastinal/left hilar mass not well defined in the absence of contrast. Osseous metastases. Assessment & Plan - Diagnosis (1) Small cell lung cancer Is this a current diagnosis for this admission?: Yes (2) Elevated liver enzymes Is this a current diagnosis for this admission?: Yes (3) Fx lateral malleolus-closed Qualifiers: Encounter type: initial encounter Fracture alignment: nondisplaced Laterality: right Qualified Code(s): S82.64XA - Nondisplaced fracture of lateral malleolus of right fibula, initial encounter for closed fracture Is this a current diagnosis for this admission?: Yes (4) Physical deconditioning Is this a current diagnosis for this admission?: Yes (5) Acute and chronic respiratory failure Is this a current diagnosis for this admission?: Yes (6) Hypertension Is this a current diagnosis for this admission?: Yes (7) Thrombocytopenia Is this a current diagnosis for this admission?: Yes - Plan Summary Plan Summary: acute on chronic respiratory failure with hypercapnia- pCO2 better but still elevated with normal pH-i am not sure why she's retaining pCO2 but it would be due to her knows SCC but hypoventilation from high dose of pain meds- i am going to decrease her pain meds today and see if that helps. sepsis- ruled out- appreciate Dr Schofield from her assistance- i have stopped all abx for now. most recently she was on primaxin. likely CT chest findings were more inflammatory and less likely infectious- afebrile. Chronic pain- i have lowered her oxycontin 80-->40mg. dilaudid prn SCC w/ mets- CT abdo/pelvis shows sclerotic lesions on the vertebra. she completed cycle #3 of her chemo Yervoy/Opdivo about 3 weeks ago or so. On Solumedrol 80mg IV daily per Oncology- appreciate assistance. 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 HTN- c/w coreg Hypothyroid- c/w synthroid Elevated LFTs- likely 2/2 chemo- monitor Thrombocytopenia- likely 2/2 chemo start on some elodia hydration for a day and see how she does
[2018-08-16] MEDS: IPRATROPIUM/ALBUTEROL 0.5-2.5 MG/3 ML AMPUL NEB PRN (17:14)
[2018-08-16] MEDS: NORMAL SALINE 1000 ML 1,000 ML IV PRN (22:45)
[2018-08-17] MEDS: LEVOTHYROXINE SODIUM 0.1 MG TABLET PO SCH (05:40)
[2018-08-17] MEDS: HYDROMORPHONE HCL INJ/PF 2 MG/ML AMPULE IV PRN ×3 (05:40→11:57)
[2018-08-17 07:18] LABS: ALANINE AMINOTRANSFERASE 166 U/L (9-52); ALBUMIN 3.6 g/dL (3.5-5.0); ALKALINE PHOSPHATASE 277 U/L (38-126); ASPARTATE AMINO TRANSFERASE 189 U/L (14-36); BILIRUBIN,DIRECT 1.2 mg/dL (0.0-0.4); BILIRUBIN,TOTAL 1.5 mg/dL (0.2-1.3); BLOOD UREA NITROGEN 18 mg/dL (7-20); CALCIUM 8.5 mg/dL (8.4-10.2); CHLORIDE 92 mmol/L (98-107); GLUCOSE 124 mg/dL (75-110); POTASSIUM 4.5 mmol/L (3.6-5.0); SODIUM 141.5 mmol/L (137-145); TOTAL PROTEIN 6.5 g/dL (6.3-8.2)
[2018-08-17 07:48] LABS: ANION GAP 3 (5-19)
[2018-08-17 07:49] LABS: CARBON DIOXIDE 47 mmol/L (22-30)
[2018-08-17] MEDS: NORMAL SALINE 1000 ML 1,000 ML IV PRN (08:48)
[2018-08-17] MEDS: METHYLPREDNISOLONE INJ 125 MG/2 ML SDV IV SCH (09:28)
[2018-08-17] MEDS: GABAPENTIN 300 MG CAPSULE PO SCH ×2 (09:29→13:02)
[2018-08-17] MEDS: FAMOTIDINE INJ/PF 20 MG/2 ML SDV IV SCH (09:29)
[2018-08-17] MEDS: OXYCODONE HCL SR 40 MG TABLET PO SCH (09:29)
[2018-08-17] MEDS: CARVEDILOL 12.5 MG TABLET PO SCH (09:29)
[2018-08-17] MEDS: ALPRAZOLAM 0.5 MG TABLET PO PRN (10:06)
--- NOTE | 2018-08-17 10:08 | RADIOLOGY REPORT (SQ) ---
EXAM DESCRIPTION: CT CHEST WITH COMPLETED DATE/TIME: 08/17/2018 9:55 am REASON FOR STUDY: Reassess Disease progress COMPARISON: 08/12/2018 TECHNIQUE: CT scan of the chest performed using helical scanning technique with dynamic intravenous contrast injection. Images reviewed with lung, soft tissue and bone windows. Reconstructed coronal and sagittal MPR and MIP images reviewed. All images stored on PACS. All CT scanners at this facility use dose modulation, iterative reconstruction, and/or weight based d osing when appropriate to reduce radiation dose to as low as reasonably achievable (ALARA). [facility]: Dose Right [facility]: CareDose [facility]: Dose Right [facility]: Teradose 4D [facility]: [employer] CONTRAST TYPE AND DOSE: Not recorded not recorded RENAL FUNCTION: GFR > 60. RADIATION DOSE: . LIMITATIONS: None. FINDINGS: LUNGS AND PLEURA: Pleural changes at the right base are stable. Compressive atelectasis a t the left base stable. No interval development of nodules. HILAR AND MEDIASTINAL STRUCTURES: No obvious hilar or mediastinal masses. HEART AND VASCULAR STRUCTURES: No aneurysm or dissection. No central pulmonary emboli. No pericardi al effusion. Massive pericardium effusion. HARDWARE: None in the chest. UPPER ABDOMEN: No significant findings. Limited exam. THYROID AND OTHER SOFT TISSUES: No masses. No adenopathy. BONES: Osseous metastatic disease without progression since the previous study. OTHER: No other significant finding. IMPRESSION: There is a massive pericardial effusion. No progression of disease since the previous study. Bony metastatic lesions. Opacities at the lung bases. TECHNICAL DOCUMENTATION: JOB ID: [id number] Quality ID # [id number]: Final reports with documentation of one or more dose reduction techniques (e.g., Au tomated exposure control, adjustment of the mA and/or kV according to patient size, use of iterative reconstruction technique) 2010 [employer]- All Rights Reserved Reading location - IP/workstation name: [email or web address]
--- NOTE | 2018-08-17 11:03 | PDOC PROGRESS REPORT ---
Subjective Progress Note for:: 08/17/18 Subjective:: Patient still feeling quite a bit of pressure in the chest area, we did repeat CT of the chest. Unfortunately the pericardial effusion has increased greatly, the lung status looks stable. We discussed the possible need for pericardiocentesis plus/minus pericardial window. Reason For Visit: PNEUMONIA,SEPSIS Physical Exam Vital Signs: Temp Pulse Resp BP Pulse Ox 97.7 F 93 16 139/86 H 97 08/17/18 08:14 08/17/18 08:14 08/17/18 08:14 08/17/18 08:14 08/17/18 08:14 Intake & Output 08/16/18 08/17/18 08/18/18 06:59 06:59 06:59 Intake Total 1500 1263 1000 Output Total 600 Balance 8529 262 0197 Weight 98.4 kg General appearance: PRESENT: no acute distress, well-developed, well-nourished Head exam: PRESENT: atraumatic, normocephalic Eye exam: PRESENT: conjunctiva pink, EOMI, PERRLA. ABSENT: scleral icterus Ear exam: PRESENT: normal external ear exam Mouth exam: PRESENT: moist, tongue midline Neck exam: ABSENT: carotid bruit, JVD, lymphadenopathy, thyromegaly Respiratory exam: PRESENT: clear to auscultation kylie. ABSENT: rales, rhonchi, wheezes Cardiovascular exam: PRESENT: RRR. ABSENT: diastolic murmur, rubs, systolic murmur Pulses: PRESENT: normal dorsalis pedis pul Vascular exam: PRESENT: normal capillary refill GI/Abdominal exam: PRESENT: normal bowel sounds, soft. ABSENT: distended, guarding, mass, organolmegaly, rebound, tenderness Rectal exam: PRESENT: deferred Extremities exam: PRESENT: full ROM. ABSENT: calf tenderness, clubbing, pedal edema Neurological exam: PRESENT: alert, awake, oriented to person, oriented to place, oriented to time, oriented to situation, CN II-XII grossly intact. ABSENT: motor sensory deficit Psychiatric exam: PRESENT: appropriate affect, normal mood. ABSENT: homicidal ideation, suicidal ideation Skin exam: PRESENT: dry, intact, warm. ABSENT: cyanosis, rash Results Laboratory Results: 08/15/18 06:56 08/17/18 06:35 08/16/18 08/17/18 11:20 06:35 Sodium 139.8 141.5 Potassium 4.5 4.5 Chloride 90 L 92 L Carbon Dioxide 47 H* 47 H* Anion Gap 3 L 3 L BUN 18 18 Creatinine 0.57 0.51 L Est GFR ( Amer) > 60 > 60 Est GFR (Non-Af Amer) > 60 > 60 Glucose 201 H 124 H Calcium 8.5 8.5 Magnesium 2.2 Total Bilirubin 1.5 H AST 189 H ALT 166 H Alkaline Phosphatase 277 H Total Protein 6.5 Albumin 3.6 08/07/18 14:55 Troponin I 0.052 Impressions: Chest X-Ray 08/07/18 14:47 IMPRESSION: There is marked opacification in the left base. By history there is neoplasm. Cannot exclude postobstructive atelectasis or consolidation. Abdomen/Pelvis CT 08/07/18 15:20 IMPRESSION: STABLE NONCONTRAST CT OF THE ABDOMEN AND PELVIS. EXTENSIVE SCLEROTIC BONY METASTASES. NO ACUTE FINDINGS. Head CT 08/07/18 15:20 IMPRESSION: NORMAL BRAIN CT WITHOUT CONTRAST. EVIDENCE OF ACUTE STROKE: NO. Ankle X-Ray 08/09/18 00:00 IMPRESSION: Acute spiral fracture distal right fibular metaphysis. No gross disruption of the ankle mortise. Chest CT 08/17/18 09:06 IMPRESSION: There is a massive pericardial effusion. No progression of disease since the previous study. Bony metastatic lesions. Opacities at the lung bases. Assessment & Plan - Diagnosis (1) Small cell lung cancer Is this a current diagnosis for this admission?: Yes Plan: Progressive disease with increased pericardial effusion, however it is notable that the lung status is stable. There is disease in the bone but there is no new disease in the abdomen or the brain. Therefore, we discussed the possibili ty of it being related to immune therapy effect. Would be aggressive and plan for pericardiocentesis as there is not distant disease that is new as of now and she is only had 3 infusions of immunotherapy, do not believe she has had enough time to let full effect take place. (2) Sepsis Qualifiers: Sepsis type: sepsis due to unspecified organism Qualified Code(s): A41.9 - Sepsis, unspecified organism Is this a current diagnosis for this admission?: Yes Plan: Now resolved, doing better from the standpoint (3) Elevated liver enzymes Is this a current diagnosis for this admission?: Yes Plan: Improved, probably related to immunotherapy (4) Respiratory failure with hypoxia Qualifiers: Chronicity: acute Qualified Code(s): J96.01 - Acute respiratory failure with hypoxia Is this a current diagnosis for this admission?: Yes Plan: Seems to have had worsening, at this point it may be more cardiac related rather than lung related with the pericardial effusion (5) Thrombocytopenia Is this a current diagnosis for this admission?: Yes Plan: Stable (6) Closed right ankle fracture Qualifiers: Encounter type: subsequent encounter Is this a current diagnosis for this admission?: Yes Plan: Seen by orthopedics, boot is placed, no surgical intervention per Ortho as of now (7) Physical deconditioning Is this a current diagnosis for this admission?: Yes Plan: Will need physical therapy continued as an inpatient (8) Pericardial effusion Is this a current diagnosis for this admission?: Yes Plan: I believe this is a malignant pericardial effusion, needs pericardiocentesis with likely pericardial window. I discussed this with Dr. MERCEDES from cardiology who agrees, he will begin making plans for transfer to [place]. - Time Time Spent with patient: 35 or more minutes - Inpatient Certification Based on my medical assessment, after consideration of the patient's comorbidities, presenting symptoms, or acuity I expect that the services needed warrant INPATIENT care.: Yes I certify that my determination is in accordance with my understanding of Medicare's requirements for reasonable and necessary INPATIENT services [42 CFR 412.3e].: Yes Medical Necessity: Need For Continuous Telemetry Monitoring, Need for Nebulizer Therapy and Monitoring of Response, Need for Surgery, Risk of Complication if Not Cared For in Hospital
[2018-08-17 12:01] VITALS: BP 123/82
--- NOTE | 2018-08-17 13:37 | PDOC DISCHARGE SUMMARY ---
General - Admit/Disc Date/PCP Admission Date/Primary Care Provider: 08/07/18 16:10 JASMIN TY MD Discharge Date: 08/17/18 - [place] [facility] [place] Discharge Diagnosis (1) Small cell lung cancer Is this a current diagnosis for this admission?: Yes (2) Elevated liver enzymes Is this a current diagnosis for this admission?: Yes (3) Fx lateral malleolus-closed Is this a current diagnosis for this admission?: Yes (4) Physical deconditioning Is this a current diagnosis for this admission?: Yes (5) Acute and chronic respiratory failure Is this a current diagnosis for this admission?: Yes (6) Hypertension Is this a current diagnosis for this admission?: Yes (7) Thrombocytopenia Is this a current diagnosis for this admission?: Yes - Additional Information Resuscitation Status: Full Code Discharge Activity: Bedrest Home Medications: Levothyroxine Sodium [Synthroid 0.1 mg Tablet] 100 mcg PO DAILY 06/23/11 Furosemide [Lasix 20 mg Tablet] 20 mg PO QAM PRN 09/09/12 Acetaminophen [Tylenol] 325 mg PO DAILYP PRN 08/16/15 Gabapentin [Neurontin 300 mg Capsule] 300 mg PO QID 08/07/18 Alprazolam [Xanax 0.5 mg Tablet] 0.5 mg PO Q8HP PRN tablet 08/17/18 Carvedilol [Coreg 12.5 mg Tablet] 12.5 mg PO Q12 tablet 08/17/18 Gabapentin [Neurontin 300 mg Capsule] 300 mg PO QID capsule 08/17/18 Hydromorphone HCl/Pf [Dilaudid Inj/Pf 2 mg/ml Ampule] 2 mg IV Q3HP PRN vial 08/17/18 Ipratropium/Albuterol Sulfate [Duoneb 3 ml Ampul] 3 ml NEB RTQ6HP PRN vial.neb 08/17/18 Levothyroxine Sodium [Synthroid 0.1 mg Tablet] 0.1 mg PO Q6AM tablet 08/17/18 Methylprednisolone Sod Succ/Pf [Solu-Medrol Inj/Pf 125 mg/2 ml Sdv] 80 mg IV DAILY vial 08/17/18 Oxycodone HCl [Oxycontin Sr 40 mg Tablet] 40 mg PO Q12 tab.sr.12h 08/17/18 History of Present Illness History of Present Illness: QUINTON L MISTY is a 47 year old female was admitted for respiratory failure and suspected Pneumonia. H&P PER Dr Weber "QUINTON JAY is a 47 year old female past medical history of small cell lung cancer stage IV currently under care of Dr. Bhumi reyna receiving chemotherapy. Patient is currently on CTLV 4 therapy. Last treatment July 31. Was seen here on the and had CT scan of the chest. As per mother patient was feeling weak and last night she had a fall in the morning she was having generalized pain and weakness and Dr. Ty was called and they were advised to go to ED. In ED patient was found to have with hypot ension, fever tachycardia and presumed sepsis. Patient developed a fever last night. Continues to hurt all over. Has bruising on her face. Patient is mildly altered. Dr. Ty was notified by ED physician. And was started on sepsis protocol and empiric antibiotics. Patient was admitted to ICU. " Hospital Course Hospital Course: 47-year-old female who was admitted to [facility] on 08/07/18 for complaints of fever, generalized weakness and a fall at home. She is found to have a fever of 100.7, tachycardia and hypotensive. She also had some altered mental status which improved gradually. She was started on BiPAP and admitted to the ICU for acute respiratory failure with hypoxia. Cultures were sent but so far have remained negative. Due to concerns for pneumonia she was empirically started on vancomycin and imipenem. ID was consulted later and recommended discontinuing vancomycin after receiving a week of antibiotics. After 8 days imipenem was also discontinued. It was felt by oncology that it is less likely pneumonia and most likely immunotherapy related respiratory failure and hence was started on IV Solu-Medrol daily. Oncology was consulted due to history of stage IV small cell lung cancer with metastases to the bones. She has recently been started on immunotherapy with dual agent-Yervoy/Opdivo-she had received cycle 3 about 1 week prior to admission. CT chest abdomen and pelvis were completed. CT chest showed a stable pericardial effusion which she has been known for. Cardiology was consulted to evaluate further and we also did an echocardiogram. Per cardiology the pericardial effusion seems to be moderate to large. Per cardiology there was no evidence of tamponade. They recommended to continue monitoring. Cardiology felt this was related to her malignancy. Patient continued to have shortness of breath and was placed on BiPAP and transferred to stepdown unit- IM. Her ABG 2 days ago on 08/15/18 showed PCO2 of 84 with a pH of 7.3 and a bicarb of 46. After being on the BiPAP for more than 8-10 hours her PCO2 improved to 67 with a pH of 7.3. On serum BMP her CO remain high at 47 with a pH of 7 3. Off of the BiPAP she was requiring 6 L oxygen with oxygen saturation greater than 92%. Otherwise her other vital signs remained within normal limits Today she was found to be in worse dyspnea and a CT chest was reordered which showed a worsening larger pericardial effusion. Repeat echocardiogram ordered and pending. Cardiology and oncology at this time recommends we transfer patient for possible intervention such as a pericardial window. Unfortunately we do not have the services here and I reached out to [facility] and spoke with cardiology at the facility. Dr Colvin graciously accepted the patient for transfer. I had wanted air transported but unfortunately given the weather today she will have to go by ground ALS support. I explained the risks to the patient of transport by ground, including , and she verbalized understands and accepts. Physical Exam Vital Signs: Temp Pulse Resp BP Pulse Ox 98.1 F 90 15 123/82 95 08/17/18 11:48 08/17/18 11:48 08/17/18 11:48 08/17/18 11:48 08/17/18 11:32 Intake & Output 08/16/18 08/17/18 08/18/18 06:59 06:59 06:59 Intake Total 1500 1263 1000 Output Total 600 Balance 8622 721 3424 Weight 216 lb 14.958 oz General appearance: PRESENT: mild distress, obese Head exam: PRESENT: atraumatic, normocephalic Eye exam: PRESENT: EOMI. ABSENT: conjunctival injection, scleral icterus Ear exam: PRESENT: normal external ear exam Mouth exam: PRESENT: tongue midline Neck exam: ABSENT: tracheal deviation Respiratory exam: PRESENT: accessory muscle use, decreased breath sounds, rhonchi, tachypnea Cardiovascular exam: PRESENT: +S1, +S2 Pulses: PRESENT: +2 pedal pulses bilateral GI/Abdominal exam: PRESENT: normal bowel sounds, soft. ABSENT: tenderness Extremities exam: ABSENT: joint swelling Neurological exam: PRESENT: alert, awake, oriented to person, oriented to place, oriented to time, CN II-XII grossly intact Skin exam: PRESENT: dry, warm Results Laboratory Results: 08/15/18 06:56 08/17/18 06:35 08/17/18 06:35 Sodium 141.5 Potassium 4.5 Chloride 92 L Carbon Dioxide 47 H* Anion Gap 3 L BUN 18 Creatinine 0.51 L Est GFR ( Amer) > 60 Est GFR (Non-Af Amer) > 60 Glucose 124 H Calcium 8.5 Magnesium 2.2 Total Bilirubin 1.5 H AST 189 H ALT 166 H Alkaline Phosphatase 277 H Total Protein 6.5 Albumin 3.6 08/07/18 14:55 Troponin I 0.052 Impressions: Chest X-Ray 08/07/18 14:47 IMPRESSION: There is marked opacification in the left base. By history there is neoplasm. Cannot exclude postobstructive atelectasis or consolidation. Abdomen/Pelvis CT 08/07/18 15:20 IMPRESSION: STABLE NONCONTRAST CT OF THE ABDOMEN AND PELVIS. EXTENSIVE SCLEROTIC BONY METASTASES. NO ACUTE FINDINGS. Head CT 08/07/18 15:20 IMPRESSION: NORMAL BRAIN CT WITHOUT CONTRAST. EVIDENCE OF ACUTE STROKE: NO. Ankle X-Ray 08/09/18 00:00 IMPRESSION: Acute spiral fracture distal right fibular metaphysis. No gross di sruption of the ankle mortise. Chest CT 08/17/18 09:06 IMPRESSION: There is a massive pericardial effusion. No progression of disease since the previous study. Bony metastatic lesions. Opacities at the lung bases. Qualifiers - * PATIENT BEING DISCHARGED WITH ANY OF THE FOLLOWING DIAGNOSIS: No Plan Time Spent: Greater than 30 Minutes
--- NOTE | 2018-08-17 14:02 | XCELERA REPORT ---
[address] [address] Transthoracic Echocardiogram Report Name: QUINTON JAY Age: 47 yrs Gender: Female : 1970 Patient Status: Inpatient Patient Location: [facility]^A Study Date: 08/17/2018 12:12 PM Height: 63 in Weight: 216 lb BSA: 2.0 m2 Procedure: A two-dimensional transthoracic echocardiogram with color flow and Doppler was performed in limited views only. Study Quality: Fair. Reason For Study: Pericardial effusion/ tamponade History: Pericardial effusion/ tamponade. Ordering Physician: BIA CORDERO Performed By: Ld Braga Interpretation Summary There is a large pericardial effusion.There is R diastolic collapse and significant respiratory phase variation in the mitral valve inflow suggestive of tamponade, but would recommend corelating clinically. Effusions There is a large pericardial effusion.There is R diastolic collapse and significant respiratory phase variation in the mitral valve inflow suggestive of tamponade, but would recommend corelating clinically. : BIA CORDERO > Bia Cordero
[2018-08-17 14:19] LABS: ARTERIAL BLOOD BASE EXCESS 12.1 mmol/L; ARTERIAL BLOOD H2CO3 2.67 mmol/L (1.05-1.35); ARTERIAL BLOOD O2 SATURATION 96.6 % (94-98); ARTERIAL BLOOD PH 7.29 (7.35-7.45); ARTERIAL BLOOD PO2 101.4 mmHg (80-100); ARTERIAL BLOOD TOTAL CO2 44.7 mmol/L (21-25)
[2018-08-17 14:23] LABS: ARTERIAL BLOOD FIO2 50%
[2018-08-17 14:24] LABS: ARTERIAL BLOOD PCO2 88.7 mmHg (35-45)
--- NOTE | 2018-08-17 14:49 | Progress Note ---
Provider Note Provider Note: CARDIOLOGY PROGRESS NOTE by Dr. Bia Winn on 08/17/2018 Asked to see the patient again due to increase in the pericardial effusion for possible need for pericardiocentesis/pericardial window. SUBJECTIVE: The patient continues to be short of breath. The CAT scan done shows massive cardial effusion. Bedside limited echo shows that there is a large pericardial effusion. There is right atrial diastolic collapse, and also wide variation in the respiratory phases of the mitral valve inflow suggestive of echo evidence of tamponade. But clinically the patient heart rate is only in the 80s-90s. And her blood pressure stable. And there is no pulses paradoxus. As clinically the patient is not in tamponade. She continues to be in respiratory distress. The patient will most likely benefit from pericardiocentesis/pericardial window. Since this is not available here agree with the transfer of the patient to [facility]. I have discussed this with a local surgeon who thinks that the patient should have it done at a tertiary care center rather than a year. This has been discussed extensively the patient in the patient's family. The patient does have orthopnea. There is no PND. There is no wheezing, there is cough but nonproductive of any sputum. Urine output is good. PHYSICAL EXAMINATION: The patient is moderately to morbidly obese. She is in moderate respiratory distress. Selected Entries 08/17/18 08/17/18 11:32 11:48 Temperature 98.1 F Temperature Oral Source Pulse Rate 90 Respiratory 15 Rate Blood Pressure 123/82 Blood Pressure 95 Mean BP Location Right Arm BP Position Sitting O2 Sat by Pulse 95 Oximetry Fraction of 40 Inspired Oxygen (FIO2) Oxygen Flow 5 Rate HEAD: Is atraumatic normocephalic. EYES: Pupils are equal round regular react to light accommodation. There is no conjunctival pallor. There is no scleral icterus. External ocular movements are normal. ENT is negative. NECK: Is supple there is JVD present. Carotids are equal there is no carotid bruits there is no lymphadenopathy. At present there is no accessory muscles of respiration use. LUNGS: There is diminished breath sounds in the right lower lobe of the lung. There is scattered rhonchi present. There is no rales of CHF. There is no chest wall tenderness on palpation. HEART: Heart sounds are muffled. S1-S2 is heard. There is no S3 gallop. There is no S4 gallop. There is no pulsus paradoxus. The systolic murmur in the left sternal border and the apex. There is no rub. ABDOMEN: Is obese. Nontender. There is no hepatosplenomegaly. Bowel sounds are well heard. EXTREMITIES: Femorals are deep. Femorals are diminished. There is no femoral bruits. Leg pulses are diminished. There is trace pedal edema. Right lower extremity is in a soft cast. There is no sinus or clubbing. THERE is no DVT or cellulitis. QUALITY CONTROL COORDINATOR: The patient is conscious awake alert oriented x3 with no focal deficit. PSYCHIATRIC: The patient judgment and insight are intact she does appear to be slightly depressed. 08/17/18 06:35 Sodium 141.5 Potassium 4.5 Chloride 92 L Carbon Dioxide 47 H* Anion Gap 3 L BUN 18 Creatinine 0.51 L Est GFR (Non-Af Amer) > 60 Glucose 124 H Calcium 8.5 Magnesium 2.2 Total Bilirubin 1.5 H Direct Bilirubin 1.2 H Neonat Total Bilirubin Not Reportable Neonat Direct Bilirubin Not Reportable Neonat Indirect Bili Not Reportable AST 189 H ALT 166 H Alkaline Phosphatase 277 H Total Protein 6.5 Albumin 3.6 IMPRESSION/RECOMMENDATION: 1. Pericardial effusion which seems to be larger than in prior echo. There is right atrial collapse in diastole, and wide respiratory variation of mitral inflow suggestive of echo evidence of tamponade. But clinically the patient is not in tamponade but may well go into it shortly. Hence agree with the patient being transferred to [facility] for pericardiocentesis/pericardial window.. Note that there is JVD present, but no pulses paradoxus, on Araceli abnormal liver function tests, the patient's urine output is good. Hence again definitely the patient not in tamponade. 2. Small cell cancer of the lung with bony metastasis. 3. Abnormal liver function tests. 4. Fracture of the right ankle. Patient in a soft cast. 5. Acute on chronic respiratory failure. Slowly improving. Continue current respiratory treatments. 6. Hypertension blood pressure seems to be well-controlled. 7. Chronic pain syndrome: Continue analgesics. 8. Moderate to morbid obesity. MEDICATIONS reviewed. Discussed management plan with the other caregiving providers on the case. Discussed with other caregiving providers on the case. Discussed with the patient and patient's family. The risks and benefits of transfer have been discussed. Medical decision making is of high complexity. 40 minutes spent on this patient with more than 50% of time spent in direct patient care. I have placed a call to Dr. Evans, CT surgeon and [facility] but is called to me went into my voicemail. He is gone into emergency surgery. Hence we will discuss with him later. Meanwhile transfer arrangements have been made by the hospitalist.
== END 2018-08-17 16:00 | disposition short-term general hospital (02) | DRG 189 ==
LOC: ER 14:38 → EH 16:10 → ICU 18:49 → 3S 08-12 15:20
PROVIDERS: ADMIT Internal Medicine; ATTEND Internal Medicine
PROC: 5A09557 Assistance with Respiratory Ventilation, Greater than 96 Consecutive Hours, Continuous Positive Airway Pressure (ICD-10-PCS; principal; 2018-08-07)
PROC: 3E0F73Z Introduction of Anti-inflammatory into Respiratory Tract, Via Natural or Artificial Opening (ICD-10-PCS; 2018-08-07)
DX: J96.01 Acute respiratory failure with hypoxia (principal); J18.9 Pneumonia, unspecified organism; C34.90 Malignant neoplasm of unspecified part of unspecified bronchus or lung; C79.51 Secondary malignant neoplasm of bone; T45.1X5A Adverse effect of antineoplastic and immunosuppressive drugs, initial encounter; S82.64XA Nondisplaced fracture of lateral malleolus of right fibula, initial encounter for closed fracture; W19.XXXA Unspecified fall, initial encounter; I10 Essential (primary) hypertension; F17.210 Nicotine dependence, cigarettes, uncomplicated; M19.90 Unspecified osteoarthritis, unspecified site; D64.9 Anemia, unspecified; S00.83XA Contusion of other part of head, initial encounter; E66.01 Morbid (severe) obesity due to excess calories; D69.59 Other secondary thrombocytopenia; G89.4 Chronic pain syndrome; Z88.2 Allergy status to sulfonamides; Z80.9 Family history of malignant neoplasm, unspecified; Z79.899 Other long term (current) drug therapy; Z79.890 Hormone replacement therapy; Z90.49 Acquired absence of other specified parts of digestive tract; Z88.0 Allergy status to penicillin; Z88.8 Allergy status to other drugs, medicaments and biological substances; Z91.040 Latex allergy status
CPT/HCPCS: 36415; 36591; 36600; 70450; 71045; 71250; 71260; 74176; 80048; 80053; 80202; 82803; 82962; 83605; 83735; 84484; 85025; 85027; 85610; 87040; 93005; 93010; 93306; 93321; 94640; 94660; 96361; 96365; 96375; 99291; J0743; J1170; J1885; J2550; J2930; J3370; J3490; J7030; J7060; J7620; S0028